=== PATIENT | female | born 1960 | race Caucasian/White ===

== ENCOUNTER → 2017-01-08 | Outpatient (CLI) | payer BC ==
[~2017-01-08] MED LIST: ADVAIR INH; ALBU0.5N2 NEB; AMB10 PO; AMLO-110 PO; CARI350T28 PO; CYCL10TA6 PO; FURO20TA PO; GABA-112 PO; LOSA50TA6 PO; MELATAB2 PO; MULT-506 PO; Pravastatin PO; VITAMIN C PO; VITAMIN D3 PO; Vit B12 PO; WARF2TAB PO; ZINC PO
== END | disposition home or self-care (01) ==
LOC: C.RDSM 07:32
PROVIDERS: ATTEND Physical Medicine & Rehabilitation Sports Medicine
DX: Z96.641 Presence of right artificial hip joint (principal); M25.551 Pain in right hip; M25.552 Pain in left hip

== ENCOUNTER → 2017-01-19 | Outpatient (CLI) | payer BC ==
--- NOTE | 2017-01-20 05:46 | PAP/PSG TECHNICIAN REPORT ---
[facility] Rn Case Manager Polysomnogram Report Study name: None Report date: 01/20/2017 Study date: 01/19/2017 Referring Physician: Alicja Gates M.D. Name: ABELINO MAISHA Jenelle Interpreting Physician: Bulmaro Gates M.D. Date of : 1960 Rn Case Manager: LUCIAN Husain. Sex: Female Age: 56 StudyType: PSG Weight: 255 lbs Height: 56 years, Height 5' 6" Neck Circum: BMI: 41.15 Medications: Mobic7.5mg, losartan Potassium 25mg, Ranitidine HCl 300mg, HCTZ 25mg, Advair, Percocet 5-325mg, Ambien 10mg Patient History Study started on room air with no ETCO2 monitoring in room #6. 56 [facility] She failed 2 home sleep studies. She has a long history of insomnia. She was diagnosed with OREN about 10 years ago but could not tolerate cpap. [facility]. She was instructed to take Ambien tonight but she said it does not work for her and that she will be taking 2 trazadone pills 50mg each. She snores and has witnessed apnea when she does sleep .Her neck circ=16.5inches. Parameters Monitored NPSG: E1-M2, E2-M1, Fp1-M2, Fp2-M1, F3-M2, F4-M2, F4-M1, C3-M2, C4-M2, C4-M1, O1-M2, O2-M2, O2-M1, T3-M2, T4-M1, P3-M2, P4-M1, CHIN1, CHIN2, HR, EKG, Legs, PFLOW, SNOR, FLOW, CFLOW, Tidal Volume, THOR, ABDO, SpO2, PLTH, CPRESS, ETCO2 Wave, ETCO2, pH Sleep Architecture Sleep Stages Time at Lights Off 10:53:55 PM STAGES Time (min.) TST (%) Time at Lights On 5:28:25 AM Wake 169.5 -- Total Recording Time (TRT) 394.50 min. N1 12.0 5 Total Sleep Period (TSP) 264.0 min. N2 124.0 55 Total Sleep Time (TST) 225.0min. N3 66.5 30 Awake Time 169.5 min. REM 22.5 10 Wake after Sleep Onset 39.0 min. Sleep Efficiency (SE) 57 % Sleep Onset Latency (JADON) 130.5 min. Number of Stage 1 Shifts None Awakenings 8 Stage Changes 59 Number of REM periods 5 REM 22.5 10 REM Latency 90.0 min. NREM 202.5 90 Body Position Analysis Supine Right Left Side Prone Vertical Total Sleep Time (min.) 71.3 187.5 35.4 222.85 0.0 0.0 Total Sleep Time (%) 1% 83% 16% 99 0% N/A% Total Sleep Time REM (min.) 0.0 22.5 0.0 None 0.0 0.0 Total Sleep Time NREM (min.) 2.1 165.0 35.4 None 0.0 0.0 Intermittent Wake (min.) 69.2 90.2 10.2 None 0.0 0.0 Total Sleep Period (%) 1% None None None None None Arousals Myoclonus (PLM) * Events Count Index Events Count Index Spontaneous 9 2 Events Awake (PLMW) 188 66.5 Respiratory 13 3.7 Events Asleep w/ Arousal (PLMA) 20 5.3 PLM 20 5 Events Asleep w/o Arousal (PLMS) 164 43.7 Snoring 4 1 Total Asleep 184 49.1 Total 45 12 Total 372 57 Respiratory Analysis * CA OA MA CH H RERA Total Count 0 3 0 0 30 0 33 Index 0.0 0.8 0.0 0 8.0 0 8.8 Mean Duration 0.0 17.4 0.0 0.00 24.8 0.0 24.2 Longest Duration 0.0 23.4 0.0 0.00 0.0 0.0 57.0 Respiratory Event Summary Total Supine ~Supine Right Left Prone REM NREM Apneas Count 3 0 3 1 2 N/A 0 3 Index 0.8 0 1 0.3 3.4 N/A 0 1 Hypopneas (4% Desat) Count 30 3 27 25 2 N/A 12 18 Index 8.0 83.9 7 8.0 3.4 N/A 32.0 5.3 Apneas & All Hypopneas Count 33 3 30 26 4 N/A 12 21 Index 8.8 84 8 8 7 N/A 32.0 6.2 Respiratory Events (Technical Planner+All Hyp+RERA) Count 33 3 30 26 4 N/A 12 21 Index 8.8 84 8 8.3 6.8 N/A 32.0 6.2 Respiratory Related Arousal Count 13 3 12 8 4 N/A 4 10 Index 3.7 56 3 3 7 N/A 11 3 Snoring Analysis Supine Right Left Prone REM NREM Total Snore duration 20.5 min Snores count 7 680 29 N/A 52 664 716 Snore mean duration 1.7 Sec Snores index 196 218 49 N/A 138.7 196.7 190.9 TST with snoring (%) 9.1% Desaturation Event Summary: Minimum %SpO2 Event Count Mean/Min/Max Duration(sec.) Desaturation Index % Time In Bed > 90 53 33.4 / 4.5 / 60.0 9.2 90.2 86 - 90 1 26.5 / 26.5 / 26.5 1.7 9.3 81 - 85 0 N/A 0.0 0.5 76 - 80 0 N/A 0.0 0.0 71 - 75 0 N/A 0.0 0.0 66 - 70 0 N/A 0.0 0.0 61 - 65 0 N/A 0.0 0.0 56 - 60 0 N/A 0.0 0.0 51 - 55 0 N/A 0.0 0.0 < 50 0 N/A 0.0 0.0 Total REM NREM Awake <50% 0.0 min. 0.0 min. 0.0 min. 0.0 min. 51 - 60% 0.0 min. 0.0 min. 0.0 min. 0.0 min. 61 - 70% 0.0 min. 0.0 min. 0.0 min. 0.0 min. 71 - 80% 0.1 min. 0.1 min. 0.0 min. 0.0 min. 81 - 90% 37.3 min. 7.1 min. 28.9 min. 1.3 min. 91 - 100% 345.9 min. 15.3 min. 173.5 min. 157.1 min. Average 93 92 92 95 Minimum SpO2 79 79 79 79 Desaturation Event Index 8.1 32.0 8.6 4.2 # Desat. Events below 89% 11 9 2 0 Time(%) with Saturation below 89% 2.1 1.2 0.7 0.2 Time(min.) with Saturation below 89% 8.2 4.6 2.7 0.9 Time (mins) REM (mins) NREM (mins) % of TST SpO2 Below 90% 28 11 N17 6.2 SpO2 Below 88% 6 0 0 2 Heart Rate Analysis Min (bpm) Max (bpm) Average (bpm) Awake 55 94 68 NREM 49 89 63 REM 56 87 65 Overall 49 89 63 Supplemental O2 Values Minimum O2 level: None Value Start Time End Time Rn Case Manager Comments Mrs. Ahn slept in the right, left and supine positions. No cardiac arrhythmia noted. PLM's were noted. No bruxism noted. Snoring was noted and scored as a 3 on a scale of 1 through 5. (0=no snoring, 5=snoring loud enough to be heard through a closed door or down the fields way) She awoke to use the restroom 2 times during the night. She stated that she slept about the same as usual. The final report will be interpreted and signed by a sleep physician. The completed physician report will then be placed in the patient medical record. Therapy (cm H2O) 0 TIB (min.) 394.5 TST (min.) 225.0 Sleep Onset (min.) 130.5 REM Onset From Sleep (min.) 90.0 Sleep Efficiency % 57 Wakefulness (%) 43 Wakefulness (min.) 169.5 NREM 1 (%) 5 NREM 1 (min.) 12.0 NREM 2 (%) 55 NREM 2 (min.) 124.0 NREM 3 (%) 30 NREM 3 (min.) 66.5 REM (%) 10 REM (min.) 22.5 # Arousals 45 Arousal Index 12 # Snore 716 Snore Index 190.9 AHI 8.8 AHI Supine 84 AHI Non-Supine 8 NREM AHI 6.2 REM AHI 32.0 RDI 8.8 # Obstructive Apnea 3 # Central Apnea 0 # Mixed Apnea 0 # Hypopneas 30 RERAs 0 Total Respiratory Events 37 Time Below SpO2 89% (min.) 7.3 Mean NREM SpO2 (%) 92 Mean REM SpO2 (%) 92 Mean Sleep SpO2 (%) 92 Min NREM SpO2 (%) 79 Min REM SpO2 (%) 79 Position Supine (min.) 71.3 Position Non-supine (min.) 222.9 LM Index Sleep 49.1 LM Index NREM 50.1 LM Index REM 40.0 Mean Heart Rate (bpm) 63 Min Heart Rate (bpm) 49
--- NOTE | 2017-02-12 19:03 | POLYSOMNOGRAPH REPORT ---
REFERRING PERSON: Dr. Darlene Gates. OFFICE AIDE: Teresa Stephens. Ms. Ahn is a 56-year-old female who is sent for a diagnostic sleep study. She has failed 2 previous home sleep studies. She has a long history of insomnia. She was diagnosed with obstructive sleep apnea 10 years ago but could not tolerate CPAP at that time. Although she was given a prescription for Ambien tonight, she does believe that would work for her, so she is taking two 50 mg tablets of trazodone to help her sleep. She does snore and has been told that she pauses in her breathing when she sleeps. Bena sleepiness scale score on the evening of this study is not recorded and BMI is 41.15. Following the technical and digital specifications of the [employer] [employer] (AASM) a standard diagnostic polysomnogram was performed monitoring EEG, EOG, EMG (chin and leg deviations), oxygen saturation, body position, digital video, respiratory effort and airflow. The sleep Stage and event scoring was based on the AASM Manual for the Scoring of Sleep and Associated Events 2007 edition. Apneas are defined as a drop in the peak thermal sensor excursion by >90% of baseline for at least 10 seconds. Hypopneas were scored using the 4% oxygen desaturation rule (4A-[employer]ic[employer]) and a decrease in the nasal pressure excursions by >30% of baseline for at least 10 seconds. Respiratory effort-related arousal (RERA's) is defined as a sequence of breaths lasting at least 10 seconds characterized by increasing respiratory effort or flattening of the nasal pressure waveform leading to an arousal from sleep when the sequence of breaths does not meet criteria for an apnea or hypopnea. Apnea Hypopnea index (AHI) is defined as the number of apneas and hypopneas occurring in an hour of sleep. Respiratory disturbance index (RDI) is defined as the number of apneas, hypopneas, and RERA's occurring in an hour of sleep. Ms. Ahn's total sleep period time was 264 minutes. Total sleep time was 225 minutes. Sleep efficiency was 57%. Latency to sleep onset was 130.5 minutes. Wake after sleep onset was 39 minutes. Total non-REM sleep time was 202.5 minutes. She spent 5% of that time in N1 sleep, 55% in N2 sleep and 30% in N3 sleep. REM latency was 90 minutes. Total REM sleep time was 22.5 minutes or 10% of total sleep time. There were 45 arousals from sleep. Nine of these arousals were spontaneous, 13 were due to respiratory events, 20 were due to periodic limb movements of sleep and 4 were due to snoring. There were 184 periodic limb movements noted on this test. Limb movement index was 49.1 and limb movement with arousal index was 5.3. There were no central, 3 obstructive and no mixed apneas on this test. There were 30 hypopneas. Apnea-hypopnea index was elevated at 8.8 consistent with mild sleep apnea. Most of these events occurred during supine REM sleep. Supine AHI was 84 and REM AHI was 32. There were 716 snoring events recorded on this test. Total sleep time with snoring was 9.1%. Mean saturation was 93% with desaturations to 79%. Saturations were less than 89 for 8.2 minutes of recorded time. There was no cardiac ectopy noted on this study. Heart rates ranged from a low of 49 beats per minute to a high of 89 beats per minute during sleep. IMPRESSION AND PLAN: A 56-year-old female with evidence of mild sleep apnea and mild nocturnal hypoxemia on this sleep study. 1. This patient's insomnia is likely exacerbated by untreated sleep apnea with mild nocturnal hypoxemia. Treatment for her apnea should be pursued. I would recommend CPAP therapy, if she is willing to try this again. She will be started on auto-titrating CPAP at home and a download from her machine reviewed in 1 month both to check compliance as well as apnea-hypopnea index. 2. Should this patient be unwilling or unable to tolerate CPAP therapy, she could be referred to ear, nose and throat or oral surgery/dental medicine (if appropriate) to discuss alternative treatments for sleep-disordered breathing.
== END | disposition home or self-care (01) ==
LOC: C.NEUR 20:00
PROVIDERS: ATTEND Family Medicine
DX: G47.10 Hypersomnia, unspecified (principal); E66.01 Morbid (severe) obesity due to excess calories; G47.00 Insomnia, unspecified

== ENCOUNTER → 2017-04-19 | Outpatient (CLI) | payer BC | END | disposition home or self-care (01) | LOC: C.RDSM 14:03 | PROVIDERS: ATTEND Family Medicine Sports Medicine | DX: M25.561 Pain in right knee (principal) ==

== ENCOUNTER → 2017-04-27 | Outpatient (CLI) | payer BC ==
--- NOTE | 2017-04-27 19:59 | DIAGNOSTIC IMAGING REPORT ---
MRI THE RIGHT KNEE NO CONTRAST CLINICAL HISTORY: Right knee pain and swelling COMPARISON STUDY: Conventional radiographic study dated 04/19/2017 FINDINGS: Imaging was performed the sagittal, coronal, and axial planes. There are no areas of marrow edema to indicate occult fracture or bone bruise. The quadriceps and patellar tendons appear intact. The anterior and posterior crucial ligaments appear intact. The medial and lateral collateral ligaments appear intact. The patellar retinacular structures appear intact. There is a small joint effusion. There is a small popliteal cyst. 2 loose bodies are visualized medially measuring 6 mm and 5 mm respectively. There are advanced arthritic changes present within the medial joint compartment with marked cartilaginous thinning. There are prominent medial joint compartment osteophytes. There is medial extrusion of the medial meniscus which appears degenerated and frayed/torn. Degenerative changes are also present within the patellofemoral joint with femoral and patellar osteophytic spurring. IMPRESSION: 1. Extrusion of the medial meniscus which demonstrates a degenerative tear 2. Marked degenerative changes within the medial joint compartment with marked cartilaginous thinning and degenerative subchondral edema 3. Small joint effusion with medial loose bodies. Small popliteal cyst. 4. Degenerative changes within the patellofemoral joint 5. No evidence of cruciate or collateral ligament disruption Electronically signed by: Hal Garrido M.D. 04/27/2017 7:58 PM Dictated Date/Time: 04/27/2017 7:48 PM
== END | disposition home or self-care (01) ==
LOC: C.MRI 18:45
PROVIDERS: ATTEND Family Medicine Sports Medicine
DX: M17.11 Unilateral primary osteoarthritis, right knee (principal); S83.241A Other tear of medial meniscus, current injury, right knee, initial encounter; X58.XXXA Exposure to other specified factors, initial encounter; M71.21 Synovial cyst of popliteal space [Baker], right knee

== ENCOUNTER → 2017-05-21 | Outpatient (CLI) | payer BC | END | disposition home or self-care (01) | LOC: C.RDSM 11:32 | PROVIDERS: ATTEND Physical Medicine & Rehabilitation Sports Medicine | DX: M25.561 Pain in right knee (principal) ==

== ENCOUNTER → 2017-08-20 | Outpatient (CLI) | payer BC, OTHER | END | disposition home or self-care (01) | LOC: C.RDSM 08:00 | PROVIDERS: ATTEND Physical Medicine & Rehabilitation Sports Medicine | DX: Z96.641 Presence of right artificial hip joint (principal) ==

== ENCOUNTER 2023-11-21 05:24 | Observation (INO) ==
--- NOTE | 2023-10-18 13:10 | PAT Medication Instructions ---
Medication Instructions Date of Service October 18, 2023 Home Medications albuterol sulfate 90 mcg/actuation aerosol inhaler 1 - 2 puff inhalation .Q4-6H PRN Shortness Of Breath amlodipine 5 mg tablet 5 mg PO QAM cyclobenzaprine 10 mg tablet 10 mg PO TID PRN MUSCLE SPASMS fluticasone propionate 230 mcg-salmeterol 21 mcg/actuation HFA inhaler (Advair HFA) 2 puff inhalation BID PRN Wheezing multivitamin (Multiple Vitamins tablet) 1 tab PO QAM oxycodone 5 mg capsule 5 mg PO Q6H PRN Pain trazodone 50 mg tablet 50 - 75 mg PO HS PRN Sleep celecoxib 200 mg capsule 200 mg PO QAM eszopiclone 3 mg tablet 3 mg PO HS PRN Sleep furosemide 20 mg tablet 20 mg PO DAILY PRN Fluid Retention propranolol 80 mg capsule,24 hr,extended release 160 mg PO QAM benzonatate 100 mg capsule 100 mg PO TID PRN Cough magnesium oxide 400 mg PO DAILY PRN Anxiety mv-min-vit C 250 [id number] HCl-herb 124 12.5 mg chewable tablet (Immune Support) 1 tab PO HS primidone 50 mg tablet 50 mg PO QAM Herbal Blend 1 dose PO DAILY ASK your surgeon for instructions celecoxib 200 mg capsule 200 mg PO QAM STOP taking 2 weeks before surgery (or as soon as possible if surgery is within 2 weeks) mv-min-vit C 250 [id number]-vmrkk HCl-herb 124 12.5 mg chewable tablet (Immune Support) 1 tab PO HS Herbal Blend 1 dose PO DAILY DO NOT take the morning of surgery multivitamin (Multiple Vitamins tablet) 1 tab PO QAM furosemide 20 mg tablet 20 mg PO DAILY PRN Fluid Retention benzonatate 100 mg capsule 100 mg PO TID PRN Cough magnesium oxide 400 mg PO DAILY PRN Anxiety Take morning of surgery With a small sip of water, OTHERWISE NOTHING TO EAT OR DRINK AFTER MIDNIGHT: albuterol sulfate 90 mcg/actuation aerosol inhaler 1 - 2 puff inhalation .Q4-6H PRN Shortness Of Breath (use if needed; please bring rescue inhaler with you to hospital day of surgery if possible) amlodipine 5 mg tablet 5 mg PO QAM cyclobenzaprine 10 mg tablet 10 mg PO TID PRN MUSCLE SPASMS (if needed) fluticasone propionate 230 mcg-salmeterol 21 mcg/actuation HFA inhaler (Advair HFA) 2 puff inhalation BID PRN Wheezing (if needed) oxycodone 5 mg capsule 5 mg PO Q6H PRN Pain (if needed) propranolol 80 mg capsule,24 hr,extended release 160 mg PO QAM primidone 50 mg tablet 50 mg PO QAM Take evening before surgery albuterol sulfate 90 mcg/actuation aerosol inhaler 1 - 2 puff inhalation .Q4-6H PRN Shortness Of Breath (if needed) cyclobenzaprine 10 mg tablet 10 mg PO TID PRN MUSCLE SPASMS (if needed) fluticasone propionate 230 mcg-salmeterol 21 mcg/actuation HFA inhaler (Advair HFA) 2 puff inhalation BID PRN Wheezing (if needed) oxycodone 5 mg capsule 5 mg PO Q6H PRN Pain (if needed) trazodone 50 mg tablet 50 - 75 mg PO HS PRN Sleep (if needed) eszopiclone 3 mg tablet 3 mg PO HS PRN Sleep (if needed) furosemide 20 mg tablet 20 mg PO DAILY PRN Fluid Retention (if needed) benzonatate 100 mg capsule 100 mg PO TID PRN Cough (if needed) magnesium oxide 400 mg PO DAILY PRN Anxiety (if needed) Other Notes If you have any questions please call us at [phone] or [phone] or [phone] or [phone]
--- NOTE | 2023-10-26 15:16 | Anesthesiology Consultation ---
Date of Service October 26, 2023 Assessment & Plan (1) Encounter for pre-operative examination: - Infectious disease screening: Per assessment on 10/26/23: No known infectious disease contacts or current infectious disease symptoms. No noted recent Covid positive test result. - Outpatient joint assessment: Pt currently scheduled for inpatient pathway. If surgeon requests review for outpatient joint pathway, patient is not recommended candidate for outpatient joint program from anesthesia standpoint based upon available information. - S/P Right BONNIE (02/16/16): SAB at L3/4, 1 attempt at [facility] (of note, hx ankylosing spondylitis) - Pending: * Awaiting surgeon-ordered PCP preop evaluation (Dr. Overton/[facility], appt 10/30). * Awaiting upcoming Echo (Dr. Powell, 10/29) and preop cardiology evaluation (Dr. Powell, scheduled 11/04). Chart Review Chart Review: Patient seen in Pre Admission Testing Teaching & Discussion Pre-Anesthesia Teaching/Discussion Notes: Instructed NPO after midnight before surgery,except medications with 15 cc of water. Medication instructions provided according to the PAT guidelines. History Surgery Operation Date: 11/21/23 07:00 Proposed Procedures p Left Total Hip Arthroplasty - Emmanuel Malik MD Height/Weight Height: 5 ft 6 in Weight: 116.5 kg Allergies Allergy/AdvReac Type Severity Reaction Status Date / Time AKIRA Inhibitors Allergy Intermediate Wheezing Verified 10/12/23 14:28 Iodinated Contrast Media Allergy Intermediate Wheezing Verified 10/25/23 15:02 Aromatic Oils Allergy Intermediate Wheezing Uncoded 10/25/23 15:02 (Perfumes) Dust Allergy Mild Dust, Uncoded 10/25/23 15:02 mold- runny nose Medications Home Medications Medication Instructions Recorded Confirmed Last Taken albuterol sulfate 90 mcg/actuation 1 - 2 puff inhalation .Q4-6H PRN 06/22/20 10/12/23 07/19/21 aerosol inhaler Shortness Of Breath amlodipine 5 mg tablet 5 mg PO QAM 06/22/20 10/12/23 07/19/21 cyclobenzaprine 10 mg tablet 10 mg PO TID PRN MUSCLE SPASMS 06/22/20 10/12/23 07/19/21 fluticasone propionate 230 2 puff inhalation BID PRN Wheezing 06/22/20 10/12/23 07/19/21 mcg-salmeterol 21 mcg/actuation HFA inhaler (Advair HFA) multivitamin (Multiple Vitamins 1 tab PO QAM 06/22/20 10/12/23 07/18/21 tablet) oxycodone 5 mg capsule 5 mg PO Q6H PRN Pain 06/22/20 10/12/23 Unknown trazodone 50 mg tablet 50 - 75 mg PO HS PRN Sleep 06/22/20 10/12/23 07/19/21 celecoxib 200 mg capsule 200 mg PO QAM 12/13/20 10/12/23 07/19/21 eszopiclone 3 mg tablet 3 mg PO HS PRN Sleep 12/13/20 10/12/23 07/18/21 furosemide 20 mg tablet 20 mg PO DAILY PRN Fluid Retention 12/13/20 10/12/23 07/18/21 propranolol 80 mg capsule,24 160 mg PO QAM 12/13/20 10/12/23 07/19/21 hr,extended release benzonatate 100 mg capsule 100 mg PO TID PRN Cough 07/13/21 10/12/23 07/19/21 magnesium oxide 400 mg PO DAILY PRN Anxiety 07/13/21 10/12/23 07/18/21 mv-min-vit C 250 ww-drsufj-hqwqz 1 tab PO HS 07/13/21 10/12/23 07/19/21 HCl-herb 124 12.5 mg chewable tablet (Immune Support) primidone 50 mg tablet 50 mg PO QAM 07/13/21 10/12/23 07/19/21 Herbal Blend 1 dose PO DAILY 10/12/23 10/12/23 Unknown Past Medical History Medical History Aneurysm of thoracic aorta Ascending aortic aneurysm under surveillance by cardio, "Stable" Follows with Dr. Powell Ankylosing spondylitis Arthritis Asthma Essential tremor Hands, Reason for Primidone History of blood clots RLE DVT (~2013), was on blood thinner for short period of time then discontinued No issues since History of stomach ulcers Hypertension Insomnia Migraine Obesity Osteoporosis Sleep apnea No device Exercise / Class Metabolic Activity III < 4 Walking/Shop/Light housework Past Family History Family History Aunt Ovarian cancer Maternal Other Diabetes Hypertension No family history of adverse response to anesthesia Denies family history of Breast cancer Colorectal cancer Uterine cancer Past Surgical History Surgical History H/O ventral hernia repair History of colonoscopy History of lumbar fusion History of right hip replacement History of tonsillectomy History of tooth extraction History of wisdom tooth extraction S/P epidural steroid injection Past Anesthesia History No Family Hx of Anesthesia Complications and Other (Awareness with Right BONNIE) History of PONV No Hx of PONV and No Hx of Motion Sickness Social History Smoking Status: Former smoker Do You Dip or Chew Tobacco: No Smoking End Date: Former light use in college Hx Alcohol Use: Yes alcohol intake frequency: holidays/special occasions only Hx Substance Use: No substance use type: does not use Review of Systems Patient denies chest pain, shortness of breath, fever, chills, cough, wheezing, palpitations. Physical Exam Vital Signs BP 138/86 P 67 TEMP 98.2 SP02 96%RA RESP 18 Physical Full cervical extension range of motion. Full TMJ range of motion. TMD 3 finger breaths (difficult to palpate) Mallampati Score 3 Dentition: + cap (upper front), upper/lower partial dentures Lungs: clear throughout to auscultation Cardiac: regular rate and rhythm, no murmurs noted Spine: normal Carotid arteries: negative bruit Extremities: non-pitting LE edema Lab Results Anesthesia Preop Results Results Anesthesia Widget: WBC 6.01 K/ul (4.8-10.8) 10/26/23 Hgb 12.6 g/dl (12.0-16.0) 10/26/23 Hct 38.0 % (37.0-47.0) 10/26/23 Plt 347 K/uL (130-400) 10/26/23 Na 138 mmol/L (136-145) 10/26/23 K 4.4 mmol/L (3.5-5.1) 10/26/23 Cl 104 mmol/L (98-107) 10/26/23 CO2 28 mmol/L (21-32) 10/26/23 BUN 21 mg/dl (6-23) 10/26/23 Creat 0.77 mg/dl (0.6-1.2) 10/26/23 Glucose Level 101 mg/dl (70-99(Fasting)) H 10/26/23 PT 10.9 Seconds (9.0-12.0) 10/26/23 PTT 29 Seconds (21-31) 10/26/23 INR 1.0 (0.9-1.1) 10/26/23 Urine Color Yellow 10/26/23 Urine Appearance Cloudy (Clear) A 10/26/23 Urine pH 5.0 (4.5-7.5) 10/26/23 Urine Specific Rice 1.029 (1.000-1.030) 10/26/23 Urine Protein Negative (Negative) 10/26/23 Urine Glucose (UA) Negative (Negative) 10/26/23 Urine Ketones Trace (Negative) H 10/26/23 Urine Blood Negative (Negative) 10/26/23 Urine Nitrite Negative (Negative) 10/26/23 Urine Bilirubin Negative (Negative) 10/26/23 Urine Urobilinogen Negative (Negative) 10/26/23 Urine Leukocyte Esterase 1+ (Negative) H 10/26/23 Urine WBC (Auto) 11-20 /hpf (0-5) H 10/26/23 Urine RBC (Auto) 0-2 /hpf (0-2) 10/26/23 Urine Hyaline Casts (Auto) 0-2 /lpf (0-2) 10/26/23 Urine Epithelial Cells (Auto) 6-10 /hpf (0-2) H 10/26/23 Urine Bacteria (Auto) None Seen (None Seen) 10/26/23 Blood Type B Positive 10/26/23 Antibody Screen NEGATIVE 10/26/23 Testing Electrocardiogram Date: 10/26/23 NSR at 67bpm. LAD. 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 Chest X-Ray Date: 10/26/23 FINDINGS: PA and lateral chest radiographs are compared to study dated 12/13/2020. Correlation is made with chest CT dated 11/21/2011. The cardiomediastinal silhouette is top normal for projection. The lungs and pleural spaces are clear. There is no pneumothorax. The skeletal structures are osteopenic. The bony thorax appears intact. Degenerative change is noted in the shoulders and spine. IMPRESSION: No active disease in the chest.
[2023-11-21] MEDS ORDERED: BUPIVACAINE 0.5 % 5 MG/1 ML PF 10ML VIAL ONE (06:19)
--- NOTE | 2023-11-21 06:20 | History & Physical Bridge Note ---
Date of Service November 21, 2023 History & Physical Bridge Note I have examined the patient, reviewed the History & Physical and in the interval since the performance of the History & Physical I have noted the following changes of clinical significance: consent and site verified/option of dual mobility implant raised secondary to lumbar spine fusion.no changes noted
[2023-11-21] MEDS: LR 500ML BOLUS, THEN 15ML/HR IV SCH (06:30)
[2023-11-21] MEDS ORDERED: ONDANSETRON INJ 2 MG/ML 2 ML VIAL IV PRN (06:34)
[2023-11-21] MEDS ORDERED: ATROPINE SULFATE 0.1 MG/ML 10ML SYR IV PRN (06:34)
[2023-11-21] MEDS ORDERED: fentaNYL citrate PF 100 MCG/2 ML VIAL IV PRN (06:34)
[2023-11-21] MEDS ORDERED: ePHEDrine sulfate 50 MG/ML AMP IV PRN (06:34)
[2023-11-21] MEDS ORDERED: MIDAZOLAM HCL 1 MG/ML 2ML VIAL ONE ×2 (06:36→06:37)
[2023-11-21] MEDS ORDERED: fentaNYL citrate PF 100 MCG/2 ML VIAL ONE ×2 (06:36→06:37)
[2023-11-21] MEDS: TRANEXAMIC ACID 1,000 MG **IV Pre-op IV SCH (06:42)
[2023-11-21] MEDS: ceFAZolin 3000MG 3,000 MG/72.5 ML BAG IV SCH (06:58)
[2023-11-21] MEDS: LR 60ML/HR IV SCH (07:00)
[2023-11-21] MEDS: TRANEXAMIC ACID 1,000 MG **IV Intra-op IV SCH (08:14)
[2023-11-21] MEDS: ORTHO JOINT ANESTHETIC ONE (08:15)
[2023-11-21] MEDS ORDERED: ONDANSETRON INJ 2 MG/ML 2 ML VIAL ONE (08:25)
[2023-11-21] MEDS ORDERED: PROPOFOL IV EMULSION 10 MG/ML 100 ML VIAL IV ONE ×2 (08:25→08:27)
[2023-11-21] MEDS ORDERED: GLYCOPYRROLATE 0.2 MG/ML VIAL ONE (08:25)
[2023-11-21] MEDS ORDERED: LIDOCAINE 2% 2 ML VIAL/AMP(20MG/ML) INFIL ONE (08:25)
[2023-11-21] MEDS: ROPIV 0.5% 246mg, Ketorolac 30mg, EPINEPHrine 0.5mg in NSS INFIL SCH (08:33)
--- NOTE | 2023-11-21 08:58 | Post Operative Brief Note ---
Immediate Post Op Note v1 Date of Surgery November 21, 2023 Pre & Post Diagnosis Operation Date: 11/21/23 07:00 <No data on this case meets the specified criteria> Severe osteoarthritis left hip pre and postop diagnosis same I identified the patient and participated in the time-out.: Yes Procedure Operation Date: 11/21/23 07:00 <No data on this case meets the specified criteria> Noncemented left total hip arthroplasty with dual mobility Surgeon Emmanuel Malik [facility] or fellow available Estimated Blood Loss 200 Findings Consistent with Post-Op Diagnosis Severe osteoarthritis high BMI patient modifier 22 for more difficult case Fluids See anesthesia report
--- NOTE | 2023-11-21 09:03 | Operative Report ---
Post Operative Report Pre & Post Diagnosis Operation Date: 11/21/23 07:00 <No data on this case meets the specified criteria> Severe osteoarthritis left hip high BMI morbid obesity left hip pre and postop diagnosis same I identified the patient and participated in the time-out.: Yes Procedure Operation Date: 11/21/23 07:00 <No data on this case meets the specified criteria> Noncemented dual mobility left total replacement. Surgeon Emmanuel Malik MD Billing Checker Henny no resident or fellow available Estimated Blood Loss 200 Findings Consistent with Post-Op Diagnosis Severe osteoarthritis high BMI more complex case based on the closure longer with retention sutures use appropriate modifier Fluids See anesthesia report Specimens Bone Drains None Complications None Indications Severe pain marked osteoarthritis and dysplasia left hip Description of Procedure After the patient was appropriate notified site verified consent verified she was carefully placed in the right lateral decubitus position with everything appropriately padded as well as me possible based on the patient's size. Appropriate landmarks were placed at the medial malleoli and the bilaterally and the patella on the right. Leg lengths were relatively equal. This was both in the supine and in the lateral decubitus position. Once everything was prepped and draped use routine fashion and an appropriate sized incision was made to allow appropriate retraction. Full-thickness flaps were raised the IT band and gluteus manny fascia were then incised under direct vision. Care taken to protect the sciatic nerve. Appropriate retractor placed. Short external rotators were then dissected and released the capsule was then teed and preserved and the hip dislocated the femoral neck resected. The acetabulum had significant labral tearing and marked destruction of articular cartilage and marked synovitis there was exuberant fluid. The head had marked eburnation over at least 30 to 40% with marked irregular osteophytes. Appropriate exposure was obtained and serial reaming up to the 54 was performed on the acetabulum match the opposite side a 54 cup impacted into appropriate anteversion inclination and an excellent fixation and then also fixed with a 6.5 x 25 screw with excellent purchase. Osteophytes were resected and then the dual mobility liner was placed. It was elected to use a dual mobility liner based on her back fusion in the recent past. Femur was then flexed internally rotated proximal femur prepared with the rongeur box truck washer canal finder lateralizing rasp and serial broaching up to a size 3 performed with excellent fit trial reduction was carried out with a high offset +528 head and was excellent. The hip was stable in all planes. The trial femur was then removed. The wound was irrigated multiple times prior to putting in the permanent cup and liner with the Betadine as well as after the femur was broached and reamed. Once this was all irrigated finally the permanent stem and head were seated and reduction carried out it was excellent it was stable in all planes the leg lengths were excellent. The wound was irrigated 1 final time and the capsule closed with #2 Vicryl short external rotators with #2 Vicryl deep fascia with #2 Vicryl the deep adipose layer with #2 Vicryl the superficial adipose layer with 2-0 Vicryl the skin with standstill clips and then backed up with retention sutures of 3-0 Prolene. Appropriate dressing applied the patient transferred recovery in satisfactory understanding tolerated the procedure well. EBL was roughly 200 cc distally per anesthesia bone pathology pending DVT prophylaxis per protocol. Summary of implant size 54 acetabular shell sector cup 6.5 x 25 screw hole eliminator. Dome cover 54 x 47 liner 3 high offset femoral stem with collar 47 x 28 bipolar and a 28+5 ceramic femoral head. Attempt was made to contact her [place] but went to voicemail left a message. I attest to the content of the Intraoperative Record and any orders documented therein. Any exceptions are noted below.
--- NOTE | 2023-11-21 09:05 | Discharge Summary ---
Date of Service November 22, 2023 Admission HPI Per Admitting Provider Severe osteoarthritis with dysplasia left hip Principal Diagnosis Severe osteoarthritis with dysplasia left hip Discharge Data Allergies Allergy/AdvReac Type Severity Reaction Status Date / Time AKIRA Inhibitors Allergy Intermediate Wheezing Verified 10/12/23 14:28 Iodinated Contrast Media Allergy Intermediate Wheezing Verified 10/25/23 15:02 mold Allergy Intermediate Verified 11/21/23 06:03 Aromatic Oils Allergy Intermediate Wheezing Uncoded 10/25/23 15:02 (Perfumes) Dust Allergy Mild Dust, Uncoded 10/25/23 15:02 mold- runny nose Vaccinations None Consultations None Procedures Performed Operation Date: 11/21/23 07:00 <No data on this case meets the specified criteria> Noncemented dual mobility left total hip replacement Ordered Studies X-rays Hospital Course (1) Status post left hip replacement: Plan Continue care pathway for hip replacement and high BMI patient Total Time Total Time Spent Total Time Spent (In Minutes): 5 Discharge Plan Discharge Items Reason For Visit: Left Hip Osteoarthritis Discharge Diagnosis: Same Condition on Discharge: Good Activity: Per Instructions section Lifting: Wait until after follow-up appointment Bathing: Keep incision dry Sexual Activity: Wait until after follow-up appointment Exercise/Sports: Wait until after follow-up appointment Call non-emergency contact if: you have any medication questions, your pain is not controlled, your temperature is above 101.5, your wound has increased redness, your wound has increased drainage and your wound pain has increased Follow-up/Referrals: Jazmín Overton DO [Primary Care Provider] - Addtl Attending Provider Instructions: DIET: * Resume previous diet. MEDICATIONS: * Please take your prescriptions as instructed at your pre-op appointment and/o r see medication discharge instructions listed above. * If concerns develop, call your physician's office at . SPECIAL CARE INSTRUCTIONS: * Ice/Elevate as instructed. * Keep dressing clean, dry, intact. * Your surgical extremity may be discolored due to prepping agents used on the skin. A bluish-green tint is a normal variant and should not cause alarm. Call your doctor at [phone] if: * Temperature above 101 degrees * Pain not relieved by pain medicine ordered * There is increased drainage or redness from any incision * You have any unanswered questions, problems or concerns. FOLLOW UP VISIT: * If not already scheduled, please call the office at to schedule a follow-up appointment. New Medicine: * You will likely be taking one or more of these medicines: 1. Percocet - Take, as directed, when you need it, every four to six hours to control your pain. 2. Iron Sulfate - Take three times each day for the month after surgery to help you replace the blood lost during surgery. 3. Eliquis - Thins your blood to lessen the chance of forming a blood clot. * The most common side effects of pain medicine and iron are nausea and constipation. If nausea or constipation is too much of a problem or if you have any questions about your new medicines or doses, call [facility] at . We will try to help you manage these issues. "VERY IMPORTANT TO READ AND REVIEW" Blood Clots and Blood Thinning Medicine: * You are given Eliquis during the immediate post-operative period to lessen the risk of blood clots forming in your legs and/or lungs. It is usually given for 4 weeks after Pain: * The immediate post-operative period after hip replacement surgery is often quite painful. * You are given a prescription for pain medicine. You should take it, as directed, when you need it, especially before physical therapy and before going to bed. Pain that interferes with sleep is very common and can last several months. * You will likely need pain medicine for the first two to four weeks. It will not stop all of the pain. The pain will lessen and as you feel better, you may change to milder pain medicine such as Tylenol. * The most common side effects of pain medicine are nausea and constipation, so don't take more than you need. Physical Therapy: * Follow the "Hip Precautions Instructions." * In some cases, the social worker delinquency prevention at the hospital will arrange to have a therapist come to your house for the first couple of weeks to help you learn these skills. * You need to practice on your own or with the help of a family member as needed. * When you learn these skills, most of the therapy can be done on your own. Home Exercise: * You were shown a series of exercises in the hospital. Do these exercises three to four times each day including the exercises you were shown in physical therapy. Walking: * Get up and walk several times each day. For the first four weeks, try not to stand or walk for more than one hour at a time. If you do stand or walk for more than one hour, you will not hurt anything, but your leg will likely swell. * As you feel comfortable, you may change from the walker or crutches to a cane and then to independent walking. SELF CARE INSTRUCTIONS AFTER TOTAL HIP REPLACEMENT Until the incision and soft tissues around your hip have healed, there is a possibility that the hip prosthesis could dislocate. A. Observe the following precautions to prevent dislocation: 1. Don't bend your hip greater than 90 degrees. 2. Avoid crossing your legs or ankles while standing or lying. 3. Sit with your feet placed 6 inches apart. 4. When sitting, keep your knees below your hips. Sit on a firm surface, avoid deep, soft chairs and couches. Use an elevated toilet seat in the bathroom. 5. Don't bend over at the waist. Use a long handled shoehorn and a sock aid to help you put on your shoes and socks. A certified physician assistant can help you shrimp picker objects that are too high or too low to reach. 6. Keep car riding to a minimum for at least one month after surgery. B. Your balance may be shaky for a while. Use crutches or a walker until directed by your doctor. C. Use hand rails when walking on stairs. D. Wear low heeled shoes with non-slip soles. E. Be sure that your floors are free of things that could trip you - throw rugs, electrical cords, small objects. Avoid wet and waxed floors, especially with crutches and canes. F. Try to walk several times a day with rest periods between. G. Continue with all the exercises taught to you in the hospital. Again, make walking a part of your daily routine. VERY IMPORTANT TO READ AND REVIEW A. Take Eliquis (blood thinning medication) as directed by your doctor. B. There are a few signs you need to watch for after you are home. If you notice any of the followin. Increased severe hip pain. Some pain is expected especially when you exercise. 2. Increased swelling in your leg or knee; pain or swelling of the calf muscle in either lower leg. 3. Any fluid drainage from the incision. 4. Shortness of breath or chest pain. TEDs/Elastic Stockings: * The white elastic stockings help limit swelling and prevent blood clots from forming in your legs. The more you wear them, the more they work. * Wear them for six weeks. Prevention of Infection: * Take antibiotics one hour before any dental cleaning, dental work, urological procedure, gastrointestinal procedure or any invasive surgery in order to prevent your new joint from getting infected. * You may get the antibiotics from the doctor performing the procedure or we will call in a prescription to the pharmacy of your choice. Call the office for a prescription at least 2 days prior to your appointment. Things to Watch For: * Drainage from the incision site that occurs more than one week after your surgery. * Severely increased leg pain or swelling. * Increased redness at the incision site. * Fever above 101 degrees Fahrenheit. * Unusual chest pain or shortness of breath. * Unusual pain or burning with urination. Pending Studies at Discharge: Yes (Bone pathology) Stand-Alone Forms: [facility] Medications and DC Order Prescriptions: No Action Advair HFA 230-21 mcg/actuation HFA aerosol inhaler 2 puff inhalation BID PRN (Reason: Wheezing) albuterol sulfate 90 mcg/actuation HFA aerosol inhaler 1 - 2 puff inhalation .Q4-6H PRN (Reason: Shortness Of Breath) oxycodone 5 mg capsule 5 mg PO Q6H PRN (Reason: Pain) amlodipine 5 mg tablet 5 mg PO QAM cyclobenzaprine 10 mg tablet 10 mg PO TID PRN (Reason: MUSCLE SPASMS) multivitamin [Multiple Vitamins] Tablet 1 tab PO QAM trazodone 50 mg tablet 50 - 75 mg PO HS PRN (Reason: Sleep) celecoxib 200 mg capsule 200 mg PO QAM propranolol 80 mg capsule,extended release 24 hr 160 mg PO QAM furosemide 20 mg tablet 20 mg PO DAILY PRN (Reason: Fluid Retention) eszopiclone 3 mg tablet 3 mg PO HS PRN (Reason: Sleep) Immune Support 250-12.5 mg Tablet,Chewable 1 tab PO HS magnesium oxide 400 mg magnesium Tablet 400 mg PO DAILY PRN (Reason: Anxiety) benzonatate 100 mg capsule 100 mg PO TID PRN (Reason: Cough) primidone 50 mg Tablet 50 mg PO QAM Herbal Blend 1 dose PO DAILY Admission Data Admit Date/Time: 11/21/23 09:16 Attending Provider: Emmanuel Malik Admit Provider: Emmanuel Malik Primary Care Provider: Jazmín Overton
--- NOTE | 2023-11-21 09:06 | Operative Report ---
Post Operative Report Pre & Post Diagnosis Operation Date: 11/21/23 07:00 Pre-Op Diagnosis: Left Hip Osteoarthritis Post-Op Diagnosis: Left Hip Osteoarthritis I identified the patient and participated in the time-out.: Yes Procedure Operation Date: 11/21/23 07:00 Actual Procedures p Left Total Hip Arthroplasty(Left) - Emmanuel Malik MD Surgeon NICKO Malik MD Air Brush Decorator Henny HAGAN no resident or fellow available Estimated Blood Loss 200 Findings Consistent with Post-Op Diagnosis see operative report Specimens see operative report Drains none Complications none Disposition Accompanied Patient To Recovery: Yes Indications This 63 year old female presented to the office with complaints of persisting left hip pain. She had tried conservative care measures without improvement. She has a history of previous right total hip arthroplasty and has done very well with it. She elected to proceed with the same on the left. Preoperative imaging was obtained. Description of Procedure The patient was administered a spinal anesthetic and then taken to the operating room where she was given sedation. She was prepped and draped in the usual sterile fashion. Please see Dr. Malik's operative report for specifics of the procedure. I was present for the entire case from initial patient positioning through final wound closure. Assistance was provided in tissue retraction, hemostasis, trial implant placement, final implant placement, and final wound closure. The patient was taken to the recovery room in satisfactory condition. I attest to the content of the Intraoperative Record and any orders documented therein. Any exceptions are noted below.
--- NOTE | 2023-11-21 09:07 | Orthopedic Progress Note ---
Date of Service November 21, 2023 Orthopedic Progress Note Tolerated left total replacement with spinal anesthesia in the right lateral decubitus position with appropriate padding. It was intended to not to put any real direct pressure on her spinal wound. This was relatively recent. She denies chest pain shortness of breath fever chills nausea vomiting headache. Vital signs are stable she is afebrile. Wound dressing clean dry and intact. X-rays are pending. Leg lengths are excellent. Attempted to reach out to is not available went to voicemail. Left a message. Advised him to call nursing if he has any questions. DVT prophylaxis per protocol can begin mobilization once her legs are awake. Get off her back to try to minimize any pressure sores.
--- NOTE | 2023-11-21 09:34 | Anesthesiology Progress Note ---
Date of Service November 21, 2023 Anesthesia Post Procedure Vital Signs Vital Signs: Temp Pulse Pulse Resp BP Pulse Ox O2 Del Method 11/21/23 09:25 69 12 156/94 H 98 Room Air 11/21/23 09:15 74 14 151/98 H 100 Oxymask 11/21/23 09:05 82 16 140/79 100 Oxymask 11/21/23 08:58 96.8 F L 83 15 123/73 98 Oxymask 11/21/23 06:13 98.4 F 72 20 178/101 H 96 Room Air O2 Flow Rate 11/21/23 09:25 0 11/21/23 09:15 4 11/21/23 09:05 4 11/21/23 08:58 8 11/21/23 06:13 Pain Intensity Left Posterior Wrist: Pain Intensity: 8 Lower Back: Pain Intensity: 5 Transfer of Care Handoff Completed per policy Notes Mental Status: alert / awake / arousable and participated in evaluation Patient Amnestic to Procedure: Yes Nausea / Vomiting: adequately controlled Pain: adequately controlled Airway Patency, RR, SpO2: stable & adequate BP & HR: stable & adequate Hydration State: stable & adequate Neuraxial Anesthesia: was administered and sensory block is resolving Anesthetic Complications: no major complications apparent and Pt Satisfied with anesthetic care
[2023-11-21] MEDS ORDERED: bisacodyL 10 MG SUPP PR PRN (10:00)
[2023-11-21] MEDS ORDERED: MAGNESIUM HYDROXIDE SUSP 30 ML UDC PO PRN (10:00)
[2023-11-21] MEDS ORDERED: BENZONATATE 100 MG CAPSULE PO PRN (10:00)
[2023-11-21] MEDS ORDERED: CYCLOBENZAPRINE HCL 10 MG TAB PO PRN (10:00)
[2023-11-21] MEDS ORDERED: HYDROmorphone INJ 0.5 MG/0.5 ML SYR IV PRN (10:00)
[2023-11-21] MEDS ORDERED: VANCOMYCIN CONSULT ACTIVE PRN (10:00)
[2023-11-21] MEDS ORDERED: traZODone HCL 50 MG TAB PO PRN (10:00)
[2023-11-21] MEDS ORDERED: METOCLOPRAMIDE HCL INJ 5 MG/ML 2 ML VIAL IV PRN (10:00)
[2023-11-21] MEDS ORDERED: diphenhydrAMINE 50 MG/ML VIAL IV PRN (10:00)
[2023-11-21] MEDS ORDERED: ALBUTEROL HFA 8 GM INHALER INH PRN (10:00)
[2023-11-21] MEDS ORDERED: ALUMINUM/MAGNESIUM SUSP 30 ML UDC PO PRN (10:00)
[2023-11-21] MEDS ORDERED: NALOXONE HCL 0.4 MG/1 ML VIAL/CARP IV PRN (10:00)
[2023-11-21] MEDS: SODIUM CHLORIDE 0.9% 1,000 ML IV SCH (10:04)
[2023-11-21] MEDS ORDERED: ESZOPICLONE 1 MG TAB PO PRN (10:05)
[2023-11-21] MEDS ORDERED: MAGNESIUM OXIDE 400 MG TAB PO PRN (10:05)
[2023-11-21] MEDS: KETOROLAC TROMETHAMINE 15 MG/ML VIAL IV SCH (10:22)
[2023-11-21] MEDS: VANCOMYCIN HCL 1,750 MG in SODIUM CHLORIDE 0.9% 500 ML IV ONE (10:40)
--- NOTE | 2023-11-21 12:15 | Orthopedic Progress Note ---
Date of Service November 21, 2023 Assessment & Plan Admission and Anticipated Discharge Date Admission Date: November 21, 2023 Orthopedic Progress Note Afternoon rounds checked. Patient is sitting up talking with her family. Denies any chest pain shortness of breath fever chills nausea vomiting or headache. Vital signs are stable she is afebrile. Neurovascular check femoral sciatic nerve is intact. Wound dressing clean dry and intact. Assessment doing well x-rays look good continue to move mobilize. Hep-Lock IV continue with p.o. She is doing well. She states she does not need home services she has a lot of help at home. She is doing outpatient PT starting on Sunday. Will have her switch to Coumadin based on some of her medications that have effects on Eliquis or Pradaxa.
[2023-11-21] MEDS: ACETAMINOPHEN 500 MG TAB PO SCH (13:05)
[2023-11-21] MEDS: oxyCODONE HCL IR 5 MG TAB (IMMEDIATE RELEASE) PO PRN (13:05)
[2023-11-21] MEDS ORDERED: LOW INTENSITY WARFARIN NOMOGRAM SCH (14:00)
[2023-11-21] MEDS ORDERED: NURSING LOW INTENSITY WARFARIN NOMOGRAM SCH (14:00)
[2023-11-21] MEDS: ORTHO WARFARIN NOMOGRAM SCH (14:00)
--- NOTE | 2023-11-21 15:13 | XRay Report ---
XR pelvis 1-2V routine CLINICAL HISTORY: S/P L BONNIE TECHNIQUE: A single frontal view of the pelvis was obtained. Comparison: Comparison is made to hip and pelvis radiographs 09/28/2023 FINDINGS: There is no evidence of an acute fracture. Interval placement of a left total hip arthroplasty in add ition to the existing right hip arthroplasty. Expected postsurgical subcutaneous emphysema is seen. IMPRESSION: Expected postoperative appearance status post placement of total hip arthroplasty. ACT 112: Negative or not required by law. Electronically signed by: Levy Champion M.D. 11/21/2023 3:12 PM
[2023-11-21] MEDS: ceFAZolin 2000MG 2,000 MG/15 ML SYR IV SCH (15:44)
[2023-11-21] MEDS: WARFARIN SOD 5 MG TAB PO ONE (15:48)
[2023-11-21] MEDS: FERROUS GLUCONATE 324 MG TAB PO SCH (15:49)
[2023-11-21] MEDS: ASCORBIC ACID 500 MG TAB PO SCH (15:49)
[2023-11-21] MEDS ORDERED: WARFARIN SOD 2.5 MG TAB PO SCH (16:00)
[2023-11-21] MEDS: SENNA 8.6 MG TAB PO SCH (19:29)
[2023-11-21] MEDS: DOCUSATE SODIUM 100 MG CAP PO SCH (19:29)
--- OUTSIDE RECORDS SUMMARY | 2023-11-22 00:28 | External Medical Summary | Continuity of Care Document ---
Author Name Unknown Organization [address] Address [address] [place] [address] [phone] Care Team Providers Care [employer] Fire [employer] Man Name Role Phone Jazmín Overton Primary Care Physician [phone] [facility]counter [facility] [id number] Date(s): 10/31/23 - 10/31/[address] [facility] [address] [place] [address] [phone] Encounter Diagnosis Pre-op exam(Discharge Diagnosis) - 10/31/23 Discharge Disposition: Home or Self Care Attending Physician: DO Overton Kristen M Referring Physician: DO Overton Kristen M Allergies, Adverse Reactions, Alerts Substance Reaction Severity Status Allergy Not found in Search WHEEZING FROM PERFUMES Mod erate Active Dust Active Mold Active IVP dye throat swelling Active AKIRA Inhibitors cough Active iodine throat swelling Active Assessment and Plan Extracted from: Title:Office Visit Note Author:DO Overton Kriste n M Date:10/31/23 1.Pre-op exam -pt without acute issue -no issues with CXR -UA with some leuks poor collection but will get UC to be complete -no clotting issues, no anemia -3.6% chance for serious complication -Benefit > Risk--proceed with THR Immunizations Given and Recorded Vaccine Date Status Refusal Reason tetanus/diphtheria/pertuss, acel (Tdap) 04/26/22 G iven tetanus/diphtheria/pertuss, acel (Tdap) 09/02/08 R ecorded tetanus/diphtheria/pertuss, acel (Tdap) 1 08/10/08 Recorded influenza virus vaccine, inactivated 04/26/22 Give n influenza virus vaccine, inactivated 2 05/02/21 Gi corbin influenza virus vaccine, inactivated 04/27/20 Give n influenza virus vaccine, inactivated 05/14/19 Give n influenza virus vaccine, inactivated 04/29/18 Give n influenza virus vaccine, inactivated 04/03/16 Give n influenza virus vaccine, inactivated 05/03/15 Give n influenza virus vaccine, inactivated 05/22/13 Give n influenza virus vaccine, inactivated 05/01/12 Give n SARS-CoV-2 (COVID-19) mRNA BNT-162b2 vax 3 11/23/20 Recorded SARS-CoV-2 (COVID-19) mRNA BNT-162b2 vax 11/02/20 Recorded pneumococcal 23-valent vaccine 09/02/08 Recorded pneumococcal 23-valent vaccine 4 08/10/08 Recorded 1Result Comment: 2021-07-18: Historical information-source unspecified 2Result Comment: sb anderson rn 3Result Comment: 2021-07-18: Historical information-source unspecified 4Result Comment: 2021-07-18: Historical information-source unspecified Medications acetaminophen 500 mg oral tablet Start: 02/15/23 8:15:00 EDT, 2 tab, PO, q8h Start Date: 02/15/23 Status: Ordered Advair HFA 230 mcg-21 mcg Start: 05/22/19 10:47:25 EST, 2 puff, inhaled, bid, Disp# 1 each, Refills: 6, Pharmacy: [facility]/pharmacy #[id number] Start Date: 05/22/19 Status: Ordered albuterol 0.083% for nebulization Start: 04/29/18 9:01:00 EDT, 3 mL, inhaled, q6h, Disp# 25 each, Refills: 5, PRN: as needed for wheezing, [facility]acy: [id number] Start Date: 04/29/18 Status: Ordered albuterol CFC free 90 mcg/inh MDI Start: 06/10/19 9:19:00 EST, 2 puff, inhaled, qid, Disp# 1 each, Refills: 0, PRN: as needed for wheezing, Pharmacy: [facility]/pharmacy #[id number] Start Date: 06/10/19 Status: Ordered Ambien Start: 01/25/23 11:17:00 EDT, PRN: as needed for sleep Start Date: 01/25/23 Status: Ordered amLODIPine 5 mg oral tablet Start: 06/25/23 15:45:00 EST, See Instructions, Disp# 135 tab, Refills: 3, TAKE 1 AND 1/2 TABLETS BY MOUTH DAILY, Pharmacy: [facility]/pharmacy #[id number] Start Date: 06/25/23 Status: Ordered amoxicillin 500 mg oral capsule Start: 05/03/23 16:09:00 EDT, See Instructions, Disp# 12 cap, Refills: 3, 4 CAPSULES BY MOUTH INDICATED ONE HOUR BEFORE DENTAL AND OTHER PROCEDURES DIRECTED, Pharmacy: [facility]/pharmacy #[id number] Start Date: 05/03/23 Status: Ordered benfotiamine Start: 05/25/23 15:27:00 EST Start Date: 05/25/23 Status: Ordered Boswellia Start: 01/25/23 13:09:00 EDT, Boswellia Start Date: 01/25/23 Status: Ordered busPIRone 5 mg oral tablet See Instructions, Disp# 90 tab, Refills: 1, TAKE 1 TABLET BY MOUTH DAILY, Pharmacy: [id number] Start Date: 05/26/21 Status: Ordered celecoxib 200 mg oral capsule Start: 05/25/23 15:24:00 EST, 2 cap, PO, Daily, PRN: as needed for pain Start Date: 05/25/23 Status: Ordered cetirizine 10 mg oral tablet Start: 03/20/23 15:45:00 EDT, See Instructions, Disp# 30 tab, Refills: 11, TAKE 1 TABLET BY MOUTH EVERY DAY NEEDED FOR ALLERGY SYMPTOMS, Pharmacy: [id number] Start Date: 03/20/23 Status: Ordered Citracal + D 250 mg-500 intl units (12.5 mcg) oral tablet, chewable Start: 06/07/20 15:28:00 EST Start Date: 06/07/20 Status: Ordered furosemide 20 mg oral tablet Start: 10/19/22 16:14:00 EDT, See Instructions, Disp# 30 tab, Refills: 10, TAKE ONE TABLET BY MOUTHONCE DAILY, Pharmacy: [facility]/pharmacy #[id number] Start Date: 10/19/22 Status: Ordered gabapentin Start: 09/28/23 15:07:00 EDT, 600 mg =, PO, bid Start Date: 09/28/23 Status: Ordered Lions Vincent Start: 01/25/23 13:09:00 EDT, Lions Vincent Start Date: 01/25/23 Status: Ordered Lunesta 2 mg oral tablet Start: 12/27/22 13:36:00 EDT, 1 tab, PO, qhs, Disp# 30 tab, Refills: 1, Take holidays from medication, PRN: as needed for insomnia, [id number] Start Date: 12/27/22 Stop Date: 02/25/23 Status: Ordered magnesium aspartate Start: 12/18/19 16:45:00 EDT Start Date: 12/18/19 Status: Ordered meclizine 25 mg oral tablet Start: 07/12/23 15:07:00 EST, 1 tab, PO, tid, Disp# 30 tab, Refills: 3, PRN: as needed for dizziness, Pharmacy: [facility]/pharmacy #[id number] Start Date: 07/12/23 Status: Ordered meloxicam 15 mg oral tablet Start: 10/08/23 11:59:00 EDT, 1 tab, PO, Daily, Disp# 30 tab, Refills: 6, Pharmacy: [facility] [id number] Start Date: 10/08/23 Status: Ordered Multiple Vitamins oral tablet Start: 12/19/12 15:18:00, 1 tab, PO, Daily Start Date: 12/19/12 Status: Ordered omega-3 polyunsaturated fatty acids oral capsule Start: 01/28/14 16:02:00, 1 cap, PO, Daily Start Date: 01/28/14 Status: Ordered oxyCODONE 5 mg oral tablet Start: 10/19/23 15:50:00 EDT, See Instructions, Disp# 75 tab, Refills: 0, TAKE ONE TABLET BY MOUTH ONCE EVERY SIX HOURS NEEDED FOR PAIN, Note to Pharmacy: PDMP verified, Pharmacy: [facility]/pharmacy #[id number] Start Date: 10/19/23 Status: Ordered primidone 50 mg oral tablet Start: 05/02/23 14:30:00 EDT, 1 tab, PO, qid, Disp# 360 tab, X 90 day, Refills: 3, Stop: 04/26/24 14:30:00 EDT, [id number] Start Date: 05/02/23 Stop Date: 04/26/24 Status: Ordered Probiotic Formula Start: 10/31/23 9:58:00 EDT, 1 cap, PO, Daily Start Date: 10/31/23 Status: Ordered propranolol 160 mg oral capsule, extended release Start: 10/08/23 11:59:00 EDT, 1 cap, PO, Daily, Disp# 30 cap, Refills: 11, Pharmacy: [id number] Start Date: 10/08/23 Status: Ordered Restoril 15 mg oral capsule Start: 06/28/22 12:19:00 EST, 1 cap, PO, qhs, Disp# 30 cap, Refills: 3, PRN: as needed for sleep, [id number] Start Date: 06/28/22 Stop Date: 10/26/22 Status: Ordered Robaxin 500 mg oral tablet Start: 08/31/22 15:48:00 EST, 1 tab, PO, q8h, Disp# 90 tab, Refills: 2, [id number] Start Date: 08/31/22 Stop Date: 11/29/22 Status: Ordered Singulair 10 mg oral tablet Start: 02/28/23 16:00:00 EDT, 1 tab, PO, qPM, Disp# 90 tab, Refills: 3, [id number] Start Date: 02/28/23 Status: Ordered Soma 350 mg oral tablet Start: 10/31/23 10:47:00 EDT, 1 tab, PO, bid, Disp# 28 tab, Refills: 0, [id number] Start Date: 10/31/23 Stop Date: 11/14/23 Status: Ordered sulfaSALAzine 500 mg oral delayed release tablet Start: 10/26/23 14:13:00 EDT, 1 tab, PO, Daily Start Date: 10/26/23 Status: Ordered traZODone 100 mg oral tablet Start: 01/30/23 10:29:00 EDT, See Instructions, Disp# 180 tab, Refills: 3, 1-2 tab PO qhs, [id number] Start Date: 01/30/23 Status: Ordered turmeric Start: 01/25/23 13:08:00 EDT Start Date: 01/25/23 Status: Ordered unknown medication Start: 10/04/22 13:30:00 EDT, tarlore gotti otc Start Date: 10/04/22 Status: Ordered Valerian Start: 05/25/23 15:27:00 EST Start Date: 05/25/23 Status: Ordered Vitamin B Complex Start: 05/25/23 15:27:00 EST Start Date: 05/25/23 Status: Ordered Mental Status 10/31/23 Barriers to Learning one year None evide nt Mandatory Health Literacy Documentation Yes Health Literacy Communication Barriers N ever Primary Language Luxembourgish Problem List Condition Confirmation Course Effective Dates Status H ealth Status Informant Asthma flare Confirmed Active ANKYLOSING SPONDYLITIS Confirmed Active Antibiotic prophylaxis for dental procedure indicated due to prior joint replacement Confirmed Active Aortic aneurysm Confirmed Active ASTHMA Confirmed Active Body mass index 40+ - severely obese (finding) Confirmed Active Colon cancer screening Confirmed Active Easy bruising Confirmed Active Edema Confirmed Active Essential tremor Confirmed Active Fall Confirmed Active Fibromyalgia Confirmed Active Left hip pain Confirmed Active Hyperglycemia Confirmed Active HTN (hypertension) Confirmed Active Brain fog Confirmed Active Joint pain Confirmed Active Spondylolisthesis, lumbar region Confirmed Active Piriformis muscle pain Confirmed Active Nasal congestion Confirmed Active Primary osteoarthritis of left hip Confirmed Active Toe pain Confirmed Active Pre-op exam Confirmed Active Left sacral radiculopathy Confirmed Active Seasonal allergies Confirmed Active Sinusitis Confirmed Active Sleep disorder Confirmed 04/02/13 Active Muscle spasm Confirmed Active Lumbar paraspinal muscle spasm Confirmed Active Lumbar spinal stenosis Confirmed Active Synovial cyst of lumbar spine Confirmed Active Wheezing Confirmed Active Diagnosis Diagnosis Type Effective Dates Health Status Clini mauri Service Informant Pre-op exam Discharge Diagnosis 10/31/23 Procedures Procedure Date Related Diagnosis Body Site Status Electrodesiccation with curettage 1 10/04/22 Completed Epidural steroid injection 2 07/20/21 Completed Endometrial biopsy 06/25/[address] of head 3 03/30/20 Completed Mammogram 4 02/02/20 Completed A scan ultrasound 5 12/22/19 Compl eted R diagnostic mammogram, ultrasound 6 03/18/19 Completed Total replacement of right hip joint 02/17/[address] - Computerized tomography of right hip without contrast 01/13/16 Completed MRI of hipright lower et joint without 01/13/16 Completed Hernia repair 04/2012 Completed Colonoscopy 7 10/28/08 Completed cholecystectomy 12/06/99 Completed Colon cancer screening 8 Completed Tonsillectomy 9 Completed 1right lateral neck 2L paramedian L5-S1 3impression: no acute intracranial abnormality 4[facility] Impression: ACR BI-RADS CATEGORY 1: NEGATIVE 1. No evidence of malignancy 5impression: benign-appearing right level 2 mode that measures 0.9 x 0.5 x 0.6 cm. this node contains fatty hilum. this is at site of palpable abnormality. no enlarged lymp nodes are identified 6The lobulated and circumscribed [id number] mas in the 5:00 to 6:00 middle one third of the R breasy isthought to correlate with a benign anechoic simple cyst seen in the 530 R breast on targeted u/s. Given that this finding is newly visualized mammographically and the size measurements on ultrasound do not definitely match the mammographic measurements, a short interval follow-up R dx mammogram andpossible repeat u/s is recommended to ensure stability in 6 mo. 7Colonoscopy normal- Repeat in 10 years. 8June 2022- Cologuard negative-- repeat Cologuard in 3 years ( 2025) 9childhood Results Laboratory List Name Date Urine Culture-CAP (Urine Cx-ARLN) 4 Most recent to oldest [Reference Range]: 1 Urine Cx-[facility] See Result Comment 1 (10/31/23 4:07 PM) 1Result Comment: CULTURE, URINE, ROUTINE Micro Number: [id number] Test Status: Final Specimen Source: Not given Specimen Quality: Adequate Result: Mixed genital vianey isolated. These superficial bacteria are not indicative of a urinary tract infection. No further organism identification is warranted on this specimen. If clinically indicated, recollect clean-catch, mid-stream urine and transfer immediately to Urine Culture Transport Tube. Specimen Received d/t: 10/31/2023 22:24:00 Lab test performed by: [facility] [employer] [address] [place] [address] Romel Guzmán MD Vital Signs Most recent to oldest [Reference Range]: 1 Temperature [36.5-37.9 DegC] 36.4 DegC *LOW* (10/31/23 10:01 AM) Blood Pressure 115/80mmHg (10/31/23 10:01 AM) Cuff Pulse Pressure 35 mmHg (10/31/23 10:01 AM) Social History Social History Type Response Smoking Status Never smoked cigaret paramjit Sex Female Implantable Device List Procedure Provider Procedure Date Device Type Site Unknown Unknown 02/14/23 Unknown Unknown Device Identifier Serial Number Lot or Batch Number Manufacturing Date Expiration Date Distinct Identification Code MRI Safety Implantable Status Assigning Authority Unknown Unknown [id number] AAF Unknown 11/06/24 Unknown Unknown Active Unknown Unknown Unknown N/A Unknown 07/15/25 Unknown Unknown Active Unkno wn Unknown Unknown N/A Unknown Unknown Unknown Unknown Active Unkn own Unknown Unknown N/A Unknown Unknown Unknown Unknown Active Unkn own Unknown Unknown N/A Unknown Unknown Unknown Unknown Active Unkn own Unknown Unknown N/A Unknown Unknown Unknown Unknown Active Unkn own Unknown Unknown N/A Unknown Unknown Unknown Unknown Active Unkn own FCM Outpt Note * DO Overton Kristen M: PERFORM Event Display: FCM Outpt Note Authored Date: [id number] Chief Complaint Pt here for preop clearance for left hip arthoplasty History of Present Illness Pt presents for preop clearance for her left hip with Dr. Bishop. She states the pain has been debilitating. Pt states she is in her normal state of health. No issues with chest pain, SOB, or changein bowel or bladder. Review of Systems Review of Systems: Consitutional: No weight loss of significance, no weight gain of significance. Denies fever, insomnia, frequent headaches or fatigue. Eyes: Denies visual change, diplopia, blurred vision, redness, dry eyes, allergic eye irritation Ears: Denies hearing acuity decrease. Denies exposure to loud sounds. Denies tinnitus. Deneisdischarge. Nose: Denies allergies, rhinitis, postnasal drip, nasal polyps, sinus disease or nasal congestion. Denies nosebleeds. Mouth: Denies sore throat, bleeding, non-healing sores, tongue dysfunction or salivary gland dysfunction. Respiratory: Denies history of asthma, wheezing, shortness of breath, persistent cough or mucous production. Cardiovascular: Denies elevated blood pressure, arrhythmia, palpitations, chest pain or shortnessof breath. Gastrointestinal: Denies nausea, heartburn, vomiting, hematemesis, constipation, diarrhea, mucousproduction, melena, hematochezia or abdominal pain. Musculoskeletal: Denies muscular pain Denies muscle spasm, twitching, weakness or palpitations. Integumentary: Denies history of skin cancer. Denies excessive sun exposure. Denies no new moles or skin changes. Lymphatic: Denies new swelling of joints or lymph nodes. Endocrine: Denies thyroid difficulties or neck enlargement. Neurological: Denies paralysis, muscular weakness, dysaesthesia, gait troubles. Psychiatric: Denies mood swings, depressive symptoms, suicidal ideation. Physical Exam Vitals & Measurements T:36.4C BP:115/80 SpO2:97% PHQ2 Data(Data Documented on:10/31/2023 09:59) Emotional health assessment NEGATIVE Images CXR, EKG, Labs Assessment/Plan 1.Pre-op exam -pt without acute issue -no issues with CXR -UA with some leuks poor collection but will get UC to be complete -no clotting issues, no anemia -3.6% chance for serious complication -Benefit > Risk--proceed with THR Attestation I spent4 mintime in previsit planning including prepping note and chart review . I spent23 time in face to face interaction with patient concerning the issues that brought them in today. I spent4 min time in post visit planning including finishing note and depart process Total time spent today on patient visit31 min Problem List/Past Medical History Ongoing ANKYLOSING SPONDYLITIS Antibiotic prophylaxis for dental procedure indicated due to prior joint replacement Aortic aneurysm ASTHMA Asthma flare Body mass index 40+ - severely obese (finding) Brain fog Colon cancer screening Easy bruising Edema Essential tremor Fall Fibromyalgia HTN (hypertension) Hyperglycemia Joint pain Left hip pain Left sacral radiculopathy Lumbar paraspinal muscle spasm Lumbar spinal stenosis Muscle spasm Nasal congestion Piriformis muscle pain Primary osteoarthritis of left hip Seasonal allergies Sinusitis Sleep disorder Spondylolisthesis, lumbar region Synovial cyst of lumbar spine Toe pain Wheezing Historical Active DVT Acute infection of sinus Bakers cyst BPPV (benign paroxysmal positional vertigo) Bronchitis CHOLECYSTITIS Chronic pain Claustrophobia Foot pain, left Hernia, umbilical Hip pain, right History of hernia repair Iliotibial band friction syndrome Left leg DVT Low back ache MIGRAINE Obesity Osteoarthritis of hip Pain in right sheets Pain, dental Phlebitis Prediabetes Preoperative clearance Right calf pain Right knee DJD Right knee pain S/P total hip arthroplasty Situational stress Skin lesion Sleep initiation disorder Trochanteric bursitis of right hip Vertigo Vitamin D deficiency Vitamin D deficiency Weight disorder Procedure/Surgical History Electrodesiccation with curettage| Service Date: 10/04/2022Epidural steroid injection| Service Date: 07/20/2021Endometrial biopsy| Service Date: 06/25/2020CT of head| Service Date: 03/30/2020Mammogram| Service Date: 02/02/2020A scan ultrasound| Service Date: 12/22/2019R diagnostic mammogram, ultrasound| Service Date: 03/18/2019Total replacement of right hip joint| Service Date: 02/17/2016MRI of hipright lower et joint without| Service Date: 01/13/2016CT - Computerized tomography of right hip without contrast| Service Date: 01/13/2016Hernia repair| Service Date: 04/2012Colonoscopy| Service Date: 10/28/2008cholecystectomy| Service Date: 12/06/1999TonsillectomyColon cancer screening Medications acetaminophen(acetaminophen 500 mg oral tablet), 1000 mg= 2 tab, PO, q8h albuterol(albuterol CFC free 90 mcg/inh MDI), 2 puff, inhaled, qid, PRN albuterol(albuterol 0.083% for nebulization), 2.5 mg= 3 mL, inhaled, q6h, PRN, 5 refills amLODIPine(amLODIPine 5 mg oral tablet), See Instructions, 3 refills amoxicillin(amoxicillin 500 mg oral capsule), See Instructions, 3 refills benfotiamine bifidobacterium-lactobacillus(Probiotic Formula), 1 cap, PO, Daily busPIRone(busPIRone 5 mg oral tablet), See Instructions calcium-vitamin D(Citracal + D 250 mg-500 intl units (12.5 mcg) oral tablet, chewable) carisoprodol(Soma 350 mg oral tablet), 350 mg= 1 tab, PO, bid celecoxib(celecoxib 200 mg oral capsule), 400 mg= 2 cap, PO, Daily, PRN cetirizine(cetirizine 10 mg oral tablet), See Instructions cyclobenzaprine(Flexeril 10 mg oral tablet), 10 mg= 1 tab, PO, tid, PRN, 1 refills eszopiclone(Lunesta 2 mg oral tablet), 2 mg= 1 tab, PO, qhs, PRN, 1 refills fluticasone-salmeterol(Advair HFA 230 mcg-21 mcg), 2 puff, inhaled, bid, 6 refills furosemide(furosemide 20 mg oral tablet), See Instructions, 10 refills gabapentin, 600 mg, PO, bid magnesium aspartate meclizine(meclizine 25 mg oral tablet), 25 mg= 1 tab, PO, tid, PRN, 3 refills meloxicam(meloxicam 15 mg oral tablet), 1 tab, PO, Daily methocarbamol(Robaxin 500 mg oral tablet), 500 mg= 1 tab, PO, q8h, 2 refills montelukast(Singulair 10 mg oral tablet), 10 mg= 1 tab, PO, qPM, 3 refills multivitamin(Multiple Vitamins oral tablet), 1 tab, PO, Daily multivitamin(Vitamin B Complex) omega-3 polyunsaturated fatty acids(omega-3 polyunsaturated fatty acids oral capsule), 1 cap, PO, Daily oxyCODONE(oxyCODONE 5 mg oral tablet), See Instructions primidone(primidone 50 mg oral tablet), 50 mg= 1 tab, PO, qid, 3 refills propranolol(propranolol 160 mg oral capsule, extended release), 1 cap, PO, Daily sulfaSALAzine(sulfaSALAzine 500 mg oral delayed release tablet), 500 mg= 1 tab, PO, Daily temazepam(Restoril 15 mg oral capsule), 15 mg= 1 cap, PO, qhs, PRN, 3 refills traZODone(traZODone 100 mg oral tablet), See Instructions, 3 refills turmeric unknown medication unlisted medication(Boswellia) unlisted medication(Lions Vincent) valerian(Valerian) zolpidem(Ambien), PRN Allergies Allergy Not found in Search (Moderate)WHEEZING FROM PERFUMES AKIRA Inhibitorscough Dust IVP dyethroat swelling Mold iodinethroat swelling Social History Smoking Status Never smoked cigarettes Family History Cancer: Unknown. Diabetes: Father. Heart disease: Unknown. High Blood Pressure: Mother. Rheumatoid Arthritis: Mother. Stroke: Mother and Father. Health Status Family Member(s) Family Member(s) Relationship: Father, Age: 62 Years, Cause: stroke Relationship: Brother, Age: 25 Years, Cause: [place] but born with heart "problem" Immunizations Vaccine Date Status tetanus/diphtheria/pertuss, acel (Tdap) 04/26/2022 Given influenza virus vaccine, inactivated 04/26/2022 Given influenza virus vaccine, inactivated 05/02/2021 Given Comments : sb anderson rn SARS-CoV-2 (COVID-19) mRNA BNT-162b2 vax 11/23/2020 Recorded Comments : 2021-07-18: Historical information-source unspecified SARS-CoV-2 (COVID-19) mRNA BNT-162b2 vax 11/02/2020 Recorded influenza virus vaccine, inactivated 04/27/2020 Given influenza virus vaccine, inactivated 05/14/2019 Given influenza virus vaccine, inactivated 04/29/2018 Given influenza virus vaccine, inactivated 04/03/2016 Given influenza virus vaccine, inactivated 05/03/2015 Given influenza virus vaccine, inactivated 05/22/2013 Given influenza virus vaccine, inactivated 05/01/2012 Given pneumococcal 23-valent vaccine 09/02/2008 Recorded tetanus/diphtheria/pertuss, acel (Tdap) 09/02/2008 Recorded tetanus/diphtheria/pertuss, acel (Tdap) 08/10/2008 Recorded Comments : 2021-07-18: Historical information-source unspecified pneumococcal 23-valent vaccine 08/10/2008 Recorded Comments : 2021-07-18: Historical information-source unspecified Recommendations Health Maintenance Pending(in the next year) OverDue Adult Influenza Vaccine due01/05/23and every 1year Due Adult COVID-19 Vaccination due10/31/23Unknown Frequency Adult Social Determinants of Health Screening due10/31/23Unknown Frequency Falls Plan of Care due10/31/23Unknown Frequency Hepatitis C Screening due10/31/23One-time only Osteoporosis Screening due10/31/23One-time only Pneumococcal Vaccine Older Adults due10/31/23One-time only Shingles Vaccine due10/31/23One-time only Due In Future Body Mass Index not due until10/26/24and every 366day Satisfied(in the past 1 year) Satisfied Body Mass Index on10/26/23.Satisfied by KELSEY Hansen Cassidy Breast Cancer Screening on08/30/23.Satisfied by SAMPSON Curtis Angela Colorectal Cancer Screening on12/08/22.Satisfied by SAMPSON Bunch Jessica Electronic Signature on File CC: Emmanuel Malik MD [address] [facility] [address] [place] [id number] Electronically Reviewed/Signed by: Jazmín Overton DO Author Signature Dt/Tm:10/31/2023 10:42 AM Department of Family Medicine [facility] Patient Care team information Care Team Personnel Name: DAREK Chinchilla Tara Position: Nurse Pract - Family Med Member Role: Lifetime Relationship Address: Address: [address] [facility] [place] [address] Name: DO Diego Franklin J Position: Physician - Family Med Member Role: Lifetime Relationship Address: Address: [address] [facility] [address] [place] [address] Name: DO Overton Kristen M Position: Physician - Family Med Member Role: Lifetime Relationship Address: Address: [address] [place] [address] [place] [address] Name: Chele Young Ashley Position: Pharmacist Schedule II Member Role: Pharmacy - [facility] Name: DAREK Evans Lorella G Position: Referring DIRECT Member Role: Lifetime - never expires Address: Address: [address] [place] [id number] Care Team Related Persons Name: POLLY ROCA Address: [place] Address: home [address] [facility] [place] [phone] Name: LOBO ROCA Address: home [address] [facility] [place] [phone] Name: SAADIA ROCA Address: [place] Address: home [address] [facility] [place] [phone] Name: JOHN TARANGO Address: [place]KNOWN [address]PLACE Address: [facility]
--- OUTSIDE RECORDS SUMMARY | 2023-11-22 00:28 | External Medical Summary | Continuity of Care Document ---
Author Name Unknown Organization [facility] [id number] Address [address] [place] [phone] Care Team Providers Care Peer Support Specialist Name Role Phone Jazmín Overton Primary Care Physician [phone] [id number] Date(s): 10/26/23 - 10/26/23 [facility] [address] [facility] [address] [facility] [address] [place], [place] [id number] Encounter Diagnosis Primary osteoarthritis of left hip(Discharge Diagnosis) - 10/26/23 Discharge Disposition: Home or Self Care Attending Physician: DANYA Oneill, Janet Ramsey Referring Physician: MD Helena, Emmanuel Velasquez Allergies, Adverse Reactions, Alerts Substance Reaction Severity Status Dust Active Mold Active IVP dye throat swelling Active AKIRA Inhibitors cough Active iodine throat swelling Active Allergy Not found in Search WHEEZING FROM PERFUMES Mod erate Active Immunizations Given and Recorded Vaccine Date Status [...] bid, Disp# 1 each, Refills: 6, Pharmacy: [facility]/pharmacy #[id number] Start Date: 05/22/19 Status: Ordered albuterol 0.083% for nebulization Start: 04/29/18 9:01:00 EDT, 3 mL, inhaled, q6h, Disp# 25 each, Refills: 5, PRN: as needed for wheezing, Pharmacy: [facility]/pharmacy #1918 Start Date: 04/29/18 Status: Ordered albuterol CFC free 90 mcg/inh MDI Start: 06/10/19 9:19:00 EST, 2 puff, inhaled, qid, Disp# 1 each, Refills: 0, PRN: as needed for wheezing, Pharmacy: [facility]/pharmacy #[id number] Start Date: 06/10/19 Status: Ordered Ambien Start: 01/25/23 11:17:00 EDT, PRN: as needed for sleep Start Date: 01/25/23 Status: Ordered amLODIPine 5 mg oral tablet Start: 06/25/23 15:45:00 EST, See Instructions, Disp# 135 tab, Refills: 3, TAKE 1 AND 1/2 TABLETS BY MOUTH DAILY, Pharmacy: [facility]/pharmacy #1918 Start Date: 06/25/23 Status: Ordered amoxicillin 500 mg oral capsule Start: 05/03/23 16:09:00 EDT, See Instructions, Disp# 12 cap, Refills: 3, 4 CAPSULES BY MOUTH INDICATED ONE HOUR BEFORE DENTAL AND OTHER PROCEDURES DIRECTED, Pharmacy: [facility]/pharmacy #[id number] Start Date: 05/03/23 Status: Ordered benfotiamine Start: 05/25/23 15:27:00 EST Start Date: 05/25/23 Status: Ordered Boswellia Start: 01/25/23 13:09:00 EDT, Boswellia Start Date: 01/25/23 Status: Ordered busPIRone 5 mg oral tablet See Instructions, Disp# 90 tab, Refills: 1, TAKE 1 TABLET BY MOUTH DAILY, Pharmacy: [id number] Start Date: 05/26/21 Status: Ordered celecoxib 200 mg oral capsule Start: 05/25/23 15:24:00 EST, 2 cap, PO, Daily, PRN: as needed for pain Start Date: 05/25/23 Status: Ordered cetirizine 10 mg oral tablet Start: 03/20/23 15:45:00 EDT, See Instructions, Disp# 30 tab, Refills: 11, TAKE 1 TABLET BY MOUTH EVERY DAY NEEDED FOR ALLERGY SYMPTOMS, Pharmacy: [id number] Start Date: 03/20/23 Status: Ordered Citracal + D 250 mg-500 intl units (12.5 mcg) oral tablet, chewable Start: 06/07/20 15:28:00 EST Start Date: 06/07/20 Status: Ordered Flexeril 10 mg oral tablet Start: 07/05/23 13:15:00 EST, 1 tab, PO, tid, Disp# 90 tab, Refills: 1, PRN: as needed for spasm, Pharmacy: [facility]/pharmacy #[id number] Start Date: 07/05/23 Status: Ordered furosemide 20 mg oral tablet Start: 10/19/22 16:14:00 EDT, See Instructions, Disp# 30 tab, Refills: 10, TAKE ONE TABLET BY MOUTHONCE DAILY, Pharmacy: [facility]/pharmacy #[id number] Start Date: 10/19/22 Status: Ordered gabapentin Start: 09/28/23 15:07:00 EDT, 600 mg =, PO, bid Start Date: 09/28/23 Status: Ordered Lions Vincent Start: 01/25/23 13:09:00 EDT, Lions Vincent Start Date: 01/25/23 Status: Ordered Lunesta 2 mg oral tablet Start: 12/27/22 13:36:00 EDT, 1 tab, PO, qhs, Disp# 30 tab, Refills: 1, Take holidays from medication, PRN: as needed for insomnia, [id number] Start Date: 12/27/22 Stop Date: 02/25/23 Status: Ordered magnesium aspartate Start: 12/18/19 16:45:00 EDT Start Date: 12/18/19 Status: Ordered meclizine 25 mg oral tablet Start: 07/12/23 15:07:00 EST, 1 tab, PO, tid, Disp# 30 tab, Refills: 3, PRN: as needed for dizziness, Pharmacy: [facility]/pharmacy #[id number] Start Date: 07/12/23 Status: Ordered meloxicam 15 mg oral tablet Start: 10/08/23 11:59:00 EDT, 1 tab, PO, Daily, Disp# 30 tab, Refills: 6, Pharmacy: [facility] [id number] Start Date: 10/08/23 Status: Ordered Milk Thistle Start: 01/25/23 13:09:00 EDT Start Date: 01/25/23 Status: Ordered Multiple Vitamins oral tablet Start: [...] PAIN, Note to Pharmacy: PDMP verified, Pharmacy: [facility]/pharmacy #[id number] Start Date: 10/19/23 Status: Ordered primidone 50 mg oral tablet Start: 05/02/23 14:30:00 EDT, 1 tab, PO, qid, Disp# 360 tab, X 90 day, Refills: 3, Stop: 04/26/24 14:30:00 EDT, Pharmacy: [facility]/pharmacy #[id number] Start Date: 05/02/23 Stop Date: 04/26/24 Status: Ordered propranolol 160 mg oral capsule, extended release Start: 10/08/23 11:59:00 EDT, 1 cap, PO, Daily, Disp# 30 cap, Refills: 11, Pharmacy: [id number] Start Date: 10/08/23 Status: Ordered Restoril 15 mg oral capsule Start: 06/28/22 12:19:00 EST, 1 cap, PO, qhs, Disp# 30 cap, Refills: 3, PRN: as needed for sleep, [id number] Start Date: 06/28/22 Stop Date: 10/26/22 Status: Ordered Robaxin 500 mg oral tablet Start: 08/31/22 15:48:00 EST, 1 tab, PO, q8h, Disp# 90 tab, Refills: 2, [id number] Start Date: 08/31/22 Stop Date: 11/29/22 Status: Ordered Singulair 10 mg oral tablet Start: 02/28/23 16:00:00 EDT, 1 tab, PO, qPM, Disp# 90 tab, Refills: 3, [id number] Start Date: 02/28/23 Status: Ordered Soma 350 mg oral tablet Start: 10/11/23 15:21:00 EDT, 1 tab, PO, bid, Disp# 28 tab, Refills: 0, [id number] Start Date: 10/11/23 Stop Date: 10/25/23 Status: Ordered sulfaSALAzine 500 mg oral delayed release tablet Start: 10/26/23 14:13:00 EDT, 1 tab, PO, Daily Start Date: 10/26/23 Status: Ordered traZODone 100 mg oral tablet Start: 01/30/23 10:29:00 EDT, See Instructions, Disp# 180 tab, Refills: 3, 1-2 tab PO qhs, [id number] Start Date: 01/30/23 Status: Ordered turmeric Start: 01/25/23 13:08:00 EDT Start Date: 01/25/23 Status: Ordered unknown medication Start: 10/04/22 13:30:00 EDT, tart gotti otc Start Date: 10/04/22 Status: Ordered Valerian Start: 05/25/23 15:27:00 EST Start Date: 05/25/23 Status: Ordered Vitamin B Complex Start: 05/25/23 15:27:00 EST Start Date: 05/25/23 Status: Ordered Mental Status 10/26/23 Barriers to Learning one year None evide nt Mandatory Health Literacy Documentation Yes Health Literacy Communication Barriers N ever Primary Language Albanian Problem List Condition Confirmation Course Effective Dates [...] hip Confirmed Active Toe pain Confirmed Active Left sacral radiculopathy Confirmed Active Seasonal allergies Confirmed Active Sinusitis Confirmed Active Sleep disorder Confirmed 04/02/13 Active Muscle spasm Confirmed Active Lumbar paraspinal muscle spasm Confirmed Active Lumbar spinal stenosis Confirmed Active Synovial cyst of lumbar spine Confirmed Active Wheezing Confirmed Active Diagnosis Diagnosis Type Effective Dates Health Status Clinical Service Informant Primary osteoarthritis of left hip Discharge Diagnosis 10/26/23 Procedures Procedure Date Related Diagnosis Body Site [...] L5-S1 3impression: no acute intracranial abnormality 4[facility] Impression: ACR BI-RADS CATEGORY 1: NEGATIVE 1. No evidence of malignancy 5impression: benign-appearing right level 2 mode that measures 0.9 x 0.5 x 0.6 cm. this node contains fatty hilum. this is at site of palpable abnormality. no enlarged lymp nodes are identified 6The lobulated and circumscribed [id number] mas in the 5:00 to 6:00 middle [...] Cologuard in 3 years ( 2025) 9childhood Vital Signs Most recent to oldest [Reference Range]: 1 Height 162 cm (10/26/23 2:14 PM) Patient Weight 115.2 kg (10/26/23 2:14 PM) Body Mass Index 43.9 kg/m2 (10/26/23 2:14 PM) Temperature [36.5-37.9 DegC] 36.3 DegC *LOW* (10/26/23 2:14 PM) Heart Rate 92 bpm (10/26/23 2:14 PM) Blood Pressure 158/94mmHg (10/26/23 2:14 PM) Social History Social History Type Response Smoking Status Never smoked cigaret paramjit Sex Female Implantable Device List Procedure Provider Procedure Date Device Type Site Unknown Unknown 02/14/23 Unknown Unknown Device Identifier Serial Number Lot or Batch Number Manufacturing Date Expiration Date Distinct Identification Code MRI Safety Implantable Status Assigning Authority Unknown Unknown [id number] AAF Unknown 11/06/24 Unknown Unknown Active Unknown [...] Unknown Unknown Unknown Unknown Active Unkn own History and physical note * DANYA Oneill, Janet Ramsey: PERFORM Event Display: .HP Authored Date: [id number] Primary Care Provider DO Overton Kristen M Referring Provider MD Malik Wayne J Chief Complaint pre-op left BONNIE History of Present Illness Patient is a 63-year-old female who is a known patient Dr. Malik. Sheis here today for her preoperative history and physical examination for left total hip arthroplasty with Dr. Malik on 11/21/2023. She explains that she has had hip pain ongoing ever since she had her right total hip replaced with Dr. Malik in 2016. She states the right hip is doing well however theleft hip has progressively gotten worse over the past 8 years. She states she has been having pain in the groin and the posterior hip as well as the thigh. She states this seems to be present with weightbearing activities and after she sits for period of time to get up. She complains of painand stiffness with getting out of a chair after been sitting for period of time. She also notes that she hasdifficulty getting in and out of the vehicle as well as her bed because of weakness in herleg. She states sheoften has to lift the leg upto get into the vehicle. She has triedm odifying her activities without any relief. She has been using a walker as well as a cane onoccasionswithout lasting relief. She states she has previously tried therapy as well as a steroid injection that did not provide her lasting relief. She has had imaging of the hip that [id number] with flattening of the femoral head, sclerosis and osteophytes of the left hip. Despitea lengthy course of conservative measures she continues to have persistent systems that arelimiting her ability to do functional activities. Due to these reasonings she will be taken to the OR for a left total hip arthroplasty. She does have a history of having a DVT perpatient and daughterthis was in the right lower extremity approximately 10 years ago. She states she was treating with anticoagulation and has been off this for years. She denies any other episodes of this. She does have a history of having a lumbar fusion with Dr. Barahona in February 2023. She has a history of an enlarged heart and does follow cardiology. She denies any stentsor history ofMIs. She has a history of sleep apnea denies any use of his CPAP. She does have a history of a mini stroke in 2003she has a history of hypertension and cholesterol elevated. She does note that she hasmultiple occasions woken up during surgeryotherwise no issues with anesthesia. She denies any skin infec tions latex allergy. . She does have a history of iodine allergy and it causes her throat to swell. Review of Systems REVIEW OF SYSTEMS: Constitutional: Denies fevers, chills, night sweats,unexpected weight gain or weight loss Eyes Denies any loss of vision or blurred vision, drainage or discharge ENT:Denies any loss of hearing, ear pain, nasal congestion or nasaldrainage, sore throat Cardiac: Reports history of enlarged heart. Denies chest pain, palpitations,slow heart rate, fast heart ratedizziness Pulmonary: Denies any coughing, shortness of breath, wheezing Gastrointestinal: Denies any stomach pain, diarrhea, vomiting, blood in stool Genitourinary: Denies any blood urine burning when urinating, frequency, infections or kidney stones Musculoskeletal: Refer to HPI Integumentary: Denies any rash, dry skin or skin sores orwounds Neurologic: Denies any confusion, paresthesia, headaches Psychiatric: Denies any anxiety, depression or thoughts of self harm or anyone else. Physical Exam Vitals & Measurements T:36.3C HR:92(Monitored) BP:158/94 SpO2:97% HT:162cm WT:115.2kg WT:115.200kg(Dosing) BMI:43.9 General:Pt is alert and oriented x3.No acute distress. Well-dressed, well-nourished . HEENT: Head: Atraumatic, normocephalic. Eyes: Extraocular movements intact. Pupils equal, round, and reactive to light. Sclerae are normal. Ears: Hearing is grossly normal. Nose: Nares are patent bilaterally. Throat: Oropharynx clear. Mucous membranes moist. Poordentition. Uvula midline.Neg for erythema Neck: Supple. No lymphadenopathy. Nontender to palpation. Full range of motion. Lungs: Clear to auscultation bilaterally. No adventitious sounds. No accessory muscle use. Heart: Regular rate and rhythm. Normal S1, S2. No murmurs, rubs, or gallops appreciated. Abdomen: Soft, nontender, nondistended. Normal bowel sounds heard in all 4 quadrants. Musculoskeletal:Left leg is shorter than the right. She has a flexion contracture and unable tofully extend knee. She islimited with hip internal and external rotation on the left when compared to the right. She has a positive Rocker sign. Negative straight leg raise sign. She is able to flex the knee to approximately 90 degrees. Her strength is4+/5right lower extremity 4/5 of the left lower extremity. She is able to fully dorsiflex and plantarflex ankles. Gait is antalgic with walker. Integumentary:normal in color neg for abrasion or rash Neuro: Cranial nerves II-XII grossly intact Psychiatric:Good eye contact, normal mood and affect, cooperative during exam, nonsuicidal Diagnostic Results [id number] with flattening of the femoral head sclerosisand osteophytesleft hip Assessment/Plan 1.Primary osteoarthritis of left hip The patient is scheduled fora left total hip arthroplasty with Dr. Malik on 11/21/2023. Patient will be admitted ti [facility] for observation and most likely will be discharged if medically stable by 11 am the next day. Risks and complications of the procedure were explained to the patient and include, but are not limited to, infection, pain, bleeding, scarring, nerve and blood vessel damage, wound problems, weakness, stiffness, incomplete relief of symptoms, hardware failure, fracture, malunion, nonunion, tendon, ligament injury, blood clots, embolisms, heart attack, stroke, and . All questions were answered and informed consent was obtained.She is seen anesthesiatoday and will have preoperative laboratory work and an EKGat that visit. She we have requestedcardiacand medical clearance prior to surgery. She is aware of the COVID-19 risks, she is currently asymptomatic for any COVID-19 symptoms. We discussed postoperative pain control. We discussed risks and benefits treating with a narcotic. We discussed risks of addiction, overdose, etc. We discussed other measures to control pain including OTC analgesics, ice, exercise and distractions.[facility]. We reviewed [facility] surgical handbook and this was given to the patient today. They were instructed on use of the G cloths and they will be provided by preanesthesia clinic.Patient is aware to contact the surgical center/hospital for time to arrive for surgery. They were provided date, telephone number, and time to contact. They are aware to be NPO on11/20/2023. Postoperative course was discussed. She will be prescribed Eliquistwice a day for 30 days postoperatively for DVT prophylaxis. She also will have a wound VAC/Adelina applicationto the incision prior to being discharged. Upon discharge patient will have home services for a period of time and will be transitioned to outpatient therapy when appropriate. Patient was advised need of prophylacticantibiotics prior to all dental procedures including cleanings. Instructed to contact our office prior to procedure and we will prescribe the antibiotic. Patient is scheduled for postoperative appointment on 12/06/2023.All questions were answered.They know to call with any further problems, questions, or concerns. Problem List/Past Medical History Ongoing ANKYLOSING SPONDYLITIS [...] oral capsule), See Instructions, 3 refills benfotiamine busPIRone(busPIRone 5 mg oral tablet), See Instructions [...] mg= 1 tab, PO, q8h, 2 refills milk thistle(Milk Thistle) montelukast(Singulair 10 mg oral tablet), 10 mg= [...] stroke Relationship: Brother, Age: 25 Years, Cause: [place] but born with heart "problem" Immunizations Vaccine [...] due01/05/23and every 1year Due Adult COVID-19 Vaccination due10/26/23Unknown Frequency Adult Social Determinants of Health Screening due10/26/23Unknown Frequency Falls Plan of Care due10/26/23Unknown Frequency Hepatitis C Screening due10/26/23One-time only Osteoporosis Screening due10/26/23One-time only Pneumococcal Vaccine Older Adults due10/26/23One-time only Shingles Vaccine due10/26/23One-time only Satisfied(in the past 1 year) Satisfied Body Mass Index on10/26/23.Satisfied by KELSEY Hansen Cassidy Breast Cancer Screening on08/30/23.Satisfied by SAMPSON Curtis Angela Colorectal Cancer Screening on12/08/22.Satisfied by SAMPSON Bunch Jessica Electronic Signature on File Electronically Reviewed/Signed by: Janet Oneill PA-C Author Signature Dt/Tm:10/26/2023 04:17PM Division of Sports Medicine Electronically Reviewed/Signed by: MD Rex Arellanoignjo ann Signature Dt/Tm: 10/26/2023 04:48 PM Psychologist Clinical for Clinical Affairs, [facility] Jackie Professor in Orthopaedics Quality Control Tester, [facility] Sports [facility] Patient Care team information Care Team Personnel Name: DAREK Chinchilla Tara Position: Nurse Pract - Family Med Member Role: Lifetime Relationship Address: Address: [address] [facility] [address] Name: DO Diego Franklin J Position: Physician - Family Med Member Role: Lifetime Relationship Address: Address: [address] [facility] [address] [place] [address] Name: DO Overton Kristen M Position: Physician - Family Med Member Role: Lifetime Relationship Address: Address: [address] [facility] [address] [place] [address] Name: Chele Young Ashley Position: Pharmacist Schedule II Member Role: Pharmacy - [facility] Name: DAREK Evans Lorella G Position: Referring DIRECT Member Role: Lifetime - never expires Address: Address: [address] [place] [address] Care Team Related Persons Name: POLLY ROCA Address: [place] Address: home [address] [place], [place] [phone] Name: LOBO ROCA Address: home [address] [place], [place] [phone] Name: SAADIA ROCA Address: [place] Address: home [address] [place], [place] [phone] Name: JOHN TARANGO Address: [place] Address: [facility]
--- OUTSIDE RECORDS SUMMARY | 2023-11-22 00:28 | External Medical Summary | Continuity of Care Document ---
Author Name Unknown Organization [facility] Address [address] [place] [phone] Care Team Providers Care Information Delivery Analyst Name Role Phone Jazmín Overton Primary Care Physician [phone] [id number] Date(s): 11/05/23 - 11/05/[address] [facility] [address], [address] [place] [address] [phone] Encounter Diagnosis Aortic aneurysm(Discharge Diagnosis) - 11/05/23 HLD (hyperlipidemia)(Discharge Diagnosis) - 11/05/23 HTN (hypertension)(Discharge Diagnosis) - 11/05/23 Preop examination(Discharge Diagnosis) - 11/05/23 Discharge Disposition: Home or Self Care Attending Physician: DO Powell Jason D Allergies, Adverse Reactions, Alerts Substance Reaction Severity Status Allergy Not found in Search WHEEZING FROM PERFUMES Mod erate Active iodine throat swelling Active Dust Active Mold Active IVP dye throat swelling Active AKIRA Inhibitors cough Active Assessment and Plan Extracted from: Title:Cardiology Office Visit Note Author:DAREK Pond rd, Sarah A Date:11/05/23 Impression: 1. Palpitations possibly related to anxiety and panic attacks. 2. Hypertension with some degree of noncompliance. 3. Dilated ascending aorta at 4.5 cm 4. Normal biventricular size and function. 5. Spinal stenosis. 6. Anxiety and depression. 7. Asthma. Ms. Roca is stable. She can accomplish 4 METSand ascend a flight of stairs without sob or chest pain. She has some LE edema, but her weight is stable and no signs of CHF on her CXR at [facility] for her preop visit. She is a moderate risk for cardiovascular complication perioperatively. She does not need further cardiac workup prior to her surgery. Her EKG at [facility] was stable. Her echo was reviewed and her aorta is stable. Her bp is stable. Kidney function at [facility] was stable. She will return to the clinic in 6 months. Immunizations Given and Recorded Vaccine Date Status [...] bid, Disp# 1 each, Refills: 6, Pharmacy: [facility]/pharmacy #[id number] Start Date: 05/22/19 Status: Ordered albuterol 0.083% for nebulization Start: 04/29/18 9:01:00 EDT, 3 mL, inhaled, q6h, Disp# 25 each, Refills: 5, PRN: as needed for wheezing, Pharmacy: [facility]/pharmacy #[id number] Start Date: 04/29/18 Status: Ordered albuterol CFC free 90 mcg/inh MDI Start: 06/10/19 9:19:00 EST, 2 puff, inhaled, qid, Disp# 1 each, Refills: 0, PRN: as needed for wheezing, Pharmacy: [facility]/pharmacy #[id number] Start Date: 06/10/19 Status: Ordered Ambien Start: 01/25/23 11:17:00 EDT, PRN: as needed for sleep Start Date: 01/25/23 Status: Ordered amLODIPine 5 mg oral tablet Start: 06/25/23 15:45:00 EST, See Instructions, Disp# 135 tab, Refills: 3, TAKE 1 AND 1/2 TABLETS BY MOUTH DAILY, Pharmacy: [facility] #[id number] Start Date: 06/25/23 Status: Ordered amoxicillin 500 mg oral capsule Start: 05/03/23 16:09:00 EDT, See Instructions, Disp# 12 cap, Refills: 3, 4 CAPSULES BY MOUTH INDICATED ONE HOUR BEFORE DENTAL AND OTHER PROCEDURES DIRECTED, Pharmacy: [facility] #[id number] Start Date: 05/03/23 Status: Ordered benfotiamine Start: 05/25/23 15:27:00 EST Start Date: 05/25/23 Status: Ordered Boswellia Start: 01/25/23 13:09:00 EDT, Boswellia Start Date: 01/25/23 Status: Ordered busPIRone 5 mg oral tablet See Instructions, Disp# 90 tab, Refills: 1, TAKE 1 TABLET BY MOUTH DAILY, Pharmacy: [id number] Start Date: 05/26/21 Status: Ordered celecoxib 200 mg oral capsule Start: 05/25/23 15:24:00 EST, 2 cap, PO, Daily, PRN: as needed for pain Start Date: 05/25/23 Status: Ordered cetirizine 10 mg oral tablet Start: 03/20/23 15:45:00 EDT, See Instructions, Disp# 30 tab, Refills: 11, TAKE 1 TABLET BY MOUTH EVERY DAY NEEDED FOR ALLERGY SYMPTOMS, Pharmacy: [email or web address] Start Date: 03/20/23 Status: Ordered Citracal + D 250 mg-500 intl units (12.5 mcg) oral tablet, chewable Start: 06/07/20 15:28:00 EST Start Date: 06/07/20 Status: Ordered furosemide 20 mg oral tablet Start: 10/19/22 16:14:00 EDT, See Instructions, Disp# 30 tab, Refills: 10, TAKE ONE TABLET BY MOUTHONCE DAILY, [id number] Start Date: 10/19/22 Status: Ordered gabapentin Start: 09/28/23 15:07:00 EDT, 600 mg =, PO, bid Start Date: 09/28/23 Status: Ordered Lions Vincent Start: 01/25/23 13:09:00 EDT, Lions Vincent Start Date: 01/25/23 Status: Ordered Lunesta 2 mg oral tablet Start: 12/27/22 13:36:00 EDT, 1 tab, PO, qhs, Disp# 30 tab, Refills: 1, Take holidays from medication, PRN: as needed for insomnia, [id number] Start Date: 12/27/22 Stop Date: 02/25/23 Status: Ordered magnesium aspartate Start: 12/18/19 16:45:00 EDT Start Date: 12/18/19 Status: Ordered meclizine 25 mg oral tablet Start: 07/12/23 15:07:00 EST, 1 tab, PO, tid, Disp# 30 tab, Refills: 3, PRN: as needed for dizziness, [id number] Start Date: 07/12/23 Status: Ordered meloxicam 15 mg oral tablet Start: 10/08/23 11:59:00 EDT, 1 tab, PO, Daily, Disp# 30 tab, Refills: 6, Pharmacy: [facility] [id number] Start Date: 10/08/23 Status: Ordered Multiple Vitamins [...] PAIN, Note to Pharmacy: PDMP verified, [id number] Start Date: 10/19/23 Status: Ordered primidone 50 mg oral tablet Start: 05/02/23 14:30:00 EDT, 1 tab, PO, qid, Disp# 360 tab, X 90 day, Refills: 3, Stop: 04/26/24 14:30:00 EDT, Pharmacy: [facility] #1919 Start Date: 05/02/23 Stop Date: 04/26/24 Status: Ordered Probiotic Formula Start: 10/31/23 9:58:00 EDT, 1 cap, PO, Daily Start Date: 10/31/23 Status: Ordered propranolol 160 mg oral capsule, extended release Start: 10/08/23 11:59:00 EDT, 1 cap, PO, Daily, Disp# 30 cap, Refills: 11, Pharmacy: [facility] [id number] Start Date: 10/08/23 Status: Ordered Restoril 15 mg oral capsule Start: 06/28/22 12:19:00 EST, 1 cap, PO, qhs, Disp# 30 cap, Refills: 3, PRN: as needed for sleep, [id number] Start Date: 06/28/22 Stop Date: 10/26/22 Status: Ordered Robaxin 500 mg oral tablet Start: 08/31/22 15:48:00 EST, 1 tab, PO, q8h, Disp# 90 tab, Refills: 2, Pharmacy: [facility] #[id number] Start Date: 08/31/22 Stop Date: 11/29/22 Status: Ordered Singulair 10 mg oral tablet Start: 02/28/23 16:00:00 EDT, 1 tab, PO, qPM, Disp# 90 tab, Refills: 3, Pharmacy: [facility] #1919 Start Date: 02/28/23 Status: Ordered Soma 350 mg oral tablet Start: 10/31/23 10:47:00 EDT, 1 tab, PO, bid, Disp# 28 tab, Refills: 0, Pharmacy: [facility] #1919 Start Date: 10/31/23 Stop Date: 11/14/23 Status: Ordered sulfaSALAzine 500 mg oral delayed release tablet Start: 10/26/23 14:13:00 EDT, 1 tab, PO, Daily Start Date: 10/26/23 Status: Ordered traZODone 100 mg oral tablet Start: 01/30/23 10:29:00 EDT, See Instructions, Disp# 180 tab, Refills: 3, 1-2 tab PO qhs, Pharmacy: [facility]/pharm[facility] #[id number] Start Date: 01/30/23 Status: Ordered turmeric Start: 01/25/23 13:08:00 EDT Start Date: 01/25/23 Status: Ordered unknown medication Start: 10/04/22 13:30:00 EDT, tart gotti otc Start Date: 10/04/22 Status: Ordered Valerian Start: 05/25/23 15:27:00 EST Start Date: 05/25/23 Status: Ordered Vitamin B Complex Start: 05/25/23 15:27:00 EST Start Date: 05/25/23 Status: Ordered Mental Status 11/05/23 Barriers to Learning one year None evide nt Mandatory Health Literacy Documentation Yes Health Literacy Communication Barriers N ever Primary Language Tajik Problem List Condition Confirmation Course Effective Dates [...] Effective Dates Health Status Clinical Service Informant Aortic aneurysm Discharge Diagnosis 11/05/23 Non-Specified HLD (hyperlipidemia) Discharge Diagnosis 11/05/23 Non-Specified HTN (hypertension) Discharge Diagnosis 11/05/23 Non-Specified Preop examination Discharge Diagnosis 11/05/23 Non-Specified Procedures Procedure Date Related Diagnosis Body Site [...] L5-S1 3impression: no acute intracranial abnormality 4[facility] Impression: ACR BI-RADS CATEGORY 1: NEGATIVE 1. No evidence of malignancy 5impression: benign-appearing right level 2 mode that measures 0.9 x 0.5 x 0.6 cm. this node contains fatty hilum. this is at site of palpable abnormality. no enlarged lymp nodes are identified 6The lobulated and circumscribed [id number] mas in the 5:00 to 6:00 middle [...] Most recent to oldest [Reference Range]: 1 Patient Weight 116.1 kg (11/05/23 1:24 PM) Heart Rate 74 bpm (11/05/23 1:24 PM) Respiratory Rate 18 br/min (11/05/23 1:24 PM) Blood Pressure 120/68mmHg (11/05/23 1:24 PM) BP Location # 1 Right Arm (11/05/23 1:24 PM) Social History Social History Type Response Smoking Status Never smoked cigaret paramjit Sex Female Implantable Device List Procedure Provider Procedure Date Device Type Site Unknown Unknown 02/14/23 Unknown Unknown Device Identifier Serial Number Lot or Batch Number Manufacturing Date Expiration Date Distinct Identification Code MRI Safety Implantable Status Assigning Authority Unknown Unknown [id number] Unknown 11/06/24 Unknown Unknown Active Unknown [...] Unknown Unknown Unknown Unknown Active Unkn own Cardiology Outpatient Note * DARKE Ramsey Sarah A: PERFORM, MODIFY Event Display: Cardiology Outpt Note Authored Date: [id number] Primary Care Provider DO Overton Kristen M Chief Complaint pre- op clearance History of Present Illness Ms. Roca presents for preop evaluation. She is scheduled for hip surgery on 11/20. She is not having any sob or chest pain. 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 She has edema in her lower extremities which she thinks is stable to slightly worse in the last 6 months. She just bought zip up compression stockings. She did have two falls in since surgery, both in the fall.One happened when a chair slid out fromunder her and another she fell over backward - no loc. No orthopnea. Review of Systems All other systems reviewed and negative except as discussed in the HPI Physical Exam Vitals & Measurements HR:74(Monitored) RR:18 BP:120/68 SpO2:97% WT:116.1kg WT:116.100kg(Dosing) Physical Examination General: Alert and oriented, No acute distress. Respiratory: Lungs are clear to auscultation, Respirations are non-labored. Cardiovascular: Normal rate, Regular rhythm, No murmur, No edema, no carotid bruits to auscultation bilaterally. Integumentary: Warm, Dry, [place] Neurologic: Alert, Oriented. Cognition and Speech: Speech clear and coherent. Psychiatric: Cooperative, Appropriate mood & affect. Assessment/Plan Impression: 1. Palpitations possibly related to anxiety and panic attacks. 2. Hypertension with some degree of noncompliance. 3. Dilated ascending aorta at 4.5 cm 4. Normal biventricular size and function. 5. Spinal stenosis. 6. Anxiety and depression. 7. Asthma. Ms. Roca is stable. She can accomplish 4 METSand ascend a flight of stairs without sob or chest pain. She has some LEedema, but her weight is stable and no signs of CHF on her CXR at [facility] for her preop visit. She is a moderate risk for cardiovascular complication perioperatively. She does not need further cardiac workup prior to her surgery. Her EKG at [facility] was stable. Her echo was reviewed and her aorta is stable. Her bp is stable. Kidney function at [facility] was stable. She will return to the clinic in 6 months. Problem List/Past Medical History Ongoing ANKYLOSING SPONDYLITIS [...] Muscle spasm Nasal congestion Piriformis muscle pain Pre-op exam Primary osteoarthritis of left hip Seasonal allergies [...] cetirizine(cetirizine 10 mg oral tablet), See Instructions eszopiclone(Lunesta 2 mg oral tablet), 2 mg= [...] stroke Relationship: Brother, Age: 25 Years, Cause: [place] but born with heart "problem" Electronic Signature on File CC: Jazmín Overton DO [address] [facility] [address] [facility] [address] CC: Emmanuel Malik MD [address] [facility] [address] [facility] [address] Electronically Reviewed/Signed by: DAREK Pat Author Signature Dt/Tm:11/05/2023 04:34 PM [facility] [place] [facility] Patient Care team information Care Team Personnel Name: DAREK Chinchilla Tara Position: Nurse Pract - Family Med Member Role: Lifetime Relationship Address: Address: [address] [place] [address] [place] Name: DO Diego Franklin J Position: Physician - Family Med Member Role: Lifetime Relationship Address: Address: [address] [facility] [address] [place] [address] Name: DO Overton Kristen M Position: Physician - Family Med Member Role: Lifetime Relationship Address: Address: [address] [facility] [address] [place] [address] Name: Chele Young Ashley Position: Pharmacist Schedule II Member Role: Pharmacy - Lifetime Name: DAREK Evans Lorella G Position: Referring DIRECT Member Role: Lifetime - never expires Address: Address: [address] [place] [address] Care Team Related Persons Name: POLLY ROCA Address: [place] Address: home [address] [place], [place] [phone] Name: LOBO ROCA Address: home [address] [place], [place] [id number] Name: SAADIA ROCA Address: [place] Address: home [address] [place], [place] [phone] Name: JOHN TARANGO Address: [address] Address: [place]
--- OUTSIDE RECORDS SUMMARY | 2023-11-22 00:28 | External Medical Summary | Continuity of Care Document ---
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..] bid, Disp# 1 each, Refills: 6, Pharmacy: [facility]/pharmacy #[id number] Start Date: 05/22/19 Status: Ordered albuterol 0.083% for nebulization Start: 04/29/18 9:01:00 EDT, 3 mL, inhaled, q6h, Disp# 25 each, Refills: 5, PRN: as needed for wheezing, Pharmacy: [facility]/pharmacy #[id number] Start Date: 04/29/18 Status: Ordered albuterol CFC free 90 mcg/inh MDI Start: 06/10/19 9:19:00 EST, 2 puff, inhaled, qid, Disp# 1 each, Refills: 0, PRN: as needed for wheezing, Pharmacy: [facility]/pharmacy #[id number] Start Date: 06/10/19 Status: Ordered Ambien Start: 01/25/23 11:17:00 EDT, PRN: as needed for sleep Start Date: 01/25/23 Status: Ordered amLODIPine 5 mg oral tablet Start: 06/25/23 15:45:00 EST, See Instructions, Disp# 135 tab, Refills: 3, TAKE 1 AND 1/2 TABLETS BY MOUTH DAILY, Pharmacy: [facility]/pharmacy #[id number] Start Date: 06/25/23 Status: Ordered amoxicillin 500 mg oral capsule Start: 05/03/23 16:09:00 EDT, See Instructions, Disp# 12 cap, Refills: 3, 4 CAPSULES BY MOUTH INDICATED ONE HOUR BEFORE DENTAL AND OTHER PROCEDURES DIRECTED, Pharmacy: [facility]/pharmacy #1918 Start Date: 05/03/23 Status: Ordered benfotiamine Start: 05/25/23 15:27:00 EST Start Date: 05/25/23 Status: Ordered Boswellia Start: 01/25/23 13:09:00 EDT, Boswellia Start Date: 01/25/23 Status: Ordered busPIRone 5 mg oral tablet See Instructions, Disp# 90 tab, Refills: 1, TAKE 1 TABLET BY MOUTH DAILY, Pharmacy: [id number] Start Date: 05/26/21 Status: Ordered celecoxib 200 mg oral capsule Start: 05/25/23 15:24:00 EST, 2 cap, PO, Daily, PRN: as needed for pain Start Date: 05/25/23 Status: Ordered cetirizine 10 mg oral tablet Start: 03/20/23 15:45:00 EDT, See Instructions, Disp# 30 tab, Refills: 11, TAKE 1 TABLET BY MOUTH EVERY DAY NEEDED FOR ALLERGY SYMPTOMS, Pharmacy: [id number] Start Date: 03/20/23 Status: Ordered Citracal + D 250 mg-500 intl units (12.5 mcg) oral tablet, chewable Start: 06/07/20 15:28:00 EST Start Date: 06/07/20 Status: Ordered furosemide 20 mg oral tablet Start: 10/19/22 16:14:00 EDT, See Instructions, Disp# 30 tab, Refills: 10, TAKE ONE TABLET BY MOUTHONCE DAILY, Pharmacy: [facility]/pharmacy #[id number] Start Date: 10/19/22 Status: Ordered gabapentin Start: 09/28/23 15:07:00 EDT, 600 mg =, PO, bid Start Date: 09/28/23 Status: Ordered Lions Vincent Start: 01/25/23 13:09:00 EDT, Lions Vincent Start Date: 01/25/23 Status: Ordered Lunesta 2 mg oral tablet Start: 12/27/22 13:36:00 EDT, 1 tab, PO, qhs, Disp# 30 tab, Refills: 1, Take holidays from medication, PRN: as needed for insomnia, Pharmacy: [facility]/pharmacy #[id number] Start Date: 12/27/22 Stop Date: 02/25/23 Status: Ordered magnesium aspartate Start: 12/18/19 16:45:00 EDT Start Date: 12/18/19 Status: Ordered meclizine 25 mg oral tablet Start: 07/12/23 15:07:00 EST, 1 tab, PO, tid, Disp# 30 tab, Refills: 3, PRN: as needed for dizziness, [id number] Start Date: 07/12/23 Status: Ordered meloxicam 15 mg oral tablet Start: 10/08/23 11:59:00 EDT, 1 tab, PO, Daily, Disp# 30 tab, Refills: 6, Pharmacy: [facility] Start Date: 10/08/23 Status: Ordered Multiple Vitamins [...] PAIN, Note to Pharmacy: PDMP verified, Pharmacy: [facility]/pharmacy #[id number] Start Date: 10/19/23 Status: Ordered primidone 50 mg oral tablet Start: 05/02/23 14:30:00 EDT, 1 tab, PO, qid, Disp# 360 tab, X 90 day, Refills: 3, Stop: 04/26/24 14:30:00 EDT, [id number] Start Date: 05/02/23 Stop Date: 04/26/24 Status: Ordered Probiotic Formula Start: 10/31/23 9:58:00 EDT, 1 cap, PO, Daily Start Date: 10/31/23 Status: Ordered propranolol 160 mg oral capsule, extended release Start: 10/08/23 11:59:00 EDT, 1 cap, PO, Daily, Disp# 30 cap, Refills: 11, Pharmacy: [facility] Start Date: 10/08/23 Status: Ordered Restoril 15 mg oral capsule Start: 06/28/22 12:19:00 EST, 1 cap, PO, qhs, Disp# 30 cap, Refills: 3, PRN: as needed for sleep, Pharmacy: [facility] #[id number] Start Date: 06/28/22 Stop Date: 10/26/22 Status: Ordered Robaxin 500 mg oral tablet Start: 08/31/22 15:48:00 EST, 1 tab, PO, q8h, Disp# 90 tab, Refills: 2, [id number] Start Date: 08/31/22 Stop Date: 11/29/22 Status: Ordered Singulair 10 mg oral tablet Start: 02/28/23 16:00:00 EDT, 1 tab, PO, qPM, Disp# 90 tab, Refills: 3, Pharmacy: [facility]/pharmacy #1919 Start Date: 02/28/23 Status: Ordered Soma 350 mg oral tablet Start: 10/31/23 10:47:00 EDT, 1 tab, PO, bid, Disp# 28 tab, Refills: 0, Pharmacy: [facility]/pharmacy #1919 Start Date: 10/31/23 Stop Date: 11/14/23 Status: Ordered sulfaSALAzine 500 mg oral delayed release tablet Start: 10/26/23 14:13:00 EDT, 1 tab, PO, Daily Start Date: 10/26/23 Status: Ordered traZODone 100 mg oral tablet Start: 01/30/23 10:29:00 EDT, See Instructions, Disp# 180 tab, Refills: 3, 1-2 tab PO qhs, Pharmacy: [facility]/pharmacy #[id number] Start Date: 01/30/23 Status: Ordered turmeric Start: 01/25/23 13:08:00 EDT Start Date: 01/25/23 Status: Ordered unknown medication Start: 10/04/22 13:30:00 EDT, tart gotti otc Start Date: 10/04/22 Status: Ordered Valerian Start: 05/25/23 15:27:00 EST Start Date: 05/25/23 Status: Ordered Vitamin B Complex Start: 05/25/23 15:27:00 EST Start Date: 05/25/23 Status: Ordered Problem List Condition Confirmation Course Effective Dates [...] lumbar spine Confirmed Active Wheezing Confirmed Active Procedures Procedure Date Related Diagnosis Body Site [...] L5-S1 3impression: no acute intracranial abnormality 4[facility] Impression: ACR BI-RADS CATEGORY 1: NEGATIVE 1. No evidence of malignancy 5impression: benign-appearing right level 2 mode that measures 0.9 x 0.5 x 0.6 cm. this node contains fatty hilum. this is at site of palpable abnormality. no enlarged lymp nodes are identified 6The lobulated and circumscribed [id number] mas in the 5:00 to 6:00 middle [...] in 3 years ( 2025) 9childhood Results Radiology Reports * Exam Date Time Procedure Performing Provider Status 10/30/23 1:23 PM Echo TransTHORacic TTE Limited Carlene Le; Final Notes: (Echo TransTHORacic TTE Limited) Reason For Exam: ao only Echo TransTHORacic TTE Limited Report Signatures Finalized by Dr. Stephen Powell MD on 10/30/2023 02:56 PM [place] Act 112: No-No further action needed Summary 1. Limited 2D imaging performed to evaluate the aorta size. 2. Normal size aortic root (3.6 cm) for BSA. 3. Dilated ascending aorta (4.4 cm). 4. The aortic arch measures 4.0 cm. 5. Compared to previous study from 11/15/2022 , there is no significant change. Patient Info Name: MAISHA ROCA Age: 63 years : 1960 Gender: Female Ht: 162 cm Wt: 115 kg BSA: 2.34 m2 HR: 65 bpm BP: 158 / 94 mmHg Heart Rhythm: Sinus Rhythm Technical Quality: Good Exam Date: 10/30/2023 1:08 PM Exam Location: [facility] Patient Status: Outpatient Staff Ordering Physician: Stephen Powell Ballistic Technician: Carlene Le RDCS, T Attending Physician: Stephen Powell ([email or web address]) Study Info CPT 96758 - Indications I71.9 - Aortic aneurysm Procedure(s) * A limited two-dimensional transthoracic echocardiogram was performed. Exam Type: Cardiac Basic Aorta Calcified aortic root and sinotubular junction. Normal size aortic root (3.6 cm) for BSA. Dilated ascending aorta (4.4 cm). The aortic arch measures 4.0 cm. Aorta Name Value Normal Ascending Aorta Sinus of Valsalva Diameter 3.6 cm 2.7-3.3 Sinus of Valsalva Index 1.54 cm/m2 1.60-2.00 Prox Asc Ao Diameter 4.4 cm 2.3-3.1 Prox Asc Ao Diameter Index 1.88 cm/m2 1.30-1.90 Thoracic Aorta Ao Arch Diameter 4.0 cm Final Signed by:DO Powell Jason D Signed (Electronic Signature):10/30/2023 1:08 p Social History Social History Type Response Smoking Status Never smoked cigaret paramjit Sex Female Implantable Device List Procedure Provider Procedure Date Device Type Site Unknown Unknown 02/14/23 Unknown Unknown Device Identifier Serial Number Lot or Batch Number Manufacturing Date Expiration Date Distinct Identification Code MRI Safety Implantable Status Assigning Authority Unknown Unknown [id number] AAF Unknown 11/06/24 Unknown Unknown Active Unknown [...] Unknown Unknown Unknown Unknown Active Unkn own Patient Care team information Care Team Personnel Name: DAREK Chinchilla Tara Position: Nurse Pract - Family Med Member Role: Lifetime Relationship Address: Address: [address] [place] [address] [place] Name: DO Diego Franklin J Position: Physician - Family Med Member Role: Lifetime Relationship Address: Address: [address] [facility] [address] [place] [address] Name: DO Overton Kristen M Position: Physician - Family Med Member Role: Lifetime Relationship Address: Address: [address] [facility] [address] [place] [address] Name: Chele Young Ashley Position: Pharmacist Schedule II Member Role: Pharmacy - Lifetime Name: DAREK Evans Lorella G Position: Referring DIRECT Member Role: Lifetime - never expires Address: Address: [address] [place] [id number] Care Team Related Persons Name: POLLY ROCA Address: [place] Address: home [address] [place], [place] [phone] Name: LOBO ROCA Address: home [address] [place], [place] [phone] Name: SAADIA ROCA Address: [place] Address: home [address] [place], [place] [phone] Name: JOHN TARANGO Address: [address] Address: [place]
[2023-11-22 05:45] LABS: Basophils # (auto) 0.03 K/uL (0.00-0.20); Basophils % (auto) 0.4 %; Eosinophils # (auto) 0.33 K/uL (0.00-0.50); Eosinophils % (auto) 4.6 %; Hematocrit (blood only) 31.4 % (37.0-47.0); Hemoglobin 10.3 g/dl (12.0-16.0); Immature Granulocytes # (auto) 0.02 K/uL (0.01-0.20); Immature Granulocytes % (auto) 0.3 %; Lymphocytes # (auto) 1.12 K/uL (1.20-3.40); Lymphocytes % (auto) 15.4 %; Mean Corpuscular Hemoglobin 29.4 pg (25.0-34.0); Mean Corpuscular Hgb Conc 32.8 g/dL (32.0-36.0); Mean Corpuscular Volume 89.7 fL (80.0-100.0); Mean Platelet Volume 9.9 fL (9.4-12.4); Monocytes # (auto) 0.68 K/uL (0.11-0.59); Monocytes % (auto) 9.4 %; Neutrophils # (auto) 5.07 K/uL (1.40-6.50); Neutrophils % (auto) 69.9 %; Platelet Count 260 K/uL (130-400); RDW Coefficient of Variation 14.2 % (11.5-14.5); RDW Standard Deviation 46.3 fL (36.4-46.3); White Blood Count 7.25 K/ul (4.8-10.8)
[2023-11-22 06:03] LABS: BUN Creatinine Ratio 28.4 (10-20); Calcium 8.4 mg/dl (8.6-10.3); Creatinine Clr Calc Pharmacy 99.3 ml/min; Est GFR (African American) 98.5 ml/min; Potassium 4.3 mmol/L (3.5-5.1)
[2023-11-22 06:16] LABS: INR 1.1 (0.9-1.1); Prothrombin Time 12.1 Seconds (9.0-12.0)
--- NOTE | 2023-11-22 06:29 | Orthopedic Progress Note ---
Date of Service November 22, 2023 Assessment & Plan Admission and Anticipated Discharge Date Admission Date: November 21, 2023 Orthopedic Progress Note Postop day 1 status post left total replacement with dual mobility noncemented implants. She is doing well. She is up walking around in the room. He is able to use the bathroom. She presently sitting in a chair. Wound dressing clean dry and intact neurovascular check femoral sciatic nerve is normal. A.m. labs reveal hematocrit stable 31 electrolytes look good. Advised concerning the use of Coumadin rather than Eliquis based on the need for her to use primidone. Assessment doing well status post left total hip replacement with dual mobility implants noncemented. At this point after PT OT today she can be discharged. Wound Prevena will be placed this morning by physician assistant front desk manager. Discharge on Coumadin 5 mg. Check INR on Sunday. Follow-up in 1 week for removal of Prevena and placement of the compression dressing based on body habitus.
[2023-11-22] MEDS: ONDANSETRON INJ 2 MG/ML 2 ML VIAL IV PRN (07:21)
[2023-11-22] MEDS: dexAMETHasone 10 MG in SYRINGE 0 ML IV SCH (08:09)
[2023-11-22] MEDS: PRIMIDONE 50 MG TAB PO SCH (08:09)
[2023-11-22] MEDS: amLODIPine BESYLATE 5 MG TAB PO SCH (08:10)
[2023-11-22] MEDS: MULTIVITAMIN TAB PO SCH (08:10)
[2023-11-22] MEDS ORDERED: APIXABAN 2.5 MG TAB PO SCH (09:00)
--- NOTE | 2023-11-22 09:02 | Orthopedic Progress Note ---
Date of Service November 22, 2023 Assessment & Plan (1) Status post left hip replacement: Plan: The patient was educated regarding today's findings. Conservative care measures were discussed. Her dressings were changed today by me. Prevena wound VAC was placed. She was instructed on its use. Good seal was obtained. She will follow-up in the office next at 11:30 AM with me for removal of her wound VAC. She has an appointment in physical therapy tomorrow at the office. I will check in on her then. Continue with the wedge pillow between her legs for sleeping. Continue use of her walker. Warfarin 5 mg dose was given last night. She will receive another 5 mg today. Started on warfarin daily on Sunday evening and continue through the weekend. She will have her blood rechecked on Sunday and her warfarin dose will be adjusted then. She may require higher dosing due to her primidone. Prescriptions for warfarin and Percocet were sent to her pharmacy. Written discharge instructions were provided. Admission and Anticipated Discharge Date Admission Date: November 21, 2023 Subjective This 63-year-old female seen today in her room. She is 1 day status post left total hip arthroplasty. She states she is having some pain, but overall is doing well. She denies any chest pain, shortness of breath, nausea, vomiting, or abdominal pain. Her hip pain is controlled with oral medication. She feels well enough to go home today. No other complaints. Review of Systems Review of Systems: Unchanged from yesterday. Physical Exam Physical Exam: General: Well-developed, well-nourished, obese middle-aged female, in no acute distress. Sitting in her bedside chair. Alert and oriented. Skin: Warm and dry with good turgor. No rashes. No ecchymosis or edema. She has a postsurgical dressing in place on the left hip. Upon removal, there is scant dried blood on her most inner dressings. No active bleeding from her surgical site. Silvano are in place. Wound edges are well-approximated. Musculoskeletal: The patient has intact motor function of her left hip. She is able to actively flex the hip. No pain with passive rotation of the hip. She rises from a chair without significant difficulty. She is able to stand on the leg with assistance from her walker. Neurologic: Gross sensation is intact across the left leg by soft touch. Peripheral pulses are 2+. Results & Data Vital Signs (Past 12 Hours) Vital Signs Temp Pulse Resp BP BP Pulse Ox O2 Del Method 11/22/23 07:11 37 C 98 H 18 127/82 94 Room Air 11/22/23 03:13 36.7 C 96 H 16 143/81 H 94 Room Air 11/21/23 22:08 37.5 C 100 H 16 148/85 H 96 Room Air Laboratory Results CBC obtained today shows a white count of 7.25. H&H of 10.3 and 31.4. Platelets 260,000. Normal electrolytes. Glucose this morning 149. INR is 1.1.
[2023-11-22] MEDS: PROPRANOLOL HCL LA 80 MG CAPCR PO SCH (10:29)
== END 2023-11-22 12:10 | disposition home or self-care (01) ==
LOC: 3E 05:24 → ASU 05:24

== ENCOUNTER 2024-11-19 05:28 | Observation (INO) ==
--- NOTE | 2024-11-17 08:47 | Anesthesiology Consultation ---
Date of Service November 17, 2024 Assessment & Plan (1) Encounter for pre-operative examination: - cardiology pre-operative evaluation 11/11/24: "...preparing to have right knee replaced...can ascend a flight of stairs without sob or chest pain...no sob or chest pain...can ascend a flight of stairs without sob or chest pain...no changes in her functional capacity...can accomplish 4 METS and ascend a flight of stairs without sob or chest pain...some LE edema, but her weight is stable and she appears euvolemic overall...moderate risk for cardiovascular complication perioperatively...does not need further cardiac workup prior to her surgery...EKG was unchanged from previous.. echo at [facility] measured her ascending aorta at 4.2 cm...demonstrated moderate LVH which is new...will have her get lab work to rule out infiltrative disease. Most likely she has some LVH secondary to hypertension...little hypertensive today but she did not take her pills yet...recommended she check her BP at least once a week and let us know if she is over 135/85...return to clinic in 6 months..." BP is reported as 116/70 in office note. Case discussed in detail with Dr. Prasad including notation on echocardiogram and he advised patient was acceptable to proceed if no dizziness or lightheadedness with activities. I contacted patient who denied any dizziness, lightheadedness or chest discomfort with activities. - PCP pre-operative evaluation 11/10/24: "...given cardiac history I do recommend that she follows up with cardiology prior to her procedure for cardiac clearance..." - Outpatient joint assessment: Patient is currently scheduled for inpatient pathway. If re-evaluated and patient/surgeon requests outpatient pathway, patient is not advised candidate for outpatient joint program. - Per director recreation center on 11/12/24: No known infectious disease contacts, current infectious disease symptoms in past 10 days or COVID positive test result in the past 30 days. Chart Review Chart Review: Acceptable Risk for Surgery and Patient seen in Pre Admission Testing History Surgery Operation Date: 11/19/24 08:50 Proposed Procedures p Right Total Knee Arthroplasty - Emmanuel Malik MD Height/Weight Height: 5 ft 6 in Weight: 102.512 kg Allergies Allergy/AdvReac Type Severity Reaction Status Date / Time AKIRA Inhibitors Allergy Intermediate Wheezing Verified 11/12/24 14:30 Iodinated Contrast Media Allergy Intermediate Wheezing Verified 11/12/24 14:30 mold Allergy Intermediate Verified 11/12/24 14:30 Aromatic Oils Allergy Intermediate Wheezing Uncoded 11/12/24 14:30 (Perfumes) Dust Allergy Mild Dust, Uncoded 11/12/24 14:30 mold- runny nose Medications Home Medications Medication Instructions Recorded Confirmed Last Taken albuterol sulfate 90 mcg/actuation 1 - 2 puff inhalation .Q4-6H PRN 06/22/20 11/12/24 11/21/23 04:30 aerosol inhaler Shortness Of Breath amlodipine 5 mg tablet 7.5 mg PO QAM 06/22/20 11/12/24 11/21/23 04:15 cyclobenzaprine 10 mg tablet 10 mg PO TID PRN MUSCLE SPASMS 06/22/20 11/12/24 11/21/23 04:15 fluticasone propionate 230 2 puff inhalation BID PRN Wheezing 06/22/20 11/12/24 07/19/21 mcg-salmeterol 21 mcg/actuation HFA inhaler (Advair HFA) multivitamin (Multiple Vitamins 1 tab PO QAM 06/22/20 11/12/24 11/07/23 tablet) oxycodone 5 mg capsule 5 mg PO Q6H PRN Pain 06/22/20 11/12/24 11/21/23 04:15 trazodone 50 mg tablet 50 - 75 mg PO HS PRN Sleep 06/22/20 11/12/24 11/20/23 21:00 celecoxib 200 mg capsule 200 mg PO QAM 12/13/20 11/12/24 07/19/21 furosemide 20 mg tablet 20 mg PO DAILY PRN Fluid Retention 12/13/20 11/12/24 07/18/21 propranolol 80 mg capsule,24 160 mg PO QAM 12/13/20 11/12/24 11/21/23 04:30 hr,extended release benzonatate 100 mg capsule 100 mg PO TID PRN Cough 07/13/21 11/12/24 07/19/21 magnesium oxide 400 mg PO DAILY 07/13/21 11/12/24 11/07/23 mv-min-vit C 250 gx-[id number]-kdoqi 1 tab PO HS 07/13/21 11/12/24 11/07/23 HCl-herb 124 12.5 mg chewable tablet (Immune Support) primidone 50 mg tablet 50 mg PO QAM 07/13/21 11/12/24 11/21/23 04:15 Herbal Blend 1 dose PO DAILY 10/12/23 11/12/24 11/07/23 Past Medical History Medical History (Updated 11/17/24 @ 08:42 by Livia Michelle PA-C) Aneurysm of thoracic aorta Ascending aortic aneurysm under surveillance by cardio, "Stable" Follows with Dr. Powell-4.2 cm per 11/11/24 office note Ankylosing spondylitis Arthritis Asthma triggered by scents, last used on 11/11 Degenerative joint disease (DJD) of hip Depression Essential tremor Hands, Reason for Primidone History of stomach ulcers Hx of deep venous thrombosis (2013) RLE DVT (~2013), was on blood thinner for short period of time then discontinued No issues since Hypertension Insomnia Migraine Osteoporosis Sleep apnea per hx, pt does not use cpap Vertigo Past Family History Family History Aunt Ovarian cancer Maternal Other Diabetes Hypertension No family history of adverse response to anesthesia Denies family history of Breast cancer Colorectal cancer Uterine cancer Past Surgical History Surgical History (Updated 11/17/24 @ 08:42 by Livia Michelle PA-C) H/O ventral hernia repair History of colonoscopy History of lumbar fusion History of right hip replacement History of tonsillectomy History of tooth extraction History of wisdom tooth extraction S/P epidural steroid injection Status post left hip replacement (11/2023) Social History Smoking Status: Never smoker Do You Dip or Chew Tobacco: No Hx Alcohol Use: Yes alcohol intake frequency: holidays/special occasions only Hx Substance Use: No substance use type: does not use Testing Laboratory Results 11/11/24 WBC: 7.4 H/H: PLATELETS: 342,000 SODIUM: 138 POTASSIUM: 3.9 CHLORIDE: 104 CO2: 25 BUN: 16 CREATININE: 1.4 GLUCOSE: 88 TSH: 1.2 free T4: 1.2 11/13/24 Protein serum: 6.9 Albumin serum: 4.1 Alpha 1 globulin: 0.3 Alpha 2 globulin: 0.8 Beta and gamma globulins: 0.8 Electrocardiogram Date: 11/10/24 NSR, rate 72 bpm Left anterior fascicular block No significant change was found vs 02/12/2020 EKG Echocardiogram Date: 11/08/24 All LV wall segments are hyperdynamic, LVEF 75% LV cavity is small Moderate cLVH Aortic valve sclerosis is mild, without significant aortic valvular stenosis Insufficient evaluation of the LVOT and mitral valve to exclude LVOT gradient. Consideration should be given to repeat study with attention to the LVOT at rest and with valsalva Grade I diastolic dysfunction
--- NOTE | 2024-11-19 05:25 | History & Physical Bridge Note ---
Date of Service November 19, 2024 History & Physical Bridge Note I have examined the patient, reviewed the History & Physical and in the interval since the performance of the History & Physical I have noted the following changes of clinical significance:consent and site verified.reviewed risks especially stiffness and infection. no changes noted
--- NOTE | 2024-11-19 05:26 | History & Physical Bridge Note ---
Date of Service November 19, 2024 History & Physical Bridge Note I have examined the patient, reviewed the History & Physical and in the interval since the performance of the History & Physical I have noted the following changes of clinical significance: no changes noted
--- OUTSIDE RECORDS SUMMARY | 2024-11-19 05:35 | External Medical Summary | Continuity of Care Document ---
Author Name Unknown Organization [facility] [address] [facility] 1 Address [address] [place], [place] [id number] Care Team Providers Care Beverage Sales Consultant Name Role Phone Jazmín Overton Primary Care Physician [phone] [id number] Date(s): 11/13/24 - 11/13/24 [facility] 303 [facility] 1 [facility] 1 [place], [place] [phone] Encounter Diagnosis Cardiomegaly(Final) - Discharge Disposition: Home or Self Care Attending Physician: DAREK Ramsey Sarah A Referring Physician: DAREK Ramsey Sarah A Encounter Type: Clinic Allergies, Adverse Reactions, Alerts Substance Criticality Severity Reaction Reaction Severity Status Allergy Not found in Search Unable to assess criticality Moderate WHEEZING FROM PERFUMES Active Dust Active Mold Active IVP dye throat swelling Acti ve AKIRA Inhibitors cough Activ e iodine throat swelling Acti ve Immunizations Given and Recorded Vaccine Date Status [...] 500 mg oral tablet Start: 02/15/23 8:15:00 AM EDT, 2 tab, PO, q8h Start Date: 02/15/23 Status: Ordered Repeat number: 1 Advair HFA 230 mcg-21 mcg Start: 05/22/19 10:47:25 AM EST, 2 puff, inhaled, bid, Disp# 1 each, Refills: 6, [id number] Start Date: 05/22/19 Status: Ordered Quantity: 1.0 Unit: each Repeat number: 7 albuterol 0.083% for nebulization Start: 04/29/18 9:01:00 AM EDT, 3 mL, inhaled, q6h, Disp# 25 each, Refills: 5, PRN: as needed for wheezing, Pharmacy: [facility] Start Date: 04/29/18 Status: Ordered Quantity: 25.0 Unit: each Repeat number: 6 albuterol CFC free 90 mcg/inh MDI Start: 06/10/19 9:19:00 AM EST, 2 puff, inhaled, qid, Disp# 1 each, Refills: 0, PRN: as needed for wheezing, Pharmacy: [facility]/pharmacy #1918 Start Date: 06/10/19 Status: Ordered Quantity: 1.0 Unit: each Repeat number: 1 amLODIPine 2.5 mg oral tablet Start: 05/08/24 11:26:00 AM EDT, 1 tab, PO, Daily, Disp# 90 tab, Refills: 1, take with the 5 mg amlodipine, [id number] Start Date: 05/08/24 Stop Date: 11/04/24 Status: Ordered Quantity: 90.0 Unit: tab Repeat number: 2 amLODIPine 5 mg oral tablet Start: 05/06/24 3:32:00 PM EDT, See Instructions, Disp# 135 tab, Refills: 3, TAKE 1 AND 1/2 TABLETSBY MOUTH DAILY, [facility] Start Date: 05/06/24 Status: Ordered Quantity: 135.0 Unit: tab Repeat number: 4 amoxicillin 500 mg oral capsule Start: 09/01/24 2:16:00 PM EST, 4 cap, PO, As indicated, Disp# 12 cap, Refills: 3, one hour before dental and other procedures as directed, Pharmacy: [facility] #[facility] Start Date: 09/01/24 Status: Ordered Quantity: 12.0 Unit: cap Repeat number: 4 Atarax 10 mg oral tablet Start: 09/08/24 4:45:00 PM EST, 1 tab, PO, tid, Disp# 30 tab, Refills: 3, PRN: as needed for anxiety,Pharm[facility]: [facility] Start Date: 09/08/24 Status: Ordered Quantity: 30.0 Unit: tab Repeat number: 4 Bos[place] Start: 01/25/23 1:09:00 PM EDT, [place] Start Date: 01/25/23 Status: Ordered Repeat number: 1 busPIRone 5 mg oral tablet See Instructions, Disp# 90 tab, Refills: 1, TAKE 1 TABLET BY MOUTH DAILY, Pharmacy: [facility] [id number] Start Date: 05/26/21 Status: Ordered Quantity: 90.0 Unit: tab Repeat number: 1 CeleBREX 200 mg oral capsule Start: 03/26/24 11:55:00 AM EDT, 1 cap, PO, Daily, Disp# 30 cap, Refills: 6, PRN: as needed for pain, [id number] Start Date: 03/26/24 Stop Date: 10/22/24 Status: Ordered Quantity: 30.0 Unit: cap Repeat number: 7 cetirizine 10 mg oral tablet Start: 03/20/23 3:45:00 PM EDT, See Instructions, Disp# 30 tab, Refills: 11, TAKE 1 TABLET BY MOUTH EVERY DAY NEEDED FOR ALLERGY SYMPTOMS, Pharmacy: [id number] Start Date: 03/20/23 Status: Ordered Quantity: 30.0 Unit: tab Repeat number: 1 choline Start: 09/03/24 11:43:00 AM EST, choline Start Date: 09/03/24 Status: Ordered Repeat number: 1 Citracal + D 250 mg-500 intl units (12.5 mcg) oral tablet, chewable Start: 06/07/20 3:28:00 PM EST Start Date: 06/07/20 Status: Ordered Repeat number: 1 devil's claw Start: 09/03/24 11:41:00 AM EST, devil's claw Start Date: 09/03/24 Status: Ordered Repeat number: 1 furosemide 20 mg oral tablet Start: 10/19/22 4:14:00 PM EDT, See Instructions, Disp# 30 tab, Refills: 10, TAKE ONE TABLET BY MOUTH ONCE DAILY, [id number] Start Date: 10/19/22 Status: Ordered Quantity: 30.0 Unit: tab Repeat number: 11 gabapentin 600 mg oral tablet Start: 03/26/24 11:59:00 AM EDT, 600 mg =, PO, Daily, Disp# 30 tab, Refills: 6, [id number] Start Date: 03/26/24 Stop Date: 10/22/24 Status: Ordered Quantity: 30.0 Unit: tab Repeat number: 7 Jana Cervantese Start: 01/25/23 1:09:00 PM EDT, Jana Cervantese Start Date: 01/25/23 Status: Ordered Repeat number: 1 magnesium aspartate Start: 12/18/19 4:45:00 PM EDT Start Date: 12/18/19 Status: Ordered Repeat number: 1 meclizine 25 mg oral tablet Start: 07/01/24 10:42:00 AM EST, 1 tab, PO, tid, Disp# 30 tab, Refills: 3, PRN: as needed for dizziness, [id number] Start Date: 07/01/24 Status: Ordered Quantity: 30.0 Unit: tab Repeat number: 4 Indications: Dizziness and giddiness; Milk Thistle Start: 10/24/24 11:13:00 AM EDT Start Date: 10/24/24 Status: Ordered Repeat number: 1 mullein liquid Start: 09/03/24 11:42:00 AM EST, mullein liquid Start Date: 09/03/24 Status: Ordered Repeat number: 1 Multiple Vitamins oral tablet Start: 12/19/12 3:18:00 PM EDT, 1 tab, PO, Daily Start Date: 12/19/12 Status: Ordered Repeat number: 1 oxyCODONE 5 mg oral tablet Start: 10/20/24 9:23:00 AM EDT, See Instructions, Disp# 75 tab, Refills: 0, TAKE ONE TABLET BY MOUTHONCE EVERY SIX HOURS NEEDED FOR PAIN, Note to Pharmacy: PDMP verified, [id number] Start Date: 10/20/24 Status: Ordered Quantity: 75.0 Unit: tab Repeat number: 1 Indications: Ankylosing spondylitis of unspecified sites in spine; Radiculopathy, site unspecified;Fibromyalgia; Low back pain, unspecified; predniSONE 20 mg oral tablet Start: 09/03/24 12:20:00 PM EST, 2 tab, PO, Daily, Disp# 10 tab, Refills: 0, [facility] Start Date: 09/03/24 Stop Date: 09/08/24 Status: Ordered Quantity: 10.0 Unit: tab Repeat number: 1 primidone 50 mg oral tablet Start: 09/03/24 12:30:00 PM EST, 1 tab, PO, 5x/Day, Disp# 150 tab, Refills: 3, [facility] Start Date: 09/03/24 Stop Date: 01/01/25 Status: Ordered Quantity: 150.0 Unit: tab Repeat number: 4 Probiotic Formula Start: 10/31/23 9:58:00 AM EDT, 1 cap, PO, Daily Start Date: 10/31/23 Status: Ordered Repeat number: 1 propranolol 160 mg oral capsule, extended release Start: 10/08/23 11:59:00 AM EDT, 1 cap, PO, Daily, Disp# 30 cap, Refills: 11, Pharmacy: [id number] Start Date: 10/08/23 Status: Ordered Quantity: 30.0 Unit: cap Repeat number: 1 Robaxin 500 mg oral tablet Start: 08/31/22 3:48:00 PM EST, 1 tab, PO, q8h, Disp# 90 tab, Refills: 2, [facility] Start Date: 08/31/22 Stop Date: 11/29/22 Status: Ordered Quantity: 90.0 Unit: tab Repeat number: 3 Indications: Spondylolisthesis, lumbar region; Muscle spasm of back; Peyton [employer] Start: 10/24/24 11:13:00 AM EDT Start Date: 10/24/24 Status: Ordered Repeat number: 1 Singulair 10 mg oral tablet Start: 09/03/24 12:28:00 PM EST, 1 tab, PO, qPM, Disp# 30 tab, Refills: 11, [facility] Start Date: 09/03/24 Status: Ordered Quantity: 30.0 Unit: tab Repeat number: 12 Topamax 25 mg oral tablet Start: 08/01/24 4:28:00 PM EST, 1 tab, PO, bid, Disp# 60 tab, Refills: 3, [facility] Start Date: 08/01/24 Stop Date: 11/29/24 Status: Ordered Quantity: 60.0 Unit: tab Repeat number: 4 traZODone 100 mg oral tablet Start: 08/01/24 4:27:00 PM EST, See Instructions, Disp# 60 tab, Refills: 11, 1-2 tab PO qhs, [id number] Start Date: 08/01/24 Status: Ordered Quantity: 60.0 Unit: tab Repeat number: 12 Indications: Sleep disorder, unspecified; turmeric Start: 01/25/23 1:08:00 PM EDT Start Date: 01/25/23 Status: Ordered Repeat number: 1 unknown medication Start: 10/04/22 1:30:00 PM EDT, tart gotti otc Start Date: 10/04/22 Status: Ordered Repeat number: 1 Valerian Start: 05/25/23 3:27:00 PM EST Start Date: 05/25/23 Status: Ordered Repeat number: 1 Vitamin B Complex Start: 05/25/23 3:27:00 PM EST Start Date: 05/25/23 Status: Ordered Repeat number: 1 Problem List Condition Confirmation Course Effective Dates Status Health St atus Informant ANKYLOSING SPONDYLITIS Confirmed Active Antibiotic prophylaxis for dental procedure indicated due to prior joint replacement Confirmed Active Aortic aneurysm Confirmed Active ASTHMA Confirmed Active Body mass index 40+ - severely obese (finding) Confirmed Active Essential tremor Confirmed Active Fibromyalgia Confirmed Active S/P total hip arthroplasty Confirmed Active S/P total left hip arthroplasty Confirmed Active HTN (hypertension) Confirmed Active Sleep disorder Confirmed 04/02/13 Active Lumbar spinal stenosis Confirmed Active Procedures Procedure Date Related Diagnosis Body Site Status Entire left hip 11/21/23 Completed Left hip osteoarthritis 11/21/23 C ompleted Electrodesiccation with curettage 1 10/04/22 Completed Epidural [...] L5-S1 3impression: no acute intracranial abnormality 4[facility] Impression: ACR BI-RADS CATEGORY 1: NEGATIVE 1. No evidence of malignancy 5impression: benign-appearing right level 2 mode that measures 0.9 x 0.5 x 0.6 cm. this node contains fatty hilum. this is at site of palpable abnormality. no enlarged lymp nodes are identified 6The lobulated and circumscribed [id number] mas in the 5:00 to 6:00 middle [...] negative-- repeat Cologuard in 3 years ( 2026) 9childhood Results Laboratory List Name Date Ferritin (FERRITIN) 11/13/24 Iron Profile (IRON PROFILE) 11/13/24 M-Nabor Quantitation, Random (M-SPIKE,QT ,RAN,UR PKG) 11/13/24 Protein Electrophoresis, Serum (EPG, SER UM PROTEIN) 11/13/24 T4, Free (T4, FREE) 11/13/24 Thyroid Stimulating Hormone (TSH) 11/13/24 Most recent to oldest [Reference Range]: 1 Prot, Serum [6.1-7.9 g/dL] 6.9 g/dL (11/13/24 3:15 PM) Gamma Globulin, Serum Protei n [0.7-1.5 g/dL] 0.8 g/dL (11/13/24 3:15 PM) Alpha-1 Globulin, Serum Prot ein [0.2-0.4 g/dL] 0.3 g/dL (11/13/24 3:15 PM) Beta Globulin, Serum Protein [0.5-1.0 g/dL] 0.8 g/dL (11/13/24 3:15 PM) Alpha-2 Globulin, Serum Prot ein [0.4-0.9 g/dL] 0.8 g/dL (11/13/24 3:15 PM) Albumin, Serum Protein [3.4-5.2 g/dL] 4. 1 g/dL (11/13/24 3:15 PM) Prot/Cret (u) 0.29 (11/13/24 3:15 PM) Protein (u) ran [<25 mg/dL] 106 mg/dL *HI* (11/13/24 3:15 PM) Serum Electro Intrp Technical results co mplete, interpretation to follow on Powerchart. *Unknown* (11/13/24 3:15 PM) Iron [37-145 ug/dL] 72 ug/dL (11/13/24 3:15 PM) Ferritin [11.1-264.0 ng/mL] 60.7 ng/mL 1 (11/13/24 3:15 PM) Fe Sat [14-50 %] 26 % (11/13/24 3:15 PM) Free T4 [0.70-1.48 ng/dL] 1.20 ng/dL 2 (11/13/24 3:15 PM) Total IBC [250-400 ug/dL] 277 ug/dL (11/13/24 3:15 PM) Transferrin [200-360 mg/dL] 235 mg/dL (11/13/24 3:15 PM) TSH [0.47-4.68 uIU/mL] 1.22 uIU/mL 3 (11/13/24 3:15 PM) Creat (u) 360.33 mg/dL 4 (11/13/24 3:15 PM) 1Result Comment: Testing Performed By: Dept of [facility]ology [facility] [place], [address] [facility], [place] [address] 2Result Comment: Testing Performed By: Dept of Pathology [facility], [address] [facility], [place] [address] 3Result Comment: Testing Performed By: Dept of Pathology [facility], [address] [facility], [place] [address] 4Result Comment: Reference Range for Random Urine Not Established. Anatomic Pathology Reports * Report Case Number Specimen Responsible Pathologist Report Status Serum Protein Electrophoresis Report -[id number] MD Roberto, nguyễn Bradshaw; Final * Event Display: CP SE Dx No monoclonal immunoglobulins detected. Recommend UIFE and serum free light chain (SFLC) measurements for complete evaluation of myeloma, if clinically indicated. The SFLC studies may be done on thisserum sample by calling the clinical laboratory at [phone]. Shelbie Mejia MD (Electronically signed by) Verified: 11/14/2024 17:01 EDT Performing Location: [facility] MD Roberto, Shelbie Bradshaw:VERIFY; Authored Date: [id number] Social History Social History Type Response Smoking Status Never smoked cigaret paramjit Sex Female Sex Representation Female (finding) Implantable Device List Procedure Provider Procedure Date Device Type Site Unknown Unknown 02/14/23 Unknown Unknown Device Identifier Serial Number Lot or Batch Number Manufacturing Date Expiration Date Distinct Identification Code MRI Safety Implantable Status Assigning Authority Unknown Unknown [id number] AAF Unknown 11/06/24 Unknown Unknown Active Unknown [...] Family Med Member Role: Lifetime Relationship Address: [address] [place] [address] Telecom: [phone] Name: DO Diego Franklin J Position: Physician - Family Med Member Role: Lifetime Relationship Address: [address] [place] [address] Telecom: [phone] Name: DO Overton Kristen M Position: Physician - Family Med Member Role: Lifetime Relationship Address: [address] [facility] [place] [address] Telecom: [phone] Name: DAREK Evans Lorella G Position: Referring DIRECT Member Role: Lifetime - never expires Address: [address] [place] [address] Telecom: [phone] Care Team Related Persons Name: POLYL ROCA Name: LOBO ROCA Name: SAADIA ROCA Name: JOHN TARANGO Insurance Providers Guarantor name: MAISHA ROCA Health Plan Information #: 1 Payer: [employer] Member Number: [id number] Policy Number: NA Group Number: [id number] Payer Identifier: [id number] Health Plan Information #: 2 Payer: [employer] Member Number: [id number] Policy Number: NA Group Number: [id number] Payer Identifier: [id number]
--- OUTSIDE RECORDS SUMMARY | 2024-11-19 05:35 | External Medical Summary | Continuity of Care Document ---
Author Name Unknown Organization [facility] [address] [facility] Address [address] [place], [place] [id number] Care Team Providers Care Distributor Sales Manager Name Role Phone RenzoJazmín carey Jenelle Primary Care Physician [phone] [id number] Date(s): 11/11/24 - 11/11/[address], [address] [place] [address] [phone] Encounter Diagnosis S/P total knee replacement(Discharge Diagnosis) - 11/13/24 Cardiomegaly(Final) - Discharge Disposition: Home or Self Care Attending Physician: DAREK Ramsey Sarah A Encounter Type: Clinic Allergies, Adverse Reactions, Alerts Substance Criticality Severity Reaction Reaction Severity Status Allergy Not found in Search Unable to assess criticality Moderate WHEEZING FROM PERFUMES Active iodine throat swelling Acti ve Dust Active Mold Active IVP dye throat swelling Acti ve AKIRA Inhibitors cough Activ e Immunizations Given and Recorded Vaccine Date Status [...] bid, Disp# 1 each, Refills: 6, [facility] Start Date: 05/22/19 Status: Ordered Quantity: 1.0 Unit: each Repeat number: 7 albuterol 0.083% for nebulization Start: 04/29/18 9:01:00 AM EDT, 3 mL, inhaled, q6h, Disp# 25 each, Refills: 5, PRN: as needed for wheezing, [facility]acy: [facility] Start Date: 04/29/18 Status: Ordered Quantity: 25.0 Unit: each Repeat number: 6 albuterol CFC free 90 mcg/inh MDI Start: 06/10/19 9:19:00 AM EST, 2 puff, inhaled, qid, Disp# 1 each, Refills: 0, PRN: as needed for wheezing, Pharmacy: [facility] #[facility] Start Date: 06/10/19 Status: Ordered Quantity: 1.0 Unit: each Repeat number: 1 amLODIPine 2.5 mg oral tablet Start: 05/08/24 11:26:00 AM EDT, 1 tab, PO, Daily, Disp# 90 tab, Refills: 1, take with the 5 mg amlodipine, [facility] Start Date: 05/08/24 Stop Date: 11/04/24 Status: Ordered Quantity: 90.0 Unit: tab Repeat number: 2 amLODIPine 5 mg oral tablet Start: 05/06/24 3:32:00 PM EDT, See Instructions, Disp# 135 tab, Refills: 3, TAKE 1 AND 1/2 TABLETSBY MOUTH DAILY, [facility] Start Date: 05/06/24 Status: Ordered Quantity: 135.0 Unit: tab Repeat number: 4 amoxicillin 500 mg oral capsule Start: 09/01/24 2:16:00 PM EST, 4 cap, PO, As indicated, Disp# 12 cap, Refills: 3, one hour before dental and other procedures as directed, Pharmacy: [facility] #[facility] Start Date: 09/01/24 Status: Ordered Quantity: 12.0 Unit: cap Repeat number: 4 Atarax 10 mg oral tablet Start: 09/08/24 4:45:00 PM EST, 1 tab, PO, tid, Disp# 30 tab, Refills: 3, PRN: as needed for anxiety,[facility] Start Date: 09/08/24 Status: Ordered Quantity: 30.0 Unit: tab Repeat number: 4 [place] Start: 01/25/23 1:09:00 PM EDT, [place] Start Date: 01/25/23 Status: Ordered Repeat number: 1 busPIRone 5 mg oral tablet See Instructions, Disp# 90 tab, Refills: 1, TAKE 1 TABLET BY MOUTH DAILY, Pharmacy: [facility] [id number] Start Date: 05/26/21 Status: Ordered Quantity: 90.0 Unit: tab Repeat number: 1 CeleBREX 200 mg oral capsule Start: 03/26/24 11:55:00 AM EDT, 1 cap, PO, Daily, Disp# 30 cap, Refills: 6, PRN: as needed for pain, Pharmacy: [facility] #1919 Start Date: 03/26/24 Stop Date: 10/22/24 Status: Ordered Quantity: 30.0 Unit: cap Repeat number: 7 cetirizine 10 mg oral tablet Start: 03/20/23 3:45:00 PM EDT, See Instructions, Disp# 30 tab, Refills: 11, TAKE 1 TABLET BY MOUTH EVERY DAY NEEDED FOR ALLERGY SYMPTOMS, Pharmacy: [id number] Start Date: 03/20/23 Status: Ordered Quantity: 30.0 [...] ONE TABLET BY MOUTH ONCE DAILY, [facility] Start Date: 10/19/22 Status: Ordered Quantity: 30.0 Unit: tab Repeat number: 11 gabapentin 600 mg oral tablet Start: 03/26/24 11:59:00 AM EDT, 600 mg =, PO, Daily, Disp# 30 tab, Refills: 6, [facility] Start Date: 03/26/24 Stop Date: 10/22/24 [...] 3, PRN: as needed for dizziness, [facility] Start Date: 07/01/24 Status: Ordered Quantity: [...] PAIN, Note to Pharmacy: PDMP verified, [facility] Start Date: 10/20/24 Status: Ordered Quantity: 75.0 Unit: tab Repeat number: 1 Indications: Ankylosing spondylitis of unspecified sites in spine; Radiculopathy, site unspecified;Fibromyalgia; Low back pain, unspecified; predniSONE 20 mg oral tablet Start: 09/03/24 12:20:00 PM EST, 2 tab, PO, Daily, Disp# 10 tab, Refills: 0, [facility] Start Date: 09/03/24 Stop Date: 09/08/24 Status: Ordered Quantity: 10.0 Unit: tab Repeat number: 1 primidone 50 mg oral tablet Start: 09/03/24 12:30:00 PM EST, 1 tab, PO, 5x/Day, Disp# 150 tab, Refills: 3, [facility] Start Date: 09/03/24 Stop Date: 01/01/25 Status: Ordered Quantity: 150.0 Unit: tab Repeat number: 4 Probiotic Formula Start: 10/31/23 9:58:00 AM EDT, 1 cap, PO, Daily Start Date: 10/31/23 Status: Ordered Repeat number: 1 propranolol 160 mg oral capsule, extended release Start: 10/08/23 11:59:00 AM EDT, 1 cap, PO, Daily, Disp# 30 cap, Refills: 11, Pharmacy: [id number] Start Date: 10/08/23 Status: Ordered Quantity: 30.0 Unit: cap Repeat number: 1 Robaxin 500 mg oral tablet Start: 08/31/22 3:48:00 PM EST, 1 tab, PO, q8h, Disp# 90 tab, Refills: 2, Pharmacy: [facility] #[facility]19 Start Date: 08/31/22 Stop Date: 11/29/22 Status: Ordered Quantity: 90.0 Unit: tab Repeat number: 3 Indications: Spondylolisthesis, lumbar region; Muscle spasm of back; [employer] Start: 10/24/24 11:13:00 AM EDT Start Date: 10/24/24 Status: Ordered Repeat number: 1 Singulair 10 mg oral tablet Start: 09/03/24 12:28:00 PM EST, 1 tab, PO, qPM, Disp# 30 tab, Refills: 11, [facility] Start Date: 09/03/24 Status: Ordered Quantity: 30.0 Unit: tab Repeat number: 12 Topamax 25 mg oral tablet Start: 08/01/24 4:28:00 PM EST, 1 tab, PO, bid, Disp# 60 tab, Refills: 3, [facility] Start Date: 08/01/24 Stop Date: 11/29/24 Status: Ordered Quantity: 60.0 Unit: tab Repeat number: 4 traZODone 100 mg oral tablet Start: 08/01/24 4:27:00 PM EST, See Instructions, Disp# 60 tab, Refills: 11, 1-2 tab PO qhs, [facility] Start Date: 08/01/24 Status: Ordered Quantity: [...] Date: 05/25/23 Status: Ordered Repeat number: 1 Mental Status 11/11/24 Barriers to Learning one year None evide nt Mandatory Health Literacy Documentation Yes Health Literacy Communication Barriers N ever Primary Language Serbian Problem List Condition Confirmation Course Effective Dates [...] 04/02/13 Active Lumbar spinal stenosis Confirmed Active Diagnosis Diagnosis Type Effective Dates Health Status Clinical Service Informant S/P total knee replacement Discharge Diagnosis 11/13/24 Non-Specified Procedures Procedure Date Related Diagnosis Body [...] L5-S1 3impression: no acute intracranial abnormality 4[facility] Impression: ACR BI-RADS CATEGORY 1: NEGATIVE 1. No evidence of malignancy 5impression: benign-appearing right level 2 mode that measures 0.9 x 0.5 x 0.6 cm. this node contains fatty hilum. this is at site of palpable abnormality. no enlarged lymp nodes are identified 6The lobulated and circumscribed [id number] mas in the 5:00 to 6:00 middle [...] to oldest [Reference Range]: 1 Patient Weight 105 kg (11/11/24 2:27 PM) Heart Rate 100 bpm (11/11/24 2:27 PM) Respiratory Rate 18 br/min (11/11/24 2:27 PM) Blood Pressure 142/84mmHg (11/11/24 2:27 PM) BP Location # 1 Right Arm (11/11/24 2:27 PM) Social History Social History Type Response Smoking Status Never smoked cigaret paramjit Sex Female Sex Representation Female (finding) Implantable Device List Procedure Provider Procedure Date Device Type Site Unknown Unknown 02/14/23 Unknown Unknown Device Identifier Serial Number Lot or Batch Number Manufacturing Date Expiration Date Distinct Identification Code MRI Safety Implantable Status Assigning Authority Unknown Unknown [id number] Unknown 11/06/24 Unknown Unknown Active Unknown [...] Family Med Member Role: Lifetime Relationship Address: [address] [place] [address] Telecom: [phone] Name: DO Diego Franklin J Position: Physician - Family Med Member Role: Lifetime Relationship Address: [address] [facility] [address] [place] [address] [place] Telecom: [phone] Name: DO Overton Kristen M Position: Physician - Family Med Member Role: Lifetime Relationship Address: [address] [facility] [address] Telecom: [phone] Name: DAREK Evans Lorella G Position: Referring DIRECT Member Role: Lifetime - never expires Address: [address] [place] [address] Telecom: [phone] Care Team Related Persons Name: POLLY ROCA Name: LOBO ROCA Name: SAADIA ROCA Name: JOHN TARANGO Insurance Providers Guarantor name: MAISHA Almanzar ROCA Health Plan Information #: 1 Payer: [employer] P[employer] Member Number: [id number] Policy Number: NA Group Number: [id number] Payer Identifier: [id number] Health Plan Information #: 2 Payer: [employer] P[employer] Member Number: [id number] Policy Number: NA Group Number: NA Payer Identifier: [id number]
--- OUTSIDE RECORDS SUMMARY | 2024-11-19 05:35 | External Medical Summary | Continuity of Care Document ---
Author Name Unknown Organization [facility] [address] [facility] Address [address] [place], [place] [id number] Care Team Providers Care Insurance Follow Up Representative Name Role Phone RenzoJazmín carey Jenelle Primary Care Physician [phone] [id number] Date[facility]s): 11/11/24 - 11/11/24 [facility] [address] [facility] [address] [place] [address] [address], [address] [place], [place] [phone] Encounter Diagnosis Aortic aneurysm of unspecified site, without rupture(Final) - Unilateral primary osteoarthritis, right knee(Final) - Discharge Disposition: Home or Self Care Attending Physician: DAREK Gomez Katy Marie Referring Physician: DAREK Gomez Katy Marie Encounter Type: Clinic Allergies, Adverse Reactions, Alerts Substance Criticality Severity Reaction Reaction Severity Status Dust Active Mold Active IVP dye throat swelling Acti ve AKIRA Inhibitors cough Activ e iodine throat swelling Acti ve Allergy Not found in Search Unable to assess criticality Moderate WHEEZING FROM PERFUMES Active Immunizations Given and Recorded Vaccine Date [...] bid, Disp# 1 each, Refills: 6, Pharmacy: [facility]/pharmacy #1919 Start Date: 05/22/19 Status: Ordered Quantity: 1.0 Unit: each Repeat number: 7 albuterol 0.083% for nebulization Start: 04/29/18 9:01:00 AM EDT, 3 mL, inhaled, q6h, Disp# 25 each, Refills: 5, PRN: as needed for wheezing, Pharmacy: [facility]/pharmacy #1919 Start Date: 04/29/18 Status: Ordered Quantity: 25.0 Unit: each Repeat number: 6 albuterol CFC free 90 mcg/inh MDI Start: 06/10/19 9:19:00 AM EST, 2 puff, inhaled, qid, Disp# 1 each, Refills: 0, PRN: as needed for wheezing, Pharmacy: [facility]/pharmacy #1919 Start Date: 06/10/19 Status: Ordered Quantity: 1.0 Unit: each Repeat number: 1 amLODIPine 2.5 mg oral tablet Start: 05/08/24 11:26:00 AM EDT, 1 tab, PO, Daily, Disp# 90 tab, Refills: 1, take with the 5 mg amlodipine, [facility] Start Date: 05/08/24 Stop Date: 11/04/24 Status: Ordered Quantity: 90.0 Unit: tab Repeat number: 2 amLODIPine 5 mg oral tablet Start: 05/06/24 3:32:00 PM EDT, See Instructions, Disp# 135 tab, Refills: 3, TAKE 1 AND 1/2 TABLETSBY MOUTH DAILY, Pharmacy: [facility] #[facility] Start Date: 05/06/24 Status: Ordered Quantity: 135.0 Unit: tab Repeat number: 4 amoxicillin 500 mg oral capsule Start: 09/01/24 2:16:00 PM EST, 4 cap, PO, As indicated, Disp# 12 cap, Refills: 3, one hour before dental and other procedures as directed, Pharmacy: [facility] #[facility] Start Date: 09/01/24 Status: Ordered Quantity: 12.0 Unit: cap Repeat number: 4 Atarax 10 mg oral tablet Start: 09/08/24 4:45:00 PM EST, 1 tab, PO, tid, Disp# 30 tab, Refills: 3, PRN: as needed for anxiety,[facility] Start Date: 09/08/24 Status: Ordered Quantity: 30.0 Unit: tab Repeat number: 4 [place] Start: 01/25/23 1:09:00 PM EDT, [place] Start Date: 01/25/23 Status: Ordered Repeat number: 1 busPIRone 5 mg oral tablet See Instructions, Disp# 90 tab, Refills: 1, TAKE 1 TABLET BY MOUTH DAILY, Pharmacy: [facility] [id number] Start Date: 05/26/21 Status: Ordered Quantity: 90.0 Unit: tab Repeat number: 1 CeleBREX 200 mg oral capsule Start: 03/26/24 11:55:00 AM EDT, 1 cap, PO, Daily, Disp# 30 cap, Refills: 6, PRN: as needed for pain, Pharmacy: [facility] #[facility] Start Date: 03/26/24 Stop Date: 10/22/24 Status: Ordered Quantity: 30.0 Unit: cap Repeat number: 7 cetirizine 10 mg oral tablet Start: 03/20/23 3:45:00 PM EDT, See Instructions, Disp# 30 tab, Refills: 11, TAKE 1 TABLET BY MOUTH EVERY DAY NEEDED FOR ALLERGY SYMPTOMS, Pharmacy: [id number] Start Date: 03/20/23 Status: Ordered Quantity: 30.0 [...] ONE TABLET BY MOUTH ONCE DAILY, [facility] Start Date: 10/19/22 Status: Ordered Quantity: 30.0 Unit: tab Repeat number: 11 gabapentin 600 mg oral tablet Start: 03/26/24 11:59:00 AM EDT, 600 mg =, PO, Daily, Disp# 30 tab, Refills: 6, [facility] Start Date: 03/26/24 Stop Date: 10/22/24 Status: Ordered Quantity: 30.0 Unit: tab Repeat number: 7 Jana Cervantese Start: 01/25/23 1:09:00 PM EDT, Lievette Cervantese Start Date: 01/25/23 Status: Ordered Repeat number: 1 magnesium aspartate Start: 12/18/19 4:45:00 PM EDT Start Date: 12/18/19 Status: Ordered Repeat number: 1 meclizine 25 mg oral tablet Start: 07/01/24 10:42:00 AM EST, 1 tab, PO, tid, Disp# 30 tab, Refills: 3, PRN: as needed for dizziness, Pharmacy: [facility]/pharmacy #1919 Start Date: 07/01/24 Status: Ordered Quantity: [...] PAIN, Note to Pharmacy: PDMP verified, [facility] Start Date: 10/20/24 Status: Ordered Quantity: 75.0 Unit: tab Repeat number: 1 Indications: Ankylosing spondylitis of unspecified sites in spine; Radiculopathy, site unspecified;Fibromyalgia; Low back pain, unspecified; predniSONE 20 mg oral tablet Start: 09/03/24 12:20:00 PM EST, 2 tab, PO, Daily, Disp# 10 tab, Refills: 0, [facility] Start Date: 09/03/24 Stop Date: 09/08/24 Status: Ordered Quantity: 10.0 Unit: tab Repeat number: 1 primidone 50 mg oral tablet Start: 09/03/24 12:30:00 PM EST, 1 tab, PO, 5x/Day, Disp# 150 tab, Refills: 3, [facility] Start Date: 09/03/24 Stop Date: 01/01/25 Status: Ordered Quantity: 150.0 Unit: tab Repeat number: 4 Probiotic Formula Start: 10/31/23 9:58:00 AM EDT, 1 cap, PO, Daily Start Date: 10/31/23 Status: Ordered Repeat number: 1 propranolol 160 mg oral capsule, extended release Start: 10/08/23 11:59:00 AM EDT, 1 cap, PO, Daily, Disp# 30 cap, Refills: 11, Pharmacy: [facility] [id number] Start Date: 10/08/23 Status: Ordered Quantity: 30.0 Unit: cap Repeat number: 1 Robaxin 500 mg oral tablet Start: 08/31/22 3:48:00 PM EST, 1 tab, PO, q8h, Disp# 90 tab, Refills: 2, [facility] Start Date: 08/31/22 Stop Date: 11/29/22 Status: Ordered Quantity: 90.0 Unit: tab Repeat number: 3 Indications: Spondylolisthesis, lumbar region; Muscle spasm of back; [employer] Start: 10/24/24 11:13:00 AM EDT Start Date: 10/24/24 Status: Ordered Repeat number: 1 Singulair 10 mg oral tablet Start: 09/03/24 12:28:00 PM EST, 1 tab, PO, qPM, Disp# 30 tab, Refills: 11, [facility] Start Date: 09/03/24 Status: Ordered Quantity: 30.0 Unit: tab Repeat number: 12 Topamax 25 mg oral tablet Start: 08/01/24 4:28:00 PM EST, 1 tab, PO, bid, Disp# 60 tab, Refills: 3, [facility] Start Date: 08/01/24 Stop Date: 11/29/24 Status: Ordered Quantity: 60.0 Unit: tab Repeat number: 4 traZODone 100 mg oral tablet Start: 08/01/24 4:27:00 PM EST, See Instructions, Disp# 60 tab, Refills: 11, 1-2 tab PO qhs, [facility] Start Date: 08/01/24 Status: Ordered Quantity: [...] L5-S1 3impression: no acute intracranial abnormality 4[facility] Impression: ACR BI-RADS CATEGORY 1: NEGATIVE 1. No evidence of malignancy 5impression: benign-appearing right level 2 mode that measures 0.9 x 0.5 x 0.6 cm. this node contains fatty hilum. this is at site of palpable abnormality. no enlarged lymp nodes are identified 6The lobulated and circumscribed [id number] mas in the 5:00 to 6:00 middle [...] 2025) 9childhood Results Laboratory List Name Date Basic Metabolic Panel (BASIC METAB PANEL ) 11/11/24 Complete Blood Count w Differential (CBC ,DIFFH) 11/11/24 Most recent to oldest [Reference Range]: 1 eGFR CKD-EPI [>60 mL/min/1.73 m2] 41 mL/ min/1.73 m2 1 *LOW* (11/11/24 1:58 PM) Estimated CrCl 45.51 mL/min (11/11/24 1:58 PM) MPV [9.0-12.2 fL] 11.3 fL (11/11/24 1:58 PM) Immature Gran% 0.7 % (11/11/24 1:58 PM) Neut% 59.2 % (11/11/24 1:58 PM) Lymph% 30.2 % (11/11/24 1:58 PM) [place]% 6.2 % (11/11/24 1:58 PM) Baso% 0.5 % (11/11/24 1:58 PM) Eos% 3.2 % (11/11/24 1:58 PM) Immat Gran, Abs [0-0.4 K/uL] 0.05 K/uL (11/11/24 1:58 PM) Neut, Abs [2.0-7.7 K/uL] 4.39 K/uL (11/11/24 1:58 PM) Lymph, Abs [1.0-3.4 K/uL] 2.24 K/uL (11/11/24 1:58 PM) [place], Abs [0-1.0 K/uL] 0.46 K/uL (11/11/24 1:58 PM) Baso, Abs [0-0.1 K/uL] 0.04 K/uL (11/11/24 1:58 PM) Eos, Abs [0-0.5 K/uL] 0.24 K/uL (11/11/24 1:58 PM) Type of Diff: AUTO *Unknown* (11/11/24 1:58 PM) RDW [11.5-14.2 %] 14.2 % (11/11/24 1:58 PM) Anion Gap [5-14 mmol/L] 9 mmol/L (11/11/24 1:58 PM) BUN [7-20 mg/dL] 16 mg/dL (11/11/24 1:58 PM) Ca [8.4-10.2 mg/dL] 9.0 mg/dL (11/11/24 1:58 PM) Cl- [96-107 mmol/L] 104 mmol/L (11/11/24 1:58 PM) HCO3 [22-30 mmol/L] 25 mmol/L (11/11/24 1:58 PM) Cret [0.60-1.00 mg/dL] 1.42 mg/dL *HI* (11/11/24 1:58 PM) Glu [74-106 mg/dL] 88 mg/dL (11/11/24 1:58 PM) Hct [35-44 %] 39.5 % (11/11/24 1:58 PM) Hgb [11.7-15.0 g/dL] 12.3 g/dL (11/11/24 1:58 PM) K [3.5-5.1 mmol/L] 3.9 mmol/L (11/11/24 1:58 PM) MCH [28-33 pg] 29.6 pg (11/11/24 1:58 PM) MCHC [32-36 g/dL] 31.1 g/dL *LOW* (11/11/24 1:58 PM) MCV [81-96 fL] 95.0 fL (11/11/24 1:58 PM) Na [137-145 mmol/L] 138 mmol/L (11/11/24 1:58 PM) Plts [150-350 K/uL] 342 K/uL (11/11/24 1:58 PM) RBC [3.90-5.00 M/uL] 4.16 M/uL (11/11/24 1:58 PM) WBC [4.0-10.4 K/uL] 7.42 K/uL (11/11/24 1:58 PM) 1Result Comment: Testing Performed By: Dept of Pathology [facility] [address], [address], [place] [address] Social History Social History Type Response Smoking Status Never smoked cigaret paramjit Sex Female Sex Representation Female (finding) Implantable Device List Procedure Provider Procedure Date Device Type Site Unknown Unknown 02/14/23 Unknown Unknown Device Identifier Serial Number Lot or Batch Number Manufacturing Date Expiration Date Distinct Identification Code MRI Safety Implantable Status Assigning Authority Unknown Unknown [id number] Unknown 11/06/24 Unknown Unknown Active Unknown [...] Med Member Role: Lifetime Relationship Address: [address] Telecom: [phone] Name: DO Diego Franklin J Position: Physician - Family Med Member Role: Lifetime Relationship Address: [address] [facility] [address] Telecom: [phone] Name: DO Overton Kristen M Position: Physician - Family Med Member Role: Lifetime Relationship Address: [address] [facility] [address] Telecom: [phone] Name: DAREK Evans Lorella G Position: Referring DIRECT Member Role: Lifetime - never expires Address: [address] [place], [place] [address]com: [phone] Care Team Related Persons Name: POLLY ROCA Name: LOBO ROCA Name: SAADIA ROCA Name: JOHN TARANGO Insurance Providers Guarantor name: MAISHA ROCA Health Plan Information #: 1 Payer: [employer] Member Number: [id number] Policy Number: NA Group Number: [id number] Payer Identifier: [id number] Health Plan Information #: 2 Payer: [employer] Member Number: [id number] Policy Number: NA Group Number: NA Payer Identifier: [id number]
--- OUTSIDE RECORDS SUMMARY | 2024-11-19 05:36 | External Medical Summary | Continuity of Care Document ---
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 Manager Name Role Phone Jazmín Overton Primary Care Physician [phone] Encounter [facility] [id number] Date(s): 11/10/24 - 11/10/[address], [address] [address] [phone] Encounter Diagnosis Aortic aneurysm(Discharge Diagnosis) - 11/10/24 Arthritis of right knee(Discharge Diagnosis) - 11/10/24 Pre-op exam(Discharge Diagnosis) - 11/10/24 LVH (left ventricular hypertrophy)(Discharge Diagnosis) - 11/11/24 HTN (hypertension)(Discharge Diagnosis) - 11/11/24 Low back pain(Discharge Diagnosis) - 10/13/24 Radicular pain of left lower extremity(Discharge Diagnosis) - 10/13/24 ANKYLOSING SPONDYLITIS(Discharge Diagnosis) - 10/13/24 Fibromyalgia(Discharge Diagnosis) - 10/13/24 Discharge Disposition: Home or Self Care Attending Physician: DAREK Gomez Katy Marie Referring Physician: DO Overton Kristen M Encounter Type: Clinic Allergies, Adverse Reactions, Alerts Substance Criticality Severity Reaction Reaction Severity Status Allergy Not found in Search Unable to assess criticality Moderate WHEEZING FROM PERFUMES Active Dust Active Mold Active IVP dye throat swelling Acti ve AKIRA Inhibitors cough Activ e iodine throat swelling Acti ve Assessment and Plan Extracted from: Title:Cardiology Office Visit Note Author:DAREK Pond rd, Sarah A Date:11/11/24 Impression: 1. Palpitations possibly related to anxiety and panic attacks. 2. Hypertension with some degree of noncompliance. 3. Dilated ascending aorta at 4.5 cm 10/2023 4. Normal biventricular size and function. Ms. Roca feels well overall. No changes in her functional capacity.She can accomplish 4 METS and ascend a flight of stairs without sob or chest pain. She has some LE edema, but her weight is stable and she appears euvolemic overall. She is a moderate risk for cardiovascular complication perioperatively. She does not need further cardiac workup prior to her surgery. Her EKG was unchnanged from previous Her echo at [facility] measured her ascending aorta at 4.2 cm. She demonstrated moderate LVH which is new. I will have her get lab work to rule out infiltrative disease. Most likely she has some LVH secondary to hypertension. She was a little hypertensive today but she did not take her pills yet. I recommended she check her bp at least once a week and let us know if she is over 135/85. She will return to the clinic in 6 months Extracted from: Title:Pre Op Author:DAREK Gomez Katy Marie Date:11/10/24 1. Aortic aneurysm chronic. stable. Given cardiac history I do recommend that she follows up with cardiology prior to her procedure for cardiac clearance. 2. Arthritis of right knee Chronic. Not controlled. Goal resolution EKG and lab work obtained today for preprocedure. EKG NSR reviewed with KG I do feel that patient needs to see cardiology for clearance before her procedure. Patient verbalizes understanding and agrees with plan as well as return precautions. Immunizations Given and Recorded Vaccine Date Status [...] bid, Disp# 1 each, Refills: 6, [id number] Start Date: 05/22/19 Status: Ordered Quantity: 1.0 Unit: each Repeat number: 7 albuterol 0.083% for nebulization Start: 04/29/18 9:01:00 AM EDT, 3 mL, inhaled, q6h, Disp# 25 each, Refills: 5, PRN: as needed for wheezing, Pharmacy: [id number] Start Date: 04/29/18 Status: Ordered Quantity: 25.0 Unit: each Repeat number: 6 albuterol CFC free 90 mcg/inh MDI Start: 06/10/19 9:19:00 AM EST, 2 puff, inhaled, qid, Disp# 1 each, Refills: 0, PRN: as needed for wheezing, Pharmacy: [facility] #[id number] Start Date: 06/10/19 Status: Ordered Quantity: 1.0 Unit: each Repeat number: 1 amLODIPine 2.5 mg oral tablet Start: 05/08/24 11:26:00 AM EDT, 1 tab, PO, Daily, Disp# 90 tab, Refills: 1, take with the 5 mg amlodipine, [id number] Start Date: 05/08/24 Stop Date: 11/04/24 Status: Ordered Quantity: 90.0 Unit: tab Repeat number: 2 amLODIPine 5 mg oral tablet Start: 05/06/24 3:32:00 PM EDT, See Instructions, Disp# 135 tab, Refills: 3, TAKE 1 AND 1/2 TABLETSBY MOUTH DAILY, Pharmacy: [facility] Start Date: 05/06/24 Status: Ordered Quantity: 135.0 Unit: tab Repeat number: 4 amoxicillin 500 mg oral capsule Start: 09/01/24 2:16:00 PM EST, 4 cap, PO, As indicated, Disp# 12 cap, Refills: 3, one hour before dental and other procedures as directed, Pharmacy: [facility] Start Date: 09/01/24 Status: Ordered Quantity: 12.0 Unit: cap Repeat number: 4 Atarax 10 mg oral tablet Start: 09/08/24 4:45:00 PM EST, 1 tab, PO, tid, Disp# 30 tab, Refills: 3, PRN: as needed for anxiety,Pharmacy: [facility] Start Date: 09/08/24 Status: Ordered Quantity: 30.0 Unit: tab Repeat number: 4 Boswellia Start: 01/25/23 1:09:00 PM EDT, Boswellia Start Date: 01/25/23 Status: Ordered Repeat number: 1 busPIRone 5 mg oral tablet See Instructions, Disp# 90 tab, Refills: 1, TAKE 1 TABLET BY MOUTH DAILY, Pharmacy: [facility] [id number] Start Date: 05/26/21 Status: Ordered Quantity: 90.0 Unit: tab Repeat number: 1 CeleBREX 200 mg oral capsule Start: 03/26/24 11:55:00 AM EDT, 1 cap, PO, Daily, Disp# 30 cap, Refills: 6, PRN: as needed for pain, Pharmacy: [facility] #[id number] Start Date: 03/26/24 Stop Date: 10/22/24 Status: Ordered Quantity: 30.0 Unit: cap Repeat number: 7 cetirizine 10 mg oral tablet Start: 03/20/23 3:45:00 PM EDT, See Instructions, Disp# 30 tab, Refills: 11, TAKE 1 TABLET BY MOUTH EVERY DAY NEEDED FOR ALLERGY SYMPTOMS, Pharmacy: [id number] Start Date: 03/20/23 Status: Ordered Quantity: 30.0 [...] ONE TABLET BY MOUTH ONCE DAILY, [id number] Start Date: 10/19/22 Status: Ordered Quantity: 30.0 Unit: tab Repeat number: 11 gabapentin 600 mg oral tablet Start: 03/26/24 11:59:00 AM EDT, 600 mg =, PO, Daily, Disp# 30 tab, Refills: 6, [id number] Start Date: 03/26/24 Stop Date: 10/22/24 Status: Ordered Quantity: 30.0 Unit: tab Repeat number: 7 Jana Kaur Start: 01/25/23 1:09:00 PM EDT, Jana Kaur Start Date: 01/25/23 Status: Ordered Repeat number: 1 magnesium aspartate Start: 12/18/19 4:45:00 PM EDT Start Date: 12/18/19 Status: Ordered Repeat number: 1 meclizine 25 mg oral tablet Start: 07/01/24 10:42:00 AM EST, 1 tab, PO, tid, Disp# 30 tab, Refills: 3, PRN: as needed for dizziness, [id number] Start Date: 07/01/24 Status: [...] PAIN, Note to Pharmacy: PDMP verified, [id number] Start Date: 10/20/24 Status: Ordered Quantity: 75.0 Unit: tab Repeat number: 1 Indications: Ankylosing spondylitis of unspecified sites in spine; Radiculopathy, site unspecified;Fibromyalgia; Low back pain, unspecified; predniSONE 20 mg oral tablet Start: 09/03/24 12:20:00 PM EST, 2 tab, PO, Daily, Disp# 10 tab, Refills: 0, [id number] Start Date: 09/03/24 Stop Date: 09/08/24 Status: Ordered Quantity: 10.0 Unit: tab Repeat number: 1 primidone 50 mg oral tablet Start: 09/03/24 12:30:00 PM EST, 1 tab, PO, 5x/Day, Disp# 150 tab, Refills: 3, [id number] Start Date: 09/03/24 Stop Date: 01/01/25 Status: Ordered Quantity: 150.0 Unit: tab Repeat number: 4 Probiotic Formula Start: 10/31/23 9:58:00 AM EDT, 1 cap, PO, Daily Start Date: 10/31/23 Status: Ordered Repeat number: 1 propranolol 160 mg oral capsule, extended release Start: 10/08/23 11:59:00 AM EDT, 1 cap, PO, Daily, Disp# 30 cap, Refills: 11, Pharmacy: [id number] Start Date: 10/08/23 Status: Ordered Quantity: 30.0 Unit: cap Repeat number: 1 Robaxin 500 mg oral tablet Start: 08/31/22 3:48:00 PM EST, 1 tab, PO, q8h, Disp# 90 tab, Refills: 2, [id number] Start Date: 08/31/22 Stop Date: 11/29/22 Status: Ordered Quantity: 90.0 Unit: tab Repeat number: 3 Indications: Spondylolisthesis, lumbar region; Muscle spasm of back; Peyton Antarctic Krill Oil Start: 10/24/24 11:13:00 AM EDT Start Date: 10/24/24 Status: Ordered Repeat number: 1 Singulair 10 mg oral tablet Start: 09/03/24 12:28:00 PM EST, 1 tab, PO, qPM, Disp# 30 tab, Refills: 11, [facility] Start Date: 09/03/24 Status: Ordered Quantity: 30.0 Unit: tab Repeat number: 12 Topamax 25 mg oral tablet Start: 08/01/24 4:28:00 PM EST, 1 tab, PO, bid, Disp# 60 tab, Refills: 3, [id number] Start Date: 08/01/24 Stop Date: 11/29/24 Status: Ordered Quantity: 60.0 Unit: tab Repeat number: 4 traZODone 100 mg oral tablet Start: 08/01/24 4:27:00 PM EST, See Instructions, Disp# 60 tab, Refills: 11, 1-2 tab PO qhs, [id number] Start Date: 08/01/24 Status: Ordered Quantity: [...] Status: Ordered Repeat number: 1 Mental Status 11/10/24 Barriers to Learning one year None evide nt Mandatory Health Literacy Documentation Yes Health Literacy Communication Barriers N ever Primary Language Khmer Problem List Condition Confirmation Course Effective Dates [...] Effective Dates Health Status Clinical Service Informant Low back pain Discharge Diagnosis 10/13/24 Non-Specified Fibromyalgia Discharge Diagnosis 10/13/24 Non-Specified Radicular pain of left lower extremity Discharge Diagnosis 10/13/24 Non-Specified ANKYLOSING SPONDYLITIS Discharge Diagnosis 10/13/24 Non-Specified Aortic aneurysm Discharge Diagnosis 11/10/24 Non-Specified Pre-op exam Discharge Diagnosis 11/10/24 Non-Specified Arthritis of right knee Discharge Diagnosis 11/10/24 Non-Specified LVH (left ventricular hypertrophy) Discharge Diagnosis 11/11/24 Non-Specified HTN (hypertension) Discharge Diagnosis 11/11/24 Non-Specified Procedures Procedure Date Related Diagnosis Body [...] L5-S1 3impression: no acute intracranial abnormality 4[facility] Impression: ACR BI-RADS CATEGORY 1: NEGATIVE 1. No evidence of malignancy 5impression: benign-appearing right level 2 mode that measures 0.9 x 0.5 x 0.6 cm. this node contains fatty hilum. this is at site of palpable abnormality. no enlarged lymp nodes are identified 6The lobulated and circumscribed [id number] mas in the 5:00 to 6:00 middle [...] to oldest [Reference Range]: 1 Patient Weight 103.4 kg (11/10/24 1:55 PM) Temperature [36.5-37.9 DegC] 36.7 DegC (11/10/24 1:55 PM) Blood Pressure 116/70mmHg (11/10/24 1:55 PM) Cuff Pulse Pressure 46 mmHg (11/10/24 1:55 PM) Social History Social History Type Response Smoking Status Never smoked cigaret paramjit Sex Female Sex Representation Female (finding) Implantable Device List Procedure Provider Procedure Date Device Type Site Unknown Unknown 02/14/23 Unknown Unknown Device Identifier Serial Number Lot or Batch Number Manufacturing Date Expiration Date Distinct Identification Code MRI Safety Implantable Status Assigning Authority Unknown Unknown [id number] AAF Unknown 11/06/24 Unknown Unknown Active Unknown [...] Unknown Unknown Unknown Unknown Active Unkn own EKG study * Contributor_system, MUSE01: VERIFY, PERFORM Event Display: EKG Authored Date: Please click on link to see image. Cardiology Outpatient Note * DAREK Ramsey Sarah A: PERFORM, MODIFY, MODIFY Event Display: Cardiology Outpt Note Authored Date: Primary Care Provider DO Overton Kristen M Referring Provider DO Overton Kristen M Chief Complaint Pt here for preop R knee History of Present Illness Ms. Roca presents for preop evaluation. She is preparing to have her right knee replaced. She had her left hip replaced this fall and did well. No sob or chest pain. 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 She can ascend a flight of stairs without sob or chest pain. She does not feel that she has had any changes in her functional capacity since her hip surgery in the fall. No change in her chronic edema. Review of Systems All other systems reviewed and negative except as discussed in the HPI Physical Exam Vitals & Measurements T: 36.7 °C BP: 116/70 SpO2: 98% WT: 103.400 kg (Dosing) WT: 103.4 kg Physical Examination General: Alert and oriented, No acute distress. Respiratory: Lungs are clear to auscultation, Respirations are non-labored. Cardiovascular: Normal rate, Regular rhythm, No murmur, No edema, no carotid bruits to auscultation bilaterally. Integumentary: Warm, Dry, [place] Neurologic: Alert, Oriented. Cognition and Speech: Speech clear and coherent. Psychiatric: Cooperative, Appropriate mood & affect. Assessment/Plan Impression: 1. Palpitations possibly related to anxiety and panic attacks. 2. Hypertension with some degree of noncompliance. 3. Dilated ascending aorta at 4.5 cm 10/2023 4. Normal biventricular size and function. Ms. Roca feels well overall. No changes in her functional capacity.She can accomplish 4 METS and ascend a flight of stairs without sob or chest pain. She has some LE edema, but her weight is stable and she appears euvolemic overall. She is a moderate risk for cardiovascular complication perioperatively. She does not need further cardiac workup prior to her surgery. Her EKG was unchnanged from previous Her echo at [facility] measured her ascending aorta at 4.2 cm. She demonstrated moderate LVH which is new. I will have her get lab work to rule out infiltrative disease. Most likely she has some LVH secondary to hypertension. She was a little hypertensive today but she did not take her pills yet. I recommended she check her bp at least once a week and let us know if she is over 135/85. She will return to the clinic in 6 months Problem List/Past Medical History Ongoing ANKYLOSING SPONDYLITIS Antibiotic prophylaxis for dental procedure indicated due to prior joint replacement Aortic aneurysm ASTHMA Body mass index 40+ - severely obese (finding) Essential tremor Fibromyalgia HTN (hypertension) Lumbar spinal stenosis S/P total hip arthroplasty S/P total left hip arthroplasty Sleep disorder Resolved Active DVT Acute infection of sinus Bakers [...] pain Right knee DJD Right knee pain Situational stress Skin lesion Sleep initiation disorder Trochanteric bursitis of right hip Vertigo Vitamin D deficiency Vitamin D deficiency Weight disorder Procedure/Surgical History •Left hip osteoarthritis| Service Date: 11/21/2023•Entire left hip| Service Date: 11/21/2023•Electrodesiccation with curettage| Service Date: 10/04/2022•Epidural steroid injection| Service Date: 07/20/2021•Endometrial biopsy| Service Date: 06/25/2020•CT of head| Service Date: 03/30/2020 Mammogram| Service Date: 02/02/2020•A scan ultrasound| Service Date: 12/22/2019•R diagnostic mammogram, ultrasound| Service Date: 03/18/2019•Total replacement of right hip joint| Service Date: 02/17/2016•MRI of hipright lower et joint without| Service Date: 01/13/2016•CT - Computerized tomography of right hip without contrast| Service Date: 01/13/2016•Hernia repair| Service Date: 04/2012•Colonoscopy| Service Date: 10/28/2008•cholecystectomy| Service Date: 12/06/1999•Tonsillec marion•Colon cancer screening Medications acetaminophen(acetaminophen 500 mg oral tablet), 1000 mg= 2 tab, PO, q8h acetaminophen-oxycodone(Percocet 5 mg-325 mg oral tablet), 2 tab, PO, q6h, PRN albuterol(albuterol CFC free 90 mcg/inh MDI), 2 puff, inhaled, qid, PRN albuterol(albuterol 0.083% for nebulization), 2.5 mg= 3 mL, inhaled, q6h, PRN, 5 refills amLODIPine(amLODIPine 5 mg oral tablet), See Instructions, 3 refills amLODIPine(amLODIPine 2.5 mg oral tablet), 2.5 mg= 1 tab, PO, Daily, 1 refills amoxicillin(amoxicillin 500 mg oral capsule), 2000 mg= 4 cap, PO, As indicated, 3 refills bifidobacterium-lactobacillus(Probiotic Formula), 1 cap, PO, Daily busPIRone(busPIRone 5 mg oral tablet), See Instructions calcium-vitamin D(Citracal + D 250 mg-500 intl units (12.5 mcg) oral tablet, chewable) carisoprodol(Soma 350 mg oral tablet), 350 mg= 1 tab, PO, bid cefdinir(Omnicef 300 mg oral capsule), 300 mg= 1 cap, PO, q12h celecoxib(CeleBREX 200 mg oral capsule), 200 mg= 1 cap, PO, Daily, PRN, 6 refills cetirizine(cetirizine 10 mg oral tablet), See Instructions fluticasone-salmeterol(Advair HFA 230 mcg-21 mcg), 2 puff, inhaled, bid, 6 refills furosemide(furosemide 20 mg oral tablet), See Instructions, 10 refills gabapentin(gabapentin 600 mg oral tablet), 600 mg, PO, Daily, 6 refills hydrOXYzine(Atarax 10 mg oral tablet), 10 mg= 1 tab, PO, tid, PRN, 3 refills magnesium aspartate meclizine(meclizine 25 mg oral tablet), 25 mg= 1 tab, PO, tid, PRN, 3 refills methocarbamol(Robaxin 500 mg oral tablet), 500 mg= 1 tab, PO, q8h, 2 refills milk thistle(Milk Thistle) montelukast(Singulair 10 mg oral tablet), 10 mg= 1 tab, PO, qPM, 11 refills multivitamin(Multiple Vitamins oral tablet), 1 tab, PO, Daily multivitamin(Vitamin B Complex) omega-3 polyunsaturated fatty acids(Peyton Antarctic Krill Oil) oxyCODONE(oxyCODONE 5 mg oral tablet), See Instructions predniSONE(predniSONE 20 mg oral tablet), 40 mg= 2 tab, PO, Daily primidone(primidone 50 mg oral tablet), 1 tab, PO, 5x/Day, 3 refills propranolol(propranolol 160 mg oral capsule, extended release), 1 cap, PO, Daily temazepam(Restoril 15 mg oral capsule), 15 mg= 1 cap, PO, qhs, PRN, 3 refills topiramate(Topamax 25 mg oral tablet), 25 mg= 1 tab, PO, bid, 3 refills traZODone(traZODone 100 mg oral tablet), See Instructions, 11 refills turmeric unknown medication unlisted medication(Boswellia) unlisted medication(Lions Vincent) unlisted medication(choline) unlisted medication(devil's claw) unlisted medication(mullein liquid) valerian(Valerian) Allergies Allergy Not found in Search (Moderate) WHEEZING FROM PERFUMES AKIRA Inhibitors cough Dust IVP dye throat swelling Mold iodine throat swelling Social History Smoking Status Never smoked cigarettes Family History Cancer: Unknown. Diabetes: Father. Heart disease: Unknown. High Blood Pressure: Mother. Rheumatoid Arthritis: Mother. Stroke: Mother and Father. Health Status Family Member(s) Family Member(s) Relationship: Father, Age: 62 Years, Cause: stroke Relationship: Brother, Age: 25 Years, Cause: PA but born with heart "problem" Electronic Signature on File CC: Jazmín Overton DO [address] [id number] Electronically Reviewed/Signed by: DAREK Pat Author Signature Dt/Tm:11/11/2024 04:27 PM [facility] [place] [facility] FCM Outpt Note * DAREK Gomez, Ana Ramsey: PERFORM, MODIFY Event Display: FCM Outpt Note Authored Date: [id number] Assessment/Plan 1. Aortic aneurysm chronic. stable. Given cardiac history I do recommend that she follows up with cardiology prior to her procedure forcardiac clearance. 2. Arthritis of right knee Chronic. Not controlled. Goal resolution EKG and lab work obtained today for preprocedure. EKG NSR reviewed with KG I do feel that patient needs to see cardiology for clearance before her procedure. Patient verbalizes understanding and agrees with plan as well as return precautions. Attestation I attest that I have spent 36 minutes in care and coordination of this patient. This is inclusive of: previsit: chart review and preparation | [id number]: obtaining HPI, PE, discussing Assessment and Plan, and other pertinent discussions/decisions r/t care | postvisit: coordination of care, orders, and documentation/paperwork The above time does not include any procedure time. Chief Complaint Pt here for preop R knee History of Present Illness I have been consulted by Dr. Rizzo to evaluate this patient for a pre- operative exam. The procedure TKA is schedule for 11/19/24. She has a significant history of aortic aneurysm, Fibromyalgia, ankylosing spondylitis, hypertension, sleep disorder, obesity with BMI greater than 40. She follows with cardiology routinely. Most recent echo with EF of 75%. Cardiovascular Risk Factors: Aortic Anerurysm Blood Thinners: none Prior Anesthesia Reactions: none Alcohol use: none Tobacco use: none Substance use: none Planned surgery: intermediate risk (intraperitoneal, intrathoracic, CEA, head/neck, ortho, prostate) Planned anesthesia: general Exercise tolerance: 4 METs (climbing 1 flight, walking up hill, level ground @ 4mph, heavy house work) Revised Cardiac Risk Index: Score [1] [_] High Risk Surgery [_] Ischemic Heart Disease [_] History of CHF [x] History of cerebrovascular disease [_] Insulin therapy for DM [_] Pre-op Cr >2 Review of Systems A total of 10 systems were reviewed. Pertinent positive and negatives addressed in HPI, all other findings are negative. Physical Exam Vitals & Measurements T: 36.7 °C BP: 116/70 SpO2: 98% WT: 103.400 kg (Dosing) WT: 103.4 kg Constitutional: Alert and oriented, No acute distress, Well-appearing, Normal mood and affect Respiratory: Lung sounds are clear, equal chest rise and fall with breathing, no pursed lip breathing Cardiovascular: Heart sounds regular rate and rhythm, without gallop or murmur, +2 edema HEENT: Normocephalic, atraumatic, conjunctiva are clear, sclera non-icteric Skin: Warm, pink, dry, intact Problem List/Past Medical History Ongoing ANKYLOSING SPONDYLITIS Antibiotic prophylaxis for dental procedure indicated due to prior joint replacement Aortic aneurysm ASTHMA Body mass index 40+ - severely obese (finding) Essential tremor Fibromyalgia HTN (hypertension) Lumbar spinal stenosis S/P total hip arthroplasty S/P total left hip arthroplasty Sleep disorder Resolved Active DVT Acute infection of sinus Bakers [...] pain Right knee DJD Right knee pain Situational stress Skin lesion Sleep initiation disorder Trochanteric bursitis of right hip Vertigo Vitamin D deficiency Vitamin D deficiency Weight disorder Procedure/Surgical History •Left hip osteoarthritis| Service Date: 11/21/2023•Entire left hip| Service Date: 11/21/2023•Electrodesiccation with curettage| Service Date: 10/04/2022•Epidural steroid injection| Service Date: 07/20/2021•Endometrial biopsy| Service Date: 06/25/2020•CT of head| Service Date: 03/30/2020 Mammogram| Service Date: 02/02/2020•A scan ultrasound| Service Date: 12/22/2019•R diagnostic mammogram, ultrasound| Service Date: 03/18/2019•Total replacement of right hip joint| Service Date: 02/17/2016•MRI of hipright lower et joint without| Service Date: 01/13/2016•CT - Computerized tomography of right hip without contrast| Service Date: 01/13/2016•Hernia repair| Service Date: 04/2012•Colonoscopy| Service Date: 10/28/2008•cholecystectomy| Service Date: 12/06/1999•Tonsillec marion•Colon cancer screening Medications acetaminophen(acetaminophen 500 mg oral tablet), 1000 mg= 2 tab, PO, q8h acetaminophen-oxycodone(Percocet 5 mg-325 mg oral tablet), 2 tab, PO, q6h, PRN albuterol(albuterol CFC free 90 mcg/inh MDI), 2 puff, inhaled, qid, PRN albuterol(albuterol 0.083% for nebulization), 2.5 mg= 3 mL, inhaled, q6h, PRN, 5 refills amLODIPine(amLODIPine 5 mg oral tablet), See Instructions, 3 refills amLODIPine(amLODIPine 2.5 mg oral tablet), 2.5 mg= 1 tab, PO, Daily, 1 refills amoxicillin(amoxicillin 500 mg oral capsule), 2000 mg= 4 cap, PO, As indicated, 3 refills benfotiamine bifidobacterium-lactobacillus(Probiotic Formula), 1 cap, PO, Daily busPIRone(busPIRone 5 mg oral tablet), See Instructions calcium-vitamin D(Citracal + D 250 mg-500 intl units (12.5 mcg) oral tablet, chewable) carisoprodol(Soma 350 mg oral tablet), 350 mg= 1 tab, PO, bid cefdinir(Omnicef 300 mg oral capsule), 300 mg= 1 cap, PO, q12h celecoxib(CeleBREX 200 mg oral capsule), 200 mg= 1 cap, PO, Daily, PRN, 6 refills cetirizine(cetirizine 10 mg oral tablet), See Instructions fluticasone-salmeterol(Advair HFA 230 mcg-21 mcg), 2 puff, inhaled, bid, 6 refills furosemide(furosemide 20 mg oral tablet), See Instructions, 10 refills gabapentin(gabapentin 600 mg oral tablet), 600 mg, PO, Daily, 6 refills hydrOXYzine(Atarax 10 mg oral tablet), 10 mg= 1 tab, PO, tid, PRN, 3 refills magnesium aspartate meclizine(meclizine 25 mg oral tablet), 25 mg= 1 tab, PO, tid, PRN, 3 refills methocarbamol(Robaxin 500 mg oral tablet), 500 mg= 1 tab, PO, q8h, 2 refills milk thistle(Milk Thistle) montelukast(Singulair 10 mg oral tablet), 10 mg= 1 tab, PO, qPM, 11 refills multivitamin(Multiple Vitamins oral tablet), 1 tab, PO, Daily multivitamin(Vitamin B Complex) omega-3 polyunsaturated fatty acids(Peyton Antarctic Krill Oil) omega-3 polyunsaturated fatty acids(omega-3 polyunsaturated fatty acids oral capsule), 1 cap, PO, Daily oxyCODONE(oxyCODONE 5 mg oral tablet), See Instructions predniSONE(predniSONE 20 mg oral tablet), 40 mg= 2 tab, PO, Daily primidone(primidone 50 mg oral tablet), 1 tab, PO, 5x/Day, 3 refills propranolol(propranolol 160 mg oral capsule, extended release), 1 cap, PO, Daily sulfaSALAzine(sulfaSALAzine 500 mg oral delayed release tablet), 500 mg= 1 tab, PO, Daily temazepam(Restoril 15 mg oral capsule), 15 mg= 1 cap, PO, qhs, PRN, 3 refills topiramate(Topamax 25 mg oral tablet), 25 mg= 1 tab, PO, bid, 3 refills traZODone(traZODone 100 mg oral tablet), See Instructions, 11 refills turmeric unknown medication unlisted medication(Boswellia) unlisted medication(Lions Vincent) unlisted medication(choline) unlisted medication(devil's claw) unlisted medication(mullein liquid) valerian(Valerian) zolpidem(Ambien), PRN Allergies Allergy Not found in Search (Moderate) WHEEZING FROM PERFUMES AKIRA Inhibitors cough Dust IVP dye throat swelling Mold iodine throat swelling Social History Smoking Status Never smoked cigarettes Family History Cancer: Unknown. Diabetes: Father. Heart disease: Unknown. High Blood Pressure: Mother. Rheumatoid Arthritis: Mother. Stroke: Mother and Father. Health Status Family Member(s) Family Member(s) Relationship: Father, Age: 62 Years, Cause: stroke Relationship: Brother, Age: 25 Years, Cause: PA but born with heart "problem" Immunizations Vaccine [...] 2021-07-18: Historical information-source unspecified Recommendations Health Maintenance Pending (in the next year) OverDue Adult Influenza Vaccine due 01/07/24 and every 1 year Due Adult Social Determinants of Health Screening due 11/10/24 Unknown Frequency Hepatitis C Screening due 11/10/24 One-time only Osteoporosis Screening due 11/10/24 One-time only Pneumococcal Vaccine Older Adults due 11/10/24 One-time only Seasonal COVID 19 Vaccine due 11/10/24 Unknown Frequency Shingles Vaccine due 11/10/24 One-time only Satisfied (in the past 1 year) Satisfied Body Mass Index on 10/24/24. Satisfied by KELSEY Hansen Cassidy Breast Cancer Screening on 10/29/24. Satisfied by KELSEY Shine Lynnae Lipid Screening on 06/16/24. Satisfied by Contributor[employer]system, [employer] Electronic Signature on File Electronically Reviewed/Signed by: DAREK Denise Author Signature Dt/Tm:11/10/2024 03:34 PM Department of Family Medicine [facility] Patient Care team information Care Team Personnel Name: DAREK Chinchilla Tara Position: Nurse Pract - Family Med Member Role: Lifetime Relationship Address: [address] [place] [address] Telecom: [phone] Name: DO Diego Franklin J Position: Physician - Family Med Member Role: Lifetime Relationship Address: [address] [facility] [address] Telecom: [phone] Name: DO Overton Kristen M Position: Physician - Family Med Member Role: Lifetime Relationship Address: [address] [facility] [address] Telecom: [phone] Name: DAREK Evans Lorella G Position: Referring DIRECT Member Role: Lifetime - never expires Address: [address] [place] [id number] Telecom: [phone] Care Team Related Persons Name: POLLY ROCA Name: LOBO ROCA Name: SAADIA ROCA Name: JOHN TARANGO Insurance Providers Guarantor name: MAISHA Almanzar ROCA Health Plan Information #: 1 Payer: [employer] PPO Member Number: [id number] Policy Number: NA Group Number: [id number] Payer Identifier: [id number] Health Plan Information #: 2 Payer: [employer] P[employer] Member Number: [id number] Policy Number: NA Group Number: [id number] Payer Identifier: [id number]
[2024-11-19] MEDS: LR 500ML BOLUS, THEN 15ML/HR IV SCH (06:11)
[2024-11-19] MEDS: LR 60ML/HR IV SCH (06:11)
[2024-11-19] MEDS ORDERED: ROPIVACAINE 0.5% 5 MG/ML 30 ML VIAL ONE (06:18)
[2024-11-19] MEDS ORDERED: BUPIVACAINE 0.5 % 5 MG/1 ML PF 10ML VIAL ONE (06:18)
[2024-11-19] MEDS ORDERED: ONDANSETRON INJ 2 MG/ML 2 ML VIAL ONE (06:39)
[2024-11-19] MEDS ORDERED: DEXAMETHASONE SOD INJ 4 MG/ML VIAL ONE (06:39)
[2024-11-19] MEDS ORDERED: MIDAZOLAM HCL 1 MG/ML 2ML VIAL ONE ×2 (06:39→08:19)
[2024-11-19] MEDS ORDERED: LIDOCAINE 2% 2 ML VIAL/AMP(20MG/ML) INFIL ONE (06:39)
[2024-11-19] MEDS ORDERED: PROPOFOL IV EMULSION 10 MG/ML 20 ML VIAL IV ONE (06:39)
[2024-11-19] MEDS ORDERED: fentaNYL citrate PF 100 MCG/2 ML VIAL ONE (06:39)
[2024-11-19] MEDS: TRANEXAMIC ACID 1,000 MG **IV Pre-op IV SCH (06:49)
[2024-11-19] MEDS: ceFAZolin 2000MG 2,000 MG/15 ML SYR IV SCH ×2 (07:00→16:11)
[2024-11-19] MEDS ORDERED: ePHEDrine sulfate 50 MG/5 ML SYR ONE (07:08)
[2024-11-19] MEDS ORDERED: ceFAZolin 330 MG/ML 1 GM VIAL ONE (07:21)
[2024-11-19] MEDS ORDERED: PHENYLEPHRINE 100MCG/ML 5ML SYR ONE (07:31)
[2024-11-19] MEDS: ORTHO JOINT ANESTHETIC ONE (07:32)
[2024-11-19] MEDS: ceFAZolin 330 MG/ML 1 GM VIAL IV STA (08:11)
[2024-11-19] MEDS: TRANEXAMIC ACID 1,000 MG **IV Intra-op IV SCH (08:14)
[2024-11-19] MEDS: ROPIV 0.5% 246mg, Ketorolac 30mg, EPINEPHrine 0.5mg in NSS INFIL SCH (08:17)
--- NOTE | 2024-11-19 08:44 | Post Operative Brief Note ---
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
--- NOTE | 2024-11-19 08:48 | Operative Report ---
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 She had a significant flexion contracture and varus alignment. Once everything was prepped and draped tourniquet was inflated to 275 mmHg after exsanguination limb with a rubber arthrograms for total of roughly 55 minutes. Midline exposure utilized parapatellar thyrotomy performed synovectomy completed osteophytes resected distal femur entered cruciates resected tibia subluxated menisci resected. Distal femur then resected 11 mm proximal tibia then resected 4 mm off the high side. The extension gap was excellent. Femur was sized to a 6 appropriate cutting block applied and the anterior posterior condylar chamfer cuts made. Flexion gap checked it was excellent posterior capsule was then injected. The box cut was then made a size 6 fit well the lug holes made. Tibia was then subluxated anteriorly and appropriate cutting block applied was a size 5 we went with a revision tray to give her little bit more bone support based on her size. Was then broached reamed appropriately 6 x 7 mm spacer was excellent stability in excellent alignment full extension and full flexion. Patella was then everted and resected leaving about for 14 mm. Seating was made and a 35 button tracked well. Ortho mix was then injected all about the knee the knee was then soaked in Betadine for 3 minutes and then irrigated and then an extra dose of TXA given at the end as well as antibiotic 1 g of Ancef. That was given just before the tourniquet was deflated. Once everything was ready for cementing that permits were cemented in position tibia femur patella in that order at 12 minutes of tourniquet deflated minor bleeding points controlled with the electrocautery at 14 minutes the knee was flexed and the spacer removed no cement removal really required. Wound irrigated with Pulsavac Betadine the permanent liner seated knee reduced and closed at 40 degrees of flexion with #2 Vicryl 2-0 Vicryl and standstill clips. Appropriate dressing applied patient transferred recovery in satisfactory condition he tolerated procedure well. Summary of implants size 6 right femur size 5 rotating platform tray size 35 patella with size 6 x 7 mm rotating platform polyethylene insert 2 bags of Palacos G cement. EBL was 25 cc crystalloid roughly 1100 cc bone pathology pending DVT prophylaxis to initiate tomorrow. Family attempted to be contacted around [phone] there was no answer left a message. I attest to the content of the Intraoperative Record and any orders documented therein. Any exceptions are noted below.
--- NOTE | 2024-11-19 08:49 | Discharge Summary ---
Date of Service November 20, 2024 Admission HPI Per Admitting Provider Severe pain right knee failed conservative management Principal Diagnosis Osteoarthritis right knee Discharge Data Allergies Allergy/AdvReac Type Severity Reaction Status Date / Time AKIRA Inhibitors Allergy Intermediate Wheezing Verified 11/19/24 06:06 Iodinated Contrast Media Allergy Intermediate Wheezing Verified 11/19/24 06:06 mold Allergy Intermediate Sneezing Verified 11/19/24 06:06 Aromatic Oils Allergy Intermediate Wheezing Uncoded 11/19/24 06:06 (Perfumes) Dust Allergy Mild Dust, Uncoded 11/19/24 06:06 mold- runny nose Vaccinations None Consultations None Procedures Performed Operation Date: 11/19/24 07:00 <No data on this case meets the specified criteria> Cemented right total knee replacement Ordered Studies 11/19/24 05:00 US - OR guided needle placemen Stat Hospital Course (1) Status post right knee replacement: Total Time Total Time Spent Total Time Spent (In Minutes): 10 Discharge Plan Discharge Items Patient Disposition: Home - Self-Care Reason For Visit: Right Knee Osteoarthritis Discharge Diagnosis: Status post right knee replacement cemented Activity: Per Instructions section Lifting: Wait until after follow-up appointment Bathing: Keep incision dry Sexual Activity: Wait until after follow-up appointment Exercise/Sports: Wait until after follow-up appointment Driving/Machine Use: No driving until cleared by Dr. Malik Weightbearing: Full weightbearing Non-emergency contact: Surgeon Call non-emergency contact if: you have any medication questions, your pain is not controlled, your temperature is above 101, your wound has increased redness, your wound has increased drainage and your wound pain has increased Follow-up/Referrals: Jazmín Overton DO [Primary Care Provider] - Diet: Heart Healthy Addtl Attending Provider Instructions: New Medicine: * You will likely be taking one or more of these medications: 1. Percocet - Take, as directed, when you need it, every four to six hours to control your pain. 2. Iron Sulfate - Take 1x each day for the month after surgery to help you replace the blood lost during surgery. 3. Eliquis - Thins your blood to lessen the chance of forming a blood clot. * The most common side effects of pain medicine and iron are nausea and cons tipation. If nausea or constipation is too much of a problem or if you have any questions about your new medicines or doses, call [facility] at . We will try to help you manage these issues. "VERY IMPORTANT TO READ AND REVIEW" Blood Clots and Blood Thinning Medicine: * You are given Eliquis during the immediate post-operative period to lessen the risk of blood clots forming in your legs and/or lungs. It is usually given for 4 weeks after surgery. Pain: * The immediate post-operative period after knee replacement surgery is often quite painful. * You are given a prescription for pain medicine. You should take it, as directed, when you need it, especially before physical therapy and before going to bed. Pain that interferes with sleep is very common and can last several months. * You will likely need pain medicine for the first four to six weeks. It will not stop all of the pain. The pain will lessen and as you feel better, you may change to milder pain medicine such as Tylenol. * The most common side effects of pain medicine are nausea and constipation, so don't take more than you need. Physical Therapy: * You will have physical therapy two or three times each week for four to six weeks after your surgery in order to regain your knee range of motion and to retrain your knee to work properly. * It is just as important to make sure you are getting your knee perfectly straight as it is to regain your knee bend. * Taking a pain pill an hour before therapy can help you have a more productive and comfortable therapy session if needed. Home Exercise: * You were shown a series of exercises (heel props, heel slides, etc.) in the hospital. Do these exercises three to four times each day including the exercises you were shown in physical therapy. Walking: * Get up and walk several times each day. For the first four weeks, try not to stand or walk for more than one hour at a time. If you do stand or walk for more than one hour, you will not hurt anything, but your knee and leg will likely swell. * As you feel comfortable, you may change from the walker or crutches to a cane and then to independent walking. SELF CARE INSTRUCTIONS AFTER TOTAL KNEE REPLACEMENT A. You may need to continue a physical therapy program after discharge from the hospital. There are several options available to you. Your doctor will assist you in selecting the best one for you. 1. An out-patient facility 2 to 3 times a week for therapy or home therapy. 2. Continue working on all exercises taught to you in the hospital. Your goals should be to increase bending of your knee to 90 degrees and beyond and to fully straighten your knee. B. You may progress at your own pace from walking with a walker or crutches to a cane; then to no assistive devices. C. Make walking a part of your daily routine. Be up as much as comfortable with rest periods throughout the day. Rest with leg elevation is very important. Use the ice wrap frequently for the first 3-4 weeks. D. There are no restrictions on activities. You may ride in a car, shop, participate in screw machine tender and all social activities. E. Wear the long elastic stockings (ZACH hose) 20 hours a day for six weeks after surgery. They can be removed several times a day for laundering and for a shower. F. Do not place a pillow behind your knee when resting. A pillow at your ankle is okay. G. You may return to previous diet. VERY IMPORTANT TO READ AND REVIEW A. Take Eliquis (blood thinning medication) as directed by your doctor. B. There are a few signs you need to watch for after you are home. Call [facility] if you notice any of the followin. Increased severe knee pain. Some pain is expected especially when you exercise. 2. Increased swelling in your leg or knee; pain or swelling of the calf muscle in either lower leg. 3. Any fluid drainage from the incision. 4. Shortness of breath or chest pain. C. Please call [facility] at if you have any concerns or questions about your operation or recovery. The doctor or his nurse will return your call promptly. D. You must take antibiotics before dental work, bladder, bowel or other surgery. Call the office to obtain a prescription at least 2 days prior to your appointment. * CALL IF INCREASED PAIN, REDNESS, DRAINAGE OR FEVER GREATER THAT 101. * Sutures should be removed 12-14 days after surgery unless you are on chronic steroids, then it will be 14-18 days after surgery. Call your doctor if: * Temperature above 101 degrees F. * Pain not relieved by pain medicine ordered. * Increased drainage or redness from incision. * Notify your doctor with any questions or concerns. MEDICATIONS: * Please take your prescriptions as instructed at your pre-op appointment and/or see medication discharge instructions listed above. * If concerns develop, call your physician's office at . SPECIAL CARE INSTRUCTIONS: * Ice/Elevate as instructed. * Keep dressing clean, dry, intact. * Your surgical extremity may be discolored due to prepping agents used on the skin. A bluish-green tint is a normal variant and should not cause alarm. Call your doctor at [phone] if: * Temperature above 101 degrees * Pain not relieved by pain medicine ordered * There is increased drainage or redness from any incision * You have any unanswered questions, problems or concerns. FOLLOW UP VISIT: * If not already scheduled, please call the office at to schedule a follow-up appointment. Pending Studies at Discharge: Yes Studies:: bone pathology Stand-Alone Forms: My [facility] Medications and DC Order Prescriptions: No Action Advair HFA 230-21 mcg/actuation HFA aerosol inhaler 2 puff inhalation BID PRN (Reason: Wheezing) albuterol sulfate 90 mcg/actuation HFA aerosol inhaler 1 - 2 puff inhalation .Q4-6H PRN (Reason: Shortness Of Breath) oxycodone 5 mg capsule 5 mg PO Q6H PRN (Reason: Pain) Hold Instructions: Resume on 12/13/23. amlodipine 5 mg tablet 7.5 mg PO QAM cyclobenzaprine 10 mg tablet 10 mg PO TID PRN (Reason: MUSCLE SPASMS) multivitamin [Multiple Vitamins] Tablet 1 tab PO QAM trazodone 50 mg tablet 50 - 75 mg PO HS PRN (Reason: Sleep) celecoxib [Celebrex] 200 mg capsule 200 mg PO QAM Hold Instructions: Resume on 01/05/24. propranolol 80 mg capsule,extended release 24 hr 160 mg PO QAM furosemide [Lasix] 20 mg tablet 20 mg PO DAILY PRN (Reason: Fluid Retention) Immune Support 250-12.5 mg Tablet,Chewable 1 tab PO HS magnesium oxide 400 mg magnesium Tablet 400 mg PO DAILY benzonatate 100 mg capsule 100 mg PO TID PRN (Reason: Cough) primidone [Mysoline] 50 mg Tablet 50 mg PO QAM Herbal Blend 1 dose PO DAILY Discharge Orders: Discharge Order (Routine); Ordered 11/20/24 Ordered By: Emmanuel Malik Admission Data Admit Date/Time: 11/19/24 09:08 Attending Provider: Emmanuel Malik Admit Provider: Emmanuel Malik Primary Care Provider: Jazmín Overton
--- NOTE | 2024-11-19 08:49 | Orthopedic Progress Note ---
Date of Service November 19, 2024 Orthopedic Progress Note Patient underwent total knee replacement right. Denies chest pain shortness of breath fever chills nausea vomiting or headache. Vital signs are stable she is afebrile. Neurovascular check is are already started to wear off on the spinal she is already we given his toes and try to straighten her knee. Wound dressing clean dry and intact. X-ray pending. attempted be contacted [place] [phone] left voicemail no one picked up.
--- NOTE | 2024-11-19 09:01 | Operative Report ---
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 She had tried conservative care measures without improvement. She elected to proceed with surgical invention after being educated about potential risks and outcomes. Preoperative imaging was previously obtained. Description of Procedure The patient was administered a spinal anesthetic and then taken to the operating room where she was given sedation. She was prepped and draped in the usual sterile fashion. Please see Dr. Malik's operative report for specifics of the procedure. I was present for the entire case from initial patient positioning through final wound closure. Assistance was provided in tissue retraction, hemostasis, trial implant placement, final implant placement, and final wound closure. The patient was taken to the recovery room in satisfactory condition. I attest to the content of the Intraoperative Record and any orders documented therein. Any exceptions are noted below.
--- NOTE | 2024-11-19 09:17 | XRay Report ---
XR knee RT 1 or 2V routine CLINICAL HISTORY: S/P R TKA COMPARISON: 09/08/2024 FINDINGS: Right knee prosthesis shows no hardware complication. There is expected soft tissue gas. S kin sven are present. IMPRESSION: Unremarkable postoperative exam. ACT 112: Negative or not required by law. Electronically signed by: Yosi Washington M.D. 11/19/2024 9:16 AM
[2024-11-19] MEDS ORDERED: oxyCODONE HCL IR 5 MG TAB (IMMEDIATE RELEASE) PO PRN (09:55)
[2024-11-19] MEDS ORDERED: ALBUTEROL HFA 8 GM INHALER INH PRN (09:55)
[2024-11-19] MEDS ORDERED: NALOXONE HCL 0.4 MG/1 ML VIAL/CARP IV PRN (09:55)
[2024-11-19] MEDS ORDERED: bisacodyL 10 MG SUPP PR PRN (09:55)
[2024-11-19] MEDS ORDERED: ALUMINUM/MAGNESIUM SUSP 30 ML UDC PO PRN (09:55)
[2024-11-19] MEDS ORDERED: BENZONATATE 100 MG CAPSULE PO PRN (09:55)
[2024-11-19] MEDS ORDERED: FUROSEMIDE 20 MG TAB PO PRN (09:55)
[2024-11-19] MEDS ORDERED: diphenhydrAMINE 50 MG/ML VIAL IV PRN (09:55)
[2024-11-19] MEDS ORDERED: HYDROmorphone INJ 0.5 MG/0.5 ML SYR IV PRN (09:55)
[2024-11-19] MEDS ORDERED: MAGNESIUM HYDROXIDE SUSP 30 ML UDC PO PRN (09:55)
[2024-11-19] MEDS ORDERED: METOCLOPRAMIDE HCL INJ 5 MG/ML 2 ML VIAL IV PRN (09:55)
[2024-11-19] MEDS ORDERED: traZODone HCL 50 MG TAB PO PRN (09:55)
[2024-11-19] MEDS ORDERED: VANCOMYCIN CONSULT ACTIVE PRN (09:55)
[2024-11-19] MEDS ORDERED: ONDANSETRON INJ 2 MG/ML 2 ML VIAL IV PRN (09:55)
--- NOTE | 2024-11-19 09:59 | Anesthesiology Progress Note ---
Date of Service November 19, 2024 Anesthesia Post Procedure Vital Signs Vital Signs: Temp Pulse Pulse Resp BP Pulse Ox O2 Del Method 11/19/24 09:30 36.4 C L 79 14 128/73 95 Room Air 11/19/24 09:20 79 12 146/92 H 97 Room Air 11/19/24 09:10 81 14 159/90 H 98 Oxymask 11/19/24 08:58 36.5 C 89 16 149/90 H 100 Oxymask 11/19/24 05:58 36.7 C 87 18 149/89 H 96 Room Air O2 Flow Rate 11/19/24 09:30 11/19/24 09:20 11/19/24 09:10 3 11/19/24 08:58 6 11/19/24 05:58 Pain Intensity Left Hip: Pain Intensity: 3 Transfer of Care Handoff Completed per policy Notes Mental Status: alert / awake / arousable and participated in evaluation Patient Amnestic to Procedure: Yes Nausea / Vomiting: adequately controlled Pain: adequately controlled Airway Patency, RR, SpO2: stable & adequate BP & HR: stable & adequate Hydration State: stable & adequate Anesthetic Complications: no major complications apparent
[2024-11-19] MEDS: VANCOMYCIN HCL 1,500 MG in SODIUM CHLORIDE 0.9% 500 ML IV ONE (11:06)
[2024-11-19] MEDS: KETOROLAC TROMETHAMINE 15 MG/ML VIAL IV SCH (12:00)
[2024-11-19] MEDS: ACETAMINOPHEN 500 MG TAB PO SCH (13:34)
[2024-11-19] MEDS: SODIUM CHLORIDE 0.9% 1,000 ML IV SCH (14:18)
[2024-11-19] MEDS: ASCORBIC ACID 500 MG TAB PO SCH (16:11)
[2024-11-19] MEDS: FERROUS GLUCONATE 324 MG TAB PO SCH (16:11)
[2024-11-19] MEDS: SENNA 8.6 MG TAB PO SCH (20:08)
[2024-11-19] MEDS: DOCUSATE SODIUM 100 MG CAP PO SCH (20:08)
[2024-11-20 06:44] LABS: Hematocrit (blood only) 34.8 % (37.0-47.0); Hemoglobin 11.4 g/dl (12.0-16.0); Mean Corpuscular Hemoglobin 29.5 pg (25.0-34.0); Mean Corpuscular Hgb Conc 32.8 g/dL (32.0-36.0); Mean Corpuscular Volume 89.9 fL (80.0-100.0); Mean Platelet Volume 10.2 fL (9.4-12.4); Platelet Count 293 K/uL (130-400); RDW Coefficient of Variation 14.2 % (11.5-14.5); RDW Standard Deviation 46.1 fL (36.4-46.3); Red Blood Count 3.87 M/uL (4.20-5.40)
--- NOTE | 2024-11-20 06:54 | Orthopedic Progress Note ---
Date of Service November 20, 2024 Assessment & Plan Admission and Anticipated Discharge Date Admission Date: November 19, 2024 Orthopedic Progress Note Postop day #1 status post right total knee replacement. She is doing well. Denies chest pain shortness of breath fever chills nausea vomiting or headache. Vital signs are stable she is afebrile. Neurovascular check from a sciatic nerve is normal. Calves nontender. Wound dressing clean dry and intact. X-rays are good. A.m. lab hematocrit stable. Assessment doing well continue to progress to home after PT OT dressing change by PA today initiate anticoagulation. Follow-up in 2 weeks
[2024-11-20 06:59] LABS: BUN Creatinine Ratio 32.6 (10-20); Potassium 3.9 mmol/L (3.5-5.1)
[2024-11-20 07:24] VITALS: RESP 18; TEMP 98.6; O2SAT 97
[2024-11-20] MEDS: FLUTICASONE/VILANTEROL 200/25MCG 14 PUFFS/INHALER INH SCH (08:34)
[2024-11-20] MEDS: MAGNESIUM OXIDE 400 MG TAB PO SCH (08:35)
[2024-11-20] MEDS: MULTIVITAMIN TAB PO SCH (08:35)
[2024-11-20] MEDS: APIXABAN 2.5 MG TAB PO SCH (08:35)
[2024-11-20] MEDS: PRIMIDONE 50 MG TAB PO SCH (08:35)
[2024-11-20] MEDS: PROPRANOLOL HCL LA 80 MG CAPCR PO SCH (08:35)
[2024-11-20] MEDS: amLODIPine BESYLATE 5 MG TAB PO SCH (08:35)
[2024-11-20] MEDS: dexAMETHasone 10 MG in SYRINGE 0 ML IV SCH (08:37)
--- NOTE | 2024-11-20 09:04 | Orthopedic Progress Note ---
Date of Service November 20, 2024 Assessment & Plan (1) Status post right knee replacement: Plan: The patient was educated regarding today's findings. Conservative care measures were discussed. Her postsurgical dressing was changed by me. ZACH stocking was reapplied Continue with ice and elevation frequently Prescriptions for Eliquis and Percocet were sent to her pharmacy. She will follow-up in the office tomorrow as scheduled for PT Weight-bear as tolerated with the knee immobilizer today and tomorrow. It can be discontinued entirely on Sunday morning Written discharge instructions were provided. Admission and Anticipated Discharge Date Admission Date: November 19, 2024 Subjective this 64-year-old female is seen today in her room. She is 1 day status post right total knee arthroplasty. She states she did not sleep well overnight. She felt uncomfortable. She did not have much pain in the right knee. She states there were interruptions overnight which disturbed her sleep. She feels ready to go home. She denies any chest pain, shortness of breath, nausea, vomiting, or abdominal pain. No headache. Hip pain. She is currently sitting in her bedside chair finishing her breakfast. No additional complaints. Review of Systems Review of Systems: Unchanged from yesterday. Physical Exam Physical Exam: General: Well-developed, well-nourished, middle-aged female, in no acute distress. Sitting in her bedside chair. Alert and oriented. Skin: Warm and dry with good turgor. She has postsurgical dressings in place on the right knee. Upon removal, she has scant dried blood on the inner dressings. Robson are in place. Wound edges are well-approximated. No erythema. Very mild edema at the knee. No ecchymosis yet. No active bleeding. Musculoskeletal: The patient has intact motor function of her ankle and knee. She is able to elevate the leg off the floor, but cannot get full extension yet. Passively I can place her in full extension. Flexion to 60 degrees easily. Neurologic: Gross sensation is intact across the right leg by soft touch. Peripheral pulses are 2+. Results & Data Vital Signs (Past 12 Hours) Vital Signs Temp Pulse Pulse Resp BP BP Pulse Ox 11/20/24 07:24 37.0 C 87 18 147/87 H 97 11/20/24 02:53 36.8 C 80 20 156/90 H 99 11/19/24 23:04 37.1 C 79 18 158/95 H 98 O2 Del Method 11/20/24 07:24 Room Air 11/20/24 02:53 Room Air 11/19/24 23:04 Room Air Laboratory Results CBC obtained this morning shows a white count of 8.9. H&H of 11.4 and 34.8. Platelets 293,000. PRP is unremarkable. Glucose this morning is 120.
[2024-11-20 09:49] VITALS: BP 156/90; PULSE 80
== END 2024-11-20 11:42 | disposition home or self-care (01) ==
LOC: 3E 05:28 → ASU 05:28